=== PATIENT | male | born 1930 | race Caucasian/White ===

== ENCOUNTER 2017-01-03 18:29 | Inpatient (IN) | payer MEDICARE, BC ==
[2017-01-03 20:12] LABS: Hematocrit 32 % (42-52); Hemoglobin 10.4 g/dl (14.0-18.0); Mean Corpuscular HGB Conc 32 g/dl (31-36); Mean Corpuscular Hemoglobin 26 pg (27-31); Mean Corpuscular Volume 80 fL (80-94); Mean Platelet Volume 9 um3 (7.4-10.4); Red Blood Count 4.04 10^6/ul (4.0-5.4); Red Cell Distribution Width 17 % (10.5-15); White Blood Count 5.9 10^3/ul (3.5-10.8)
[2017-01-03 20:28] LABS: Albumin 3.1 g/dL (3.2-5.2); BUN/Creatinine Ratio 28.2 (8-20); C Reactive Protein 23.65 mg/L (< 5.00); Calcium 8.7 mg/dL (8.6-10.3); EGFR African American 54.7 (>60); EGFR Non-African American 42.5 (>60); Globulin 3.4 g/dL (2-4); Magnesium 2.3 mg/dL (1.9-2.7); Potassium 4.5 mmol/L (3.5-5.0); Total Bilirubin 0.5 mg/dL (0.2-1.0); Total Protein 6.5 g/dL (6.4-8.9)
[2017-01-03 20:32] LABS: Troponin I 0.06 ng/mL (<0.04)
--- NOTE | 2017-01-03 20:32 | RAD ---
HISTORY: Shortness of breath COMPARISONS: December 17, 2016 VIEWS: 1: frontal portable view of the chest at 8:20 PM FINDINGS: LINES AND TUBES: None. CARDIOMEDIASTINAL SILHOUETTE: The cardiomediastinal silhouette is normal for portable technique. PLEURA: There is blunting of left costophrenic angle. There is persistent loculated pleural fluid on the right. LUNG PARENCHYMA: There is multifocal confluent alveolar opacification throughout both lung salvador. ABDOMEN: The upper abdomen is clear. There is no subphrenic gas. BONES AND SOFT TISSUES: Degenerative changes are noted IMPRESSION: 1. MULTIFOCAL CONSOLIDATION THROUGHOUT BOTH LUNGS. 2. LEFT PLEURAL EFFUSION. 3. AGAIN NOTED IS LOCULATED RIGHT PLEURAL EFFUSION. 4. RECOMMEND FOLLOW-UP UNTIL RESOLUTION TO EXCLUDE UNDERLYING PULMONARY PARENCHYMAL PATHOLOGY
[2017-01-03 20:33] LABS: Urine Bacteria Absent (Absent); Urine Bilirubin Negative (Negative); Urine Glucose Negative (Negative); Urine Nitrite Negative (Negative)
[2017-01-03 21:07] LABS: TSH (Thyroid Stimulating Horm) 2.72 mcIU/mL (0.34-5.60)
[2017-01-03] MEDS ORDERED: Acetaminophen TAB* 325 MG PO PRN (21:39)
[2017-01-03] MEDS ORDERED: Furosemide IV* 10 MG/ML 10 ML VIAL (100 MG) IV ONE (21:40)
[2017-01-03] MEDS ORDERED: Aspirin Low Dose CHEW TAB* 81 MG PO ONE (21:40)
[2017-01-03] MEDS ORDERED: Ondansetron INJ* 2 MG/ML VIAL IV PRN (21:41)
[2017-01-03] MEDS ORDERED: Melatonin (NF) 3 MG TAB PO PRN (21:41)
--- NOTE | 2017-01-03 22:03 | RAD ---
HISTORY: Bilateral lower extremity edema COMPARISONS: None relevant TECHNIQUE: Multiple transverse and longitudinal ultrasound images were obtained of the bilateral lower extremities from the level of the common femoral vein inferiorly through to the infrapopliteal veins using grayscale, color Doppler, and spectral Doppler imaging with and without compression and with augmentation. FINDINGS: VEINS: The venous system of the bilateral lower extremities is compressible throughout its course, with normal flow on color Doppler imaging and normal response to augmentation on spectral Doppler imaging. SOFT TISSUES: There is extensive subcutaneous edema. OTHER FINDINGS: None. IMPRESSION: NO RIGHT LOWER EXTREMITY DEEP VEIN THROMBOSIS. NO LEFT LOWER EXTREMITY DEEP VEIN THROMBOSIS
--- NOTE | 2017-01-03 22:27 | HP ---
H&P (Free Text) History and Physical: PCP: Sandoval Garza MD Cardiology: Maddie Mora MD Urology: Nikhil Pruitt MD Date/Time: 01/03/20172139 CC: LE swelling HPI: Mr Vela is an 86YO male HX cardiomyopathy EF reportedly 10%, chronic systolic HF, CAD/MA, HLD, HTN who experienced a significant functional decline ~ 6 weeks ago while still living in [place]. He moved to [place] to live with one of his daughters 3 weeks ago experiencing progressive SOB, fatigue, generalized weakness, and BLE swelling for which his daughter brings him in tonight concerned for DVT. Mr Vela declines to give his history requesting his daughter do it for him. He does participate by interjecting corrections occasional questions and answering current status requests. He denies chest pain , palpitations, N/V, F/C, focal weakness, or other acute issues. 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 HLD HTN uretheral stricture s/p stent dementia BPH Ambulatory Orders Aspirin Low Dose CHEW TAB* [Aspirin Low Dose TAB*] 81 mg PO DAILY 01/03/17 Donepezil TAB* [Aricept 5 MG TAB*] 5 mg PO DAILY 01/03/17 Finasteride TAB* [Proscar TAB*] 5 mg PO DAILY 01/03/17 Furosemide TAB* [Lasix TAB*] 40 mg PO DAILY 01/03/17 Metoprolol & Hydrochlorothiazi [Metoprolol Succinate ER/H 25-12.5 mg] 0.5 tab PO DAILY 01/03/17 Probiotic Product [Digestive Advantage Probi] 1 chw PO DAILY 01/03/17 Rosuvastatin Calcium [Crestor] 20 mg PO QPM 01/03/17 Sacubitril-Valsartan [Entresto 24-26 mg] 1 tab PO BID 01/03/17 Spironolactone TAB* [Aldactone TAB*] 25 mg PO DAILY 01/03/17 Sulfamethox/Trimethoprim DS* [Bactrim DS 800/160 TAB*] 1 tab PO BID 01/03/17 Tamsulosin CAP* [Flomax CAP*] 0.4 mg PO DAILY 01/03/17 Allergies Shellfish Allergy Allergy (Verified 01/03/17 19:06) Hives PSurgHx repair of ruptured AVM urethral stent SocHx: former smoker quit 30years ago, no alcohol or recreational drugs; , lives with his daughter starting 3 weeks ago, moved from [place]; full code status , needs revisiting FamHx: reviewed, non-contributory ROS: as above, otherwise reviewed and all were negative vitals: Vital Signs Temp 37.1 C 01/03/17 18:40 Pulse 81 01/03/17 20:00 Resp 27 01/03/17 20:00 BP 98/63 01/03/17 19:30 Pulse Ox 98 01/03/17 20:00 Intake & Output 01/02/17 01/03/17 01/03/17 23:59 11:59 23:59 Weight 82.554 kg Constitutional: NAD, normally developed, well-nourished elderly white male HEENM: atraumatic; sclera/conjunctiva: non-icteric/clear; hearing: clinically mildly decreased; oropharynx: clear, mucosa moist Neck: soft tissue: non-tender; thyroid: normal Pulmonary: clear to auscultation bilaterally, good aeration, no accessory muscle use CV: RR/RR, normal S1S2, no carotid bruit, 3.5cm jugular venous distention at 45 degrees, 2+ B DP/PT, 3+ BLE edema at the distal tib/fib decreased to 1+ at the mid-thigh Abdominal: soft, non-distended, non-tender, no rebound/guarding/rigidity, normoactive bowel sounds, no hepatosplenomegaly or masses, no costovertebral angle tenderness Musculoskeletal: general: grossly intact, no palpable tenderness, negative Kirby 's B Integumental: normal appearance and texture of exposed skin Psychiatric orientation: AA&O to PPS affect: calm mood: cooperative eye contact: fair content: reliable, when he answers, defers most questions to his daughter responses: timely insight: fair Testing: Lab Results 01/03/17 01/03/17 01/03/17 Range/Units 19:10 20:02 20:02 WBC (3.5-10.8) 10^3/ul RBC (4.0-5.4) 10^6/ul Hgb (14.0-18.0) g/dl Hct (42-52) % MCV (80-94) fL MCH (27-31) pg MCHC (31-36) g/dl RDW (10.5-15) % Plt Count (150-450) 10^3/ul MPV (7.4-10.4) um3 Neut % (Auto) (38-83) % Lymph % (Auto) (25-47) % [place] % (Auto) (1-9) % Eos % (Auto) (0-6) % Baso % (Auto) (0-2) % Absolute Neuts (auto) (1.5-7.7) 10^3/ul Absolute Lymphs (auto) (1.0-4.8) 10^3/ul Absolute Monos (auto) (0-0.8) 10^3/ul Absolute Eos (auto) (0-0.6) 10^3/ul Absolute Basos (auto) (0-0.2) 10^3/ul Absolute Nucleated RBC 10^3/ul Nucleated RBC % INR (Anticoag Therapy) 1.06 (0.89-1.11) APTT 22.8 L (26.0-36.3) seconds Sodium (133-145) mmol/L Potassium (3.5-5.0) mmol/L Chloride (101-111) mmol/L Carbon Dioxide (22-32) mmol/L Anion Gap (2-11) mmol/L BUN (6-24) mg/dL Creatinine (0.67-1.17) mg/dL Est GFR ( Amer) (>60) Est GFR (Non-Af Amer) (>60) BUN/Creatinine Ratio (8-20) Glucose (70-100) mg/dL Lactic Acid (0.5-2.0) mmol/L Calcium (8.6-10.3) mg/dL Magnesium (1.9-2.7) mg/dL Total Bilirubin (0.2-1.0) mg/dL AST (13-39) U/L ALT (7-52) U/L Alkaline Phosphatase (34-104) U/L Total Creatine Kinase (10-223) U/L CK-MB (CK-2) (0.6-6.3) ng/mL Troponin I (<0.04) ng/mL C-Reactive Protein (< 5.00) mg/L B-Natriuretic Peptide 6539 H ( - 100) pg/mL Total Protein (6.4-8.9) g/dL Albumin (3.2-5.2) g/dL Globulin (2-4) g/dL Albumin/Globulin Ratio (1-3) Lipase (11.0-82.0) U/L TSH (0.34-5.60) mcIU/mL Urine Color Yellow Urine Appearance Clear Urine pH 5.0 (5-9) Ur Specific [place] 1.010 (1.010-1.030) Urine Protein Negative (Negative) Urine Ketones Negative (Negative) Urine Blood Negative (Negative) Urine Nitrate Negative (Negative) Urine Bilirubin Negative (Negative) Urine Urobilinogen Negative (Negative) Ur Leukocyte Esterase 2+ H (Negative) Urine WBC (Auto) 1+(6-10/hpf) H (Absent) Urine RBC (Auto) Trace(0-2/hpf) (Absent) Urine Bacteria Absent (Absent) Hyaline Casts Present H (Absent) Urine Glucose Negative (Negative) 01/03/17 01/03/17 01/03/17 Range/Units 20:02 20:02 20:02 WBC 5.9 (3.5-10.8) 10^3/ul RBC 4.04 (4.0-5.4) 10^6/ul Hgb 10.4 L (14.0-18.0) g/dl Hct 32 L (42-52) % MCV 80 (80-94) fL MCH 26 L (27-31) pg MCHC 32 (31-36) g/dl RDW 17 H (10.5-15) % Plt Count 203 (150-450) 10^3/ul MPV 9 (7.4-10.4) um3 Neut % (Auto) 76.1 (38-83) % Lymph % (Auto) 13.2 L (25-47) % [place] % (Auto) 8.8 (1-9) % Eos % (Auto) 1.2 (0-6) % Baso % (Auto) 0.7 (0-2) % Absolute Neuts (auto) 4.5 (1.5-7.7) 10^3/ul Absolute Lymphs (auto) 0.8 L (1.0-4.8) 10^3/ul Absolute Monos (auto) 0.5 (0-0.8) 10^3/ul Absolute Eos (auto) 0.1 (0-0.6) 10^3/ul Absolute Basos (auto) 0 (0-0.2) 10^3/ul Absolute Nucleated RBC 0.01 10^3/ul Nucleated RBC % 0.1 INR (Anticoag Therapy) (0.89-1.11) APTT (26.0-36.3) seconds Sodium 134 (133-145) mmol/L Potassium 4.5 (3.5-5.0) mmol/L Chloride 100 L (101-111) mmol/L Carbon Dioxide 30 (22-32) mmol/L Anion Gap 4 (2-11) mmol/L BUN 44 H (6-24) mg/dL Creatinine 1.56 H (0.67-1.17) mg/dL Est GFR ( Amer) 54.7 (>60) Est GFR (Non-Af Amer) 42.5 (>60) BUN/Creatinine Ratio 28.2 H (8-20) Glucose 109 H (70-100) mg/dL Lactic Acid 1.1 (0.5-2.0) mmol/L Calcium 8.7 (8.6-10.3) mg/dL Magnesium 2.3 (1.9-2.7) mg/dL Total Bilirubin 0.50 (0.2-1.0) mg/dL AST 27 (13-39) U/L ALT 25 (7-52) U/L Alkaline Phosphatase 107 H (34-104) U/L Total Creatine Kinase 37 (10-223) U/L CK-MB (CK-2) 3.0 (0.6-6.3) ng/mL Troponin I 0.06 H* (<0.04) ng/mL C-Reactive Protein 23.65 H (< 5.00) mg/L B-Natriuretic Peptide ( - 100) pg/mL Total Protein 6.5 (6.4-8.9) g/dL Albumin 3.1 L (3.2-5.2) g/dL Globulin 3.4 (2-4) g/dL Albumin/Globulin Ratio 0.9 L (1-3) Lipase 31 (11.0-82.0) U/L TSH 2.72 (0.34-5.60) mcIU/mL Urine Color Urine Appearance Urine pH (5-9) Ur Specific [place] (1.010-1.030) Urine Protein (Negative) Urine Ketones (Negative) Urine Blood (Negative) Urine Nitrate (Negative) Urine Bilirubin (Negative) Urine Urobilinogen (Negative) Ur Leukocyte Esterase (Negative) Urine WBC (Auto) (Absent) Urine RBC (Auto) (Absent) Urine Bacteria (Absent) Hyaline Casts (Absent) Urine Glucose (Negative) ECG, personally reviewed: NSR rate86, non-specific interventricular delay, ST depression V2-6, T-wave inversions V1-3/I/II/III/AVF CXR, personally reviewed: IMPRESSION: 1. MULTIFOCAL CONSOLIDATION THROUGHOUT BOTH LUNGS. 2. LEFT PLEURAL EFFUSION. 3. AGAIN NOTED IS LOCULATED RIGHT PLEURAL EFFUSION. 4. RECOMMEND FOLLOW-UP UNTIL RESOLUTION TO EXCLUDE UNDERLYING PULMONARY PARENCHYMAL PATHOLOGY US venous BLE: IMPRESSION: NO RIGHT LOWER EXTREMITY DEEP VEIN THROMBOSIS. NO LEFT LOWER EXTREMITY DEEP VEIN THROMBOSIS US scrotum/testes: IMPRESSION: No evidence of testicular torsion, orchitis, or epididymitis. Small bilateral hydroceles and varicoceles. Small bilateral epididymal cysts. Impression: 86M presenting with acute on chronic mixed systolic & diastolic HF with elevated troponin DIAGNOSIS & PLAN Primary acute on chronic mixed systolic & diastolic HF : cardiomyopathy EF reportedly 10% by ECHO : obtain ECHO performed at Dr Mora's office last Wednesday : furosemide diuresis : electrolyte monitoring : guajardo for accurate I&Os, prevention of skin breakdown : strict I&Os : daily weights : supplemental oxygen : heart healthy diet : supportive care acute on chronic renal insufficiency : suspect 2nd poor cardiac output : diurese & trend elevated troponin : suspect demand ischemia vs baseline value 2nd chronic renal insufficiency : aspirin : continue outpatient beta anushka : telemetry : supplemental oxygen : trend normocytic anemia, chronic, worse : suspect 2nd CHF : trend Secondary HX CVA : continue ASA CAD/MA : continue ASA HX intracranial hemorrhage 2nd AVM : remotely s/p op : no acute issues HLD : continue rosuvastatin HTN : continue outpatient regimen uretheral stricture s/p stent & BPH : consider urology consult in AM, if necessary : continue finasteride & tamsulosin dementia : continue donepezil Admission Rational: inpatient for CHF not anticipated to be adequately improved w/i 48h to allow for discharge DVTp: heparin SQ & SCDs Code Status: full, need follow up HCP: daughter, Hattie [phone]
--- NOTE | 2017-01-04 00:16 | ED ---
Chitra Schmitt Rebecca, scribed for Wilfredo Mcadams on 01/03/17 at 2006 . Lower Extremity - HPI Summary HPI Summary: Pt is an 86 y/o M BIBA accompanied his daughter who presents to ED c/o penile swelling, RLE swelling and generalized weakness. Sx were noticed earlier today and have been constant since onset. The pt can typically walk using his walker though today he was unable to. Daughter has treated sx with 2 extra doses of Lasix. RLE swelling is aggravated by standing and alleviated by laying down. Denies fever. PMHx CHF and recent Dx of bladder infection. Pt lives with his daughter. Manager Utilization Review is Dr. Mora and urologist is Dr. Pruitt. - History of Current Complaint Chief Complaint: EDExtremityLower Stated Complaint: LEG SWELLING Time Seen by Provider: 01/03/17 20:03 Hx Obtained From: Family/Stamp Clerk - Daughter Onset/Duration: Still Present Severity Currently: None Pain Intensity: 0 Pain Scale Used: 0-10 Numeric Timing: Constant Location: Is Discrete @ - RLE and Penie Associated Signs And Symptoms: Positive: Swelling - Penile and RLE, Weakness - Generalized. Negative: Fever Aggravating Factor(s): Standing Alleviating Factor(s): Other - Laying down - Allergies/Home Medications Allergies/Adverse Reactions: Allergies Allergy/AdvReac Type Severity Reaction Status Date / Time Shellfish Allergy Allergy Hives Verified 01/03/17 19:06 Home Medications: Home Medications Aspirin Low Dose CHEW TAB* [Aspirin Low Dose TAB*] 81 mg PO DAILY 01/03/17 [ History Confirmed 01/03/17] Donepezil TAB* [Aricept 5 MG TAB*] 5 mg PO DAILY 01/03/17 [History Confirmed 11/12] Finasteride TAB* [Proscar TAB*] 5 mg PO DAILY 01/03/17 [History Confirmed ] Furosemide TAB* [Lasix TAB*] 40 mg PO DAILY 01/03/17 [History Confirmed 01/03/17 ] Metoprolol & Hydrochlorothiazi [Metoprolol Succinate ER/H 25-12.5 mg] 0.5 tab PO DAILY 01/03/17 [History Confirmed 01/03/17] Probiotic Product [Digestive Advantage Probi] 1 chw PO DAILY 01/03/17 [History Confirmed 01/03/17] Rosuvastatin Calcium [Crestor] 20 mg PO QPM 01/03/17 [History Confirmed 01/03/17 ] Sacubitril-Valsartan [Entresto 24-26 mg] 1 tab PO BID 01/03/17 [History Confirmed 01/03/17] Spironolactone TAB* [Aldactone TAB*] 25 mg PO DAILY 01/03/17 [History Confirmed 01/03/17] Sulfamethox/Trimethoprim DS* [Bactrim DS 800/160 TAB*] 1 tab PO BID 01/03/17 [ History Confirmed 01/03/17] Tamsulosin CAP* [Flomax CAP*] 0.4 mg PO DAILY 01/03/17 [History Confirmed ] PMH/Surg Hx/FS Hx/Imm Hx Cardiovascular History: Reports: Hx Congestive Heart Failure Respiratory History: Reports: Other Respiratory Problems/Disorders - HX OF PLEURAL EFFUSION Infectious Disease History: Yes Infectious Disease History: Denies: Traveled Outside the [place] in Last 30 Days - Family History Known Family History: Negative: Diabetes - Social History Alcohol Use: None Substance Use Type: Reports: None Smoking Status (MU): Unknown if Ever Smoked Review of Systems Negative: Fever Positive: Other - RLE and penile swelling Positive: Weakness - Generalized All Other Systems Reviewed And Are Negative: Yes Physical Exam - Summary Physical Exam Summary: Appearance: Well appearing, no pain distress Skin: warm, dry, reflects adequate perfusion Head/face: normal Eyes: EOMI, BRIGIDO ENT: normal Neck: supple, nontender Respiratory: CTA, breath sounds present Cardiovascular: RRR, pulses symmetrical Abdomen: nontender, soft Bowel: present Musculoskeletal: strength/ROM intact, edema in the scrotal and penis area bilateral pedal edema Neuro: alert and ocnfused Triage Information Reviewed: Yes Vital Signs On Initial Exam: Initial Vitals Temp Pulse Resp BP Pulse Ox 98.7 F 83 20 96/60 100 01/03/17 18:40 01/03/17 18:40 01/03/17 18:40 01/03/17 18:40 01/03/17 18:40 Vital Signs Reviewed: Yes - [place] Coma Scale Coma Scale Total: 15 Diagnostics - Vital Signs Vital Signs Temp Pulse Resp BP Pulse Ox 01/03/17 18:40 98.7 F 83 20 96/60 100 - Laboratory Result Diagrams: 01/03/17 20:02 01/03/17 20:02 Lab Statement: Any lab studies that have been ordered have been reviewed, and results considered in the medical decision making process. - Radiology CXR Xray Interpretation: Positive (See Comments) - 1. MULTIFOCAL CONSOLIDATION THROUGHOUT BOTH LUNGS. 2. LEFT PLEURAL EFFUSION. 3. AGAIN NOTED IS LOCULATED RIGHT PLEURAL EFFUSION. 4. RECOMMEND FOLLOW-UP UNTIL RESOLUTION TO EXCLUDE UNDERLYING PULMONARY PARENCHYMAL PATHOLOGY ED physician reviewed radiology report and agrees. Radiology Interpretation Completed By: Radiologist - Ultrasound No standard instances Ultrasound Interpretation: No Acute Changes - Venous Doppler Study: NO RIGHT LOWER EXTREMITY DEEP VEIN THROMBOSIS. NO LEFT LOWER EXTREMITY DEEP VEIN THROMBOSIS ED physician reviewed radiology report and agrees. Scrotum US: No evidence of testicular torsion, orchitis, or epididymitis. Small bilateral hydroceles and varioceles. Small bilateral epididymal cysts. ED physician reviewed radiology report and agrees. Ultrasound Interpretation Completed By: Radiologist - EKG 2013 Cardiac Rate: NL - 86 bpm EKG Rhythm: Sinus Rhythm EKG Interpretation: Bifasicular block and RBBB Lower Extremity Course/Dx - Course Assessment/Plan: Pt is an 86 y/o M BIBA accompanied his daughter who presents to ED c/o penile swelling, RLE swelling and generalized weakness. Sx were noticed earlier today and have been constant since onset. The pt can typically walk using his walker though today he was unable to. Daughter has treated sx with 2 extra doses of Lasix. RLE swelling is aggravated by standing and alleviated by laying down. Denies fever. PMHx CHF and recent Dx of bladder infection. Manager Utilization Review is Dr. Mora and urologist is Dr. Pruitt. CXR results above. Venous Doppler Study and scrotum US reveal no acute findings. EKG is sinus rhythm with RBBB. Troponin of 0.06. UA was done. Discussed care of pt with Dr. Hopson who accepts pt for admission. Pt will be admitted with Dx of CHF, renal failure, elevated troponin and UTI. He and his daughter understand and agree. Medications reviewed. - Diagnoses Provider Diagnoses: CHF (congestive heart failure), Renal failure, Elevated troponin, UTI (urinary tract infection) - Physician Notifications Discussed Care Of Patient With: Riley Hopson Time Discussed With Above Provider: 21:38 Instructed by Provider To: Other - Accepts pt for admission. Discharge - Discharge Plan Condition: Stable Disposition: ADMITTED TO [facility] Referrals: Daniella Garza MD [Primary Care Provider] - The documentation as recorded by the Chitra lynch Rebecca accurately reflects the service I personally performed and the decisions made by , Wilfredo Mcadams.
[2017-01-04 05:54] LABS: Hematocrit 30 % (42-52); Hemoglobin 9.6 g/dl (14.0-18.0); Mean Corpuscular HGB Conc 32 g/dl (31-36); Mean Corpuscular Hemoglobin 26 pg (27-31); Mean Corpuscular Volume 80 fL (80-94); Mean Platelet Volume 9 um3 (7.4-10.4); Red Blood Count 3.72 10^6/ul (4.0-5.4); Red Cell Distribution Width 18 % (10.5-15); White Blood Count 5.5 10^3/ul (3.5-10.8)
[2017-01-04] MEDS: Omeprazole CAP* 20 MG PO SCH (06:16)
[2017-01-04] MEDS: Heparin VIAL(*) 5000 UNITS/ML VIAL (FIVE THOUSAND) SUBCUT SCH ×2 (06:17→13:06)
[2017-01-04 06:27] LABS: BUN/Creatinine Ratio 27.8 (8-20); Calcium 8.4 mg/dL (8.6-10.3); EGFR African American 52.3 (>60); EGFR Non-African American 40.7 (>60); Potassium 4.7 mmol/L (3.5-5.0)
[2017-01-04 06:43] LABS: Troponin I 0.05 ng/mL (<0.04)
--- NOTE | 2017-01-04 07:48 | RAD ---
HISTORY: The penile and scrotal edema, torsion testis COMPARISONS: None TECHNIQUE: Multiple transverse and longitudinal ultrasound images were obtained of the scrotum, using grayscale, color Doppler, and spectral Doppler imaging. FINDINGS: RIGHT: RIGHT TESTICLE: The right testicle measures 4.7 x 2.6 x 3.2 cm. The right testicle is homogeneous in echotexture, without testicular parenchymal mass. Normal arterial and venous waveforms are identified within the right testicle on spectral Doppler imaging. RIGHT EPIDIDYMIS: The right epididymis measures 1.2 cm at the head. There is a small epididymal head cyst measuring approximately 0.3 cm. RIGHT SCROTUM: There is mild diffuse scrotal wall edema. There is a small hydrocele. There is a small varicocele. LEFT: LEFT TESTICLE: The left testicle measures 4.3 x 2.5 x 3.2 cm. The left testicle is homogeneous in echotexture, without testicular parenchymal mass. Normal arterial and venous waveforms are identified within the left testicle on spectral Doppler imaging. LEFT EPIDIDYMIS: The left epididymis measures 1 cm at the head. There is a 0.6 cm left epididymal head cyst. LEFT SCROTUM: There is mild diffuse scrotal wall edema. There is a small hydrocele. There is a small varicocele OTHER: None IMPRESSION: 1. NO TESTICULAR PARENCHYMAL MASS. 2. NO SONOGRAPHIC FEATURES OF TORSION. PLEASE NOTE THAT PARTIAL OR INTERMITTENT TORSION MAY BE SONOGRAPHICALLY NORMAL. 3. MILD DIFFUSE SCROTAL WALL EDEMA. 4. BILATERAL SMALL HYDROCELES. 5. BILATERAL VARICOCELES.
[2017-01-04] MEDS ORDERED: Hydrochlorothiazide TAB* 25 MG PO SCH (09:00)
[2017-01-04] MEDS ORDERED: Donepezil TAB* 5 MG PO SCH (09:00)
[2017-01-04] MEDS ORDERED: Influenza VAC *QUAD* 2017-18* 0.5 ML SYRINGE IM ONE (09:00)
[2017-01-04] MEDS: Docusate CAP* 100 MG PO SCH ×2 (09:12→21:59)
[2017-01-04] MEDS: Sacubitril/Valsartan 24/26(NF) 1 TAB PO SCH (09:16)
[2017-01-04] MEDS: Finasteride TAB* 5 MG PO SCH (09:24)
[2017-01-04] MEDS: Spironolactone TAB* 25 MG PO SCH (09:24)
[2017-01-04] MEDS: Metoprolol Succinate XL TAB* 25 MG PO SCH (09:24)
[2017-01-04] MEDS: Sulfamethox/Trimethoprim DS 800/160* TAB PO SCH ×2 (09:24→21:55)
[2017-01-04] MEDS: Aspirin Low Dose CHEW TAB* 81 MG PO SCH (09:24)
[2017-01-04] MEDS: Furosemide IV* 10 MG/ML 10 ML VIAL (100 MG) IV SCH ×2 (09:25→13:06)
[2017-01-04] MEDS: Tamsulosin CAP* 0.4 MG PO SCH (09:25)
--- NOTE | 2017-01-04 16:52 | PN ---
Subjective Date of Service: 01/04/17 Interval History: Pt feels much better. Cynthia was placed this aM, now significant UO and edema improved, scrotal edema resolved. Had a long d/w pt's daughter presents in the room and pt. Reviewed med records from [place] and Dr. Mora's office. Pt has severe mitral regurgitation with EF 10-20%, he wishes no cardiac surgery. Palliative care and hospice discussed. Pt is from [facility] and can be referred to [facility] services for hopsice at d/c- as d/w our hospice service, he would be an appropriate candidate for home hospice Objective Active Medications: Acetaminophen (Tylenol Tab*) 650 mg PO Q6H PRN PRN Reason: FEVER/PAIN Aspirin (Aspirin Low Dose Tab*) 81 mg PO DAILY [facility] Last Admin: 01/04/17 09:24 Dose: 81 mg Atorvastatin Calcium (Lipitor*) 40 mg PO QPM [facility] Docusate Sodium (Colace Cap*) 200 mg PO BID [facility] Last Admin: 01/04/17 09:12 Dose: Not Given Donepezil HCl (Aricept Tab*) 5 mg PO BEDTIME [facility]ANNY Finasteride (Proscar Tab*) 5 mg PO DAILY [facility] Last Admin: 01/04/17 09:24 Dose: 5 mg Furosemide (Lasix Iv*) 60 mg IV 0800,1200 [facility] Last Admin: 01/04/17 13:06 Dose: 60 mg Heparin Sodium (Porcine) (Heparin Vial(*)) 5,000 units SUBCUT Q8HR [facility] Last Admin: 01/04/17 13:06 Dose: 5,000 units Hydrochlorothiazide (Hydrodiuril Tab*) 6.25 mg PO DAILY [facility] Last Admin: 01/04/17 09:24 Dose: 6.25 mg Melatonin (Melatonin (Nf)) 3 mg PO BEDTIME PRN; Protocol PRN Reason: Sleep Metoprolol Succinate (Toprol Xl Tab*) 12.5 mg PO DAILY [facility] Last Admin: 01/04/17 09:24 Dose: 12.5 mg Omeprazole (Prilosec Cap*) 20 mg PO DAILY@0600 [facility] Last Admin: 01/04/17 06:16 Dose: 20 mg Ondansetron HCl (Zofran Inj*) 4 mg IV Q6H PRN PRN Reason: NAUSEA Sacubitril/Valsartan (Entresto (Nf)) 1 tab PO BID [facility] Last Admin: 01/04/17 09:16 Dose: Not Given Spironolactone (Aldactone Tab*) 25 mg PO DAILY [facility] Last Admin: 01/04/17 09:24 Dose: 25 mg Tamsulosin HCl (Flomax Cap*) 0.4 mg PO DAILY [facility] Last Admin: 01/04/17 09:25 Dose: 0.4 mg Trimethoprim/Sulfamethoxazole (Bactrim Ds 800/160 Tab*) 1 tab PO BID [facility] Last Admin: 01/04/17 09:24 Dose: 1 tab Vital Signs 01/03/17 01/03/17 01/03/17 22:13 23:00 23:24 Temperature 97.9 F Pulse Rate 83 Respiratory 22 20 Rate Blood Pressure 110/74 (mmHg) O2 Sat by Pulse 91 Oximetry 01/04/17 01/04/17 01/04/17 00:13 03:04 07:44 Temperature 97.6 F 97.4 F Pulse Rate 79 71 75 Respiratory 22 16 24 Rate Blood Pressure 102/63 93/55 101/65 (mmHg) O2 Sat by Pulse 93 94 96 Oximetry 01/04/17 01/04/17 01/04/17 08:00 08:59 11:22 Temperature 97.5 F Pulse Rate Respiratory 24 20 Rate Blood Pressure 97/58 (mmHg) O2 Sat by Pulse 96 Oximetry 01/04/17 01/04/17 11:40 15:19 Temperature 97.4 F Pulse Rate 75 82 Respiratory 16 Rate Blood Pressure 92/50 (mmHg) O2 Sat by Pulse 95 97 Oximetry Oxygen Devices in Use Now: None Appearance: 86 yo M in nAD, AAOx3, poor historian, forgetful Eyes: No Scleral Icterus, PERRLA Ears/Nose/Mouth/Throat: NL Teeth, Lips, Gums, Mucous Membranes Moist Neck: NL Appearance and Movements; NL JVP Respiratory: Symmetrical Chest Expansion and Respiratory Effort, - - crackles at b/l bases Cardiovascular: - - regular, 2/6 NEGIN at apex Abdominal: NL Sounds; No Tenderness; No Distention, No Hepatosplenomegaly Lymphatic: No Cervical Adenopathy Extremities: No Clubbing, Cyanosis, - - +1 pitting edema b/l entire LE's, scrotal edema resolved Skin: No Nodules or Sclerosis Neurological: NL Muscle Strength and Tone Result Diagrams: 01/04/17 05:45 01/04/17 05:45 Assess/Plan/Problems-Billing Assessment: 86 yo M with recent dx of urethral stricture(daughter caths daily and prn at home, had Marie placed this admission), new CHF with EF 10-20% and severe MR, who arrived from [place] to live with daughter 3 weeks ago presents with leg edema, scrotal edema and CHF - Patient Problems (1) CHF (congestive heart failure) Comment: acute , systolic Due to cardiomyopathy and severe mitral regurg. spoke wt lenght with pt and daughter. Pt is hospice appropiate. will cont to diurese with IV Lasix x 24-48 hrs and d/c home on PO lasix and hospice referral Stop HCTZ, cont lopressor, Aldactone and Lasix. Low SBP's due to low EF and MR, now in acceptable range. Cont Sacubitril/Valsartan, although if SBP cont to trend down may need to stop it (2) Urinary retention Comment: h/o urethral stricure. Pt uses straight cath at home Plan to cont Marie for now when onIV Lasix and home on straight cath (3) UTI (urinary tract infection) Comment: dx on 12/29/16 with Klebsiella. Cont Bactrim (4) CKD (chronic kidney disease) stage 3, GFR 30-59 ml/min Comment: with worsening creat-suspect spurious due to Bactrim, cont to monitor (5) Troponin level elevated Comment: due to CHF and demand ischemia
[2017-01-04] MEDS: Atorvastatin* 40 MG TAB PO SCH (18:03)
[2017-01-04] MEDS: Donepezil TAB* 5 MG PO SCH (21:55)
[2017-01-05] MEDS ORDERED: rOPINIRole TAB* 1 MG PO ONE
[2017-01-05] MEDS: Sacubitril/Valsartan 24/26(NF) 1 TAB PO SCH ×2 (00:02→02:22)
[2017-01-05] MEDS: PTO: Sacubitril/Valsartan 24/26(NF) 1 TAB PO SCH ×3 (00:11→21:15)
[2017-01-05 05:28] LABS: Hematocrit 30 % (42-52); Hemoglobin 9.8 g/dl (14.0-18.0); Mean Corpuscular HGB Conc 33 g/dl (31-36); Mean Corpuscular Hemoglobin 26 pg (27-31); Mean Corpuscular Volume 80 fL (80-94); Mean Platelet Volume 9 um3 (7.4-10.4); Red Blood Count 3.74 10^6/ul (4.0-5.4); Red Cell Distribution Width 18 % (10.5-15); White Blood Count 5.7 10^3/ul (3.5-10.8)
[2017-01-05] MEDS: Omeprazole CAP* 20 MG PO SCH (05:42)
[2017-01-05 05:49] LABS: BUN/Creatinine Ratio 27.5 (8-20); Calcium 8.6 mg/dL (8.6-10.3); EGFR African American 53.1 (>60); EGFR Non-African American 41.3 (>60); Magnesium 2.1 mg/dL (1.9-2.7); Potassium 4.2 mmol/L (3.5-5.0)
[2017-01-05] MEDS: Docusate CAP* 100 MG PO SCH ×2 (07:37→21:07)
[2017-01-05] MEDS: Furosemide IV* 10 MG/ML 10 ML VIAL (100 MG) IV SCH (07:53)
[2017-01-05] MEDS ORDERED: Furosemide IV* 10 MG/ML 10 ML VIAL (100 MG) IV ONE (08:00)
[2017-01-05] MEDS: Spironolactone TAB* 25 MG PO SCH (08:40)
[2017-01-05] MEDS: Finasteride TAB* 5 MG PO SCH (08:40)
[2017-01-05] MEDS: Aspirin Low Dose CHEW TAB* 81 MG PO SCH (08:40)
[2017-01-05] MEDS: Tamsulosin CAP* 0.4 MG PO SCH (08:40)
[2017-01-05] MEDS: Sulfamethox/Trimethoprim DS 800/160* TAB PO SCH ×2 (08:40→21:15)
[2017-01-05] MEDS: Metoprolol Succinate XL TAB* 25 MG PO SCH (08:40)
--- NOTE | 2017-01-05 17:14 | PN ---
Progress Note - Progress Note Date of Service: 01/04/17 Note: I was contacted by Dr. Yoselin Malloy about this patient who presented to the ER here with decompensated CHF and CRF. The patient is an 86 year old man with a history of CAD/WI and ischemic cardiomyopathy, who also has HLD and HTN, and now has an EF of ~10% with severe mitral regurgitation, so his cardiac output is severely compromised. He has experienced significant functional decline in the past month and a half due to his worsening dyspnea, edema,, fatigue and weakness. He has anemia and chronic renal failure, which makes his fluid balance management even more of a challenge, and he has elevated troponins, possibly due to demand ischemia. 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 I communicated with Dr. Malloy based on this patient's chart data, and feel there is no question that he is appropriate for hospice services with a prognosis of less than 6 months. He would like to avoid further hospitalizations and ER visits, and he is a resident of [facility], so should be referred to [facility] at the time of discharge so that he may remain at home in comfort with his end-stage cardiac failure.
[2017-01-05] MEDS: Atorvastatin* 40 MG TAB PO SCH (18:10)
--- NOTE | 2017-01-05 18:25 | PN ---
Subjective Date of Service: 01/05/17 Interval History: Pt feels well, no further complaints. Pt and daughter are interested in [facility]. Pt had approx 10 beats of asymptomatic V. tach early AM Objective Active Medications: Acetaminophen (Tylenol Tab*) 650 mg PO Q6H PRN PRN Reason: FEVER/PAIN Aspirin (Aspirin Low Dose Tab*) 81 mg PO DAILY [facility] Last Admin: 01/05/17 08:40 Dose: 81 mg Atorvastatin Calcium (Lipitor*) 40 mg PO QPM [facility] Last Admin: 01/05/17 18:10 Dose: 40 mg Docusate Sodium (Colace Cap*) 200 mg PO BID [facility] Last Admin: 01/05/17 07:37 Dose: Not Given Donepezil HCl (Aricept Tab*) 5 mg PO BEDTIME [facility] Last Admin: 01/04/17 21:55 Dose: 5 mg Finasteride (Proscar Tab*) 5 mg PO DAILY [facility] Last Admin: 01/05/17 08:40 Dose: 5 mg Furosemide (Lasix Iv*) 40 mg IV DAILY [facility] Melatonin (Melatonin (Nf)) 3 mg PO BEDTIME PRN; Protocol PRN Reason: Sleep Metoprolol Succinate (Toprol Xl Tab*) 12.5 mg PO DAILY [facility] Last Admin: 01/05/17 08:40 Dose: 12.5 mg Omeprazole (Prilosec Cap*) 20 mg PO DAILY@0600 [facility] Last Admin: 01/05/17 05:42 Dose: 20 mg Ondansetron HCl (Zofran Inj*) 4 mg IV Q6H PRN PRN Reason: NAUSEA Sacubitril/Valsartan (Entresto 24/(Nf)) 1 tab PO BID [facility] Last Admin: 01/05/17 08:40 Dose: 1 tab Spironolactone (Aldactone Tab*) 25 mg PO DAILY [facility] Last Admin: 01/05/17 08:40 Dose: 25 mg Tamsulosin HCl (Flomax Cap*) 0.4 mg PO DAILY [facility] Last Admin: 01/05/17 08:40 Dose: 0.4 mg Trimethoprim/Sulfamethoxazole (Bactrim Ds 800/160 Tab*) 1 tab PO BID [facility] Last Admin: 01/05/17 08:40 Dose: 1 tab Vital Signs 01/04/17 01/04/17 01/04/17 19:42 20:00 23:25 Temperature 97.3 F 97.4 F Pulse Rate 82 81 Respiratory 16 16 16 Rate Blood Pressure 92/53 96/66 (mmHg) O2 Sat by Pulse 100 91 Oximetry 01/04/17 01/05/17 01/05/17 23:34 04:10 07:34 Temperature 97.4 F 97.4 F Pulse Rate 77 78 Respiratory 20 24 Rate Blood Pressure 101/58 94/58 (mmHg) O2 Sat by Pulse 96 98 95 Oximetry 01/05/17 01/05/17 01/05/17 07:57 12:03 15:21 Temperature 97.3 F 97.4 F Pulse Rate 73 80 Respiratory 22 20 20 Rate Blood Pressure 87/52 84/52 (mmHg) O2 Sat by Pulse 96 96 Oximetry 01/05/17 15:23 Temperature Pulse Rate Respiratory Rate Blood Pressure 92/60 (mmHg) O2 Sat by Pulse Oximetry Oxygen Devices in Use Now: None Appearance: 86 yo M in NAD, aAOx3, TABLE M[place]AIN, poor historian Eyes: No Scleral Icterus, PERRLA Ears/Nose/Mouth/Throat: NL Teeth, Lips, Gums, Mucous Membranes Moist Neck: NL Appearance and Movements; NL JVP, Trachea Midline Respiratory: Symmetrical Chest Expansion and Respiratory Effort, Clear to Auscultation Cardiovascular: NL Sounds; No Murmurs; No JVD, - - 2/6 NEGIN at apex Abdominal: NL Sounds; No Tenderness; No Distention, No Hepatosplenomegaly Lymphatic: No Cervical Adenopathy Extremities: No Clubbing, Cyanosis - +1 pitting pedal edema b/l Skin: No Rash or Ulcers, No Nodules or Sclerosis Neurological: Alert and Oriented x 3, NL Muscle Strength and Tone Result Diagrams: 01/05/17 05:04 01/05/17 05:04 Assess/Plan/Problems-Billing Assessment: 86 yo M with recent dx of urethral stricture(daughter caths daily and prn at home, had Marie placed this admission), new CHF with EF 10-20% and severe MR, who arrived from [place] to live with daughter 3 weeks ago presents with leg edema, scrotal edema and CHF - Patient Problems (1) CHF (congestive heart failure) Comment: acute , systolic Due to cardiomyopathy and severe mitral regurg. spoke wt length with pt and daughter. Pt is hospice appropiate. will cont to diurese with IV Lasix x today and d/c home on PO lasix and hospice referral Stopped HCTZ, cont lopressor, Aldactone and Lasix. Low SBP's due to low EF and MR, now in acceptable range. Cont Sacubitril/Valsartan, although if SBP cont to trend down may need to stop it (2) Urinary retention Comment: h/o urethral stricure. Pt uses straight cath at home Plan to cont Marie for now and likely d/c with Marie in place (3) UTI (urinary tract infection) Comment: dx on 12/29/16 with Klebsiella. Cont Bactrim (4) CKD (chronic kidney disease) stage 3, GFR 30-59 ml/min Comment: with worsening creat-suspect spurious due to Bactrim, cont to monitor (5) Troponin level elevated Comment: due to CHF and demand ischemia (6) DVT prophylaxis Comment: pt was noted to have one episode of hematochezia on 01/04/17 due to that HSQ was stopped. cont SCD's\Hb stable Status and Disposition: inpatient , plan to d/c tomorrow
[2017-01-05] MEDS ORDERED: Furosemide IV* 10 MG/ML 2 ML VIAL (20 MG) IV ONE (18:32)
[2017-01-05] MEDS ORDERED: Ropinirole TAB* 0.5 MG TAB PO ONE (20:40)
[2017-01-05] MEDS ORDERED: Ropinirole TAB* 0.5 MG TAB PO SCH (21:00)
[2017-01-05] MEDS: Donepezil TAB* 5 MG PO SCH (21:15)
[2017-01-06] MEDS: Omeprazole CAP* 20 MG PO SCH (05:46)
[2017-01-06] MEDS: Finasteride TAB* 5 MG PO SCH (08:58)
[2017-01-06] MEDS: Tamsulosin CAP* 0.4 MG PO SCH (08:58)
[2017-01-06] MEDS: Aspirin Low Dose CHEW TAB* 81 MG PO SCH (08:58)
[2017-01-06] MEDS: Sulfamethox/Trimethoprim DS 800/160* TAB PO SCH (08:59)
[2017-01-06] MEDS ORDERED: Furosemide IV* 10 MG/ML VIAL (40 MG) IV SCH (09:00)
[2017-01-06] MEDS: Spironolactone TAB* 25 MG PO SCH (10:51)
[2017-01-06] MEDS: Docusate CAP* 100 MG PO SCH (10:51)
[2017-01-06] MEDS: Metoprolol Succinate XL TAB* 25 MG PO SCH (10:52)
[2017-01-06] MEDS: PTO: Sacubitril/Valsartan 24/26(NF) 1 TAB PO SCH (10:52)
[2017-01-06 14:41] VITALS: BP 88/50
--- NOTE | 2017-01-06 22:41 | DS ---
CC: Dr. Garza; Dr. Mora; Dr. Pruitt * DISCHARGE SUMMARY: DATE OF ADMISSION: 01/03/17 DATE OF DISCHARGE: 01/06/17 PRIMARY CARE PROVIDER: Dr. Garza. DISCHARGE DIAGNOSES: 1. Acute systolic congestive heart failure. 2. Urinary retention. 3. Elevated troponin due to demand ischemia. SECONDARY DIAGNOSES: 1. Severe mitral regurgitation. 2. Cardiomyopathy with EF of 10% to 20%. 3. History of chronic systolic congestive heart failure. 4. History of cerebrovascular accident. 5. History of intracranial hemorrhage secondary to AVM remotely. 6. Dyslipidemia. 7. Hypertension. 8. Urethral stricture as well as history of Klebsiella urinary tract infection. The patient finished 7 days of treatment with Bactrim for that. He used to use straight cath prior to the hospital stay and he is going to be discharged with a Marie catheter in place. 9. Dementia. 10. Benign prostatic hypertrophy. 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 MEDICATIONS: At discharge include: 1. Aspirin 81 mg daily. 2. Aricept 5 mg daily. 3. Proscar 5 mg daily. 4. Furosemide 60 mg daily. 5. Metoprolol succinate 12.5 mg daily. 6. Probiotic 1 chewable daily. 7. Crestor 20 mg daily. 8. Entresto 24/26 mg 1 tablet b.i.d. 9. Aldactone 25 mg daily. 10. Flomax 0.4 mg daily. DIET AT DISCHARGE: No added salt. LABORATORY DATA AND STUDIES PERFORMED DURING THE HOSPITAL STAY: Included: On 01/05/17, white blood cell count of 5.7, hemoglobin of 9.8, hematocrit of 30 , and platelets of 180,000. Sodium was 135, potassium 4.2, chloride 98, carbon dioxide 32, BUN 44, creatinine 1.6. The patient's troponin peaked at 0.06 during the hospital stay. Urinalysis obtained at admission showed +1 white blood cells, no bacteria, and + 2 esterase. Cultures of urine were reported to have no growth. Venous Doppler study obtained on 01/03/17 showed no DVT in either legs. Portable chest x-ray obtained on admission showed left pleural effusion and multiple consolidations throughout both lungs. Again, pleural effusion. Testicular ultrasound obtained on 01/03/17. Impression: "No testicular parenchymal mass. No sonographic features of torsion. Please note that partial intermittent torsion may be sonographically normal. Mild diffuse scrotal edema. Bilateral small hydroceles. Bilateral varicoceles." CONSULTATIONS DURING THE HOSPITAL STAY: Included Dr. Pelletier from hospice. HOSPITALIZATION COURSE: Patrick Vela is an 86-year-old male who moved in to be with his daughter 3 weeks ago from [place]. In [place], the patient started having problems with recurrent admissions to the hospital; one of those was noted to be for congestive heart failure. At this point, he was noted to have bilateral pleural effusions and bilateral thoracenteses were performed. That was in [place]. He also was noted to have mitral regurgitation and EF of 10%. Due to becoming more and more frail, he moved in to be with his daughter to [place] 3 weeks ago. During the past 3 weeks, he had seen Dr. Mora and Dr. Pruitt. It was noted that he had urethral stricture that had to be treated by Dr. Pruitt. Nevertheless, he still requires straight catheterizations on a daily basis. It was also noted that the patient has Klebsiella UTI and he was treated with Bactrim beginning on 12/30/16. Dr. Mora spoke with the patient that the patient's mitral regurgitation is severe and his EF is very low. According to the daughter, there were preliminary discussions carried on regarding hospice. The patient came to the hospital on 01/03/17 with complaints of "everything is swollen." Apparently, all of a sudden approximately 12 hours prior to the patient's presentation to the ED, he had generalized scrotal edema, bilateral lower extremity edema. When he came to the hospital, he was noted to have urinary retention and a Marie catheter was placed. The patient responded very well to intravenous diuresis with Lasix. His echocardiogram that was performed a couple of days prior at Dr. Mora's office, he was noted to have severe mitral regurgitation and EF of below 20%. Several discussions were carried on with the patient and the patient's daughter. It was noted that the patient is probably not a good candidate for cardiothoracic surgery, but if they were willing to be evaluated for that, the patient would have to go to another facility to discuss it with cardiothoracic surgeon. The patient and his daughter were not interested in cardiothoracic surgery. Another option that was presented to the patient and his daughter was possibility of evaluation for hospice care. Dr. Pelletier was contacted and after discussion of the case with Dr. Pelletier, it appeared that the patient would be a good candidate and would meet requirements for hospice at home. [facility] evaluated the patient for hospice and they are planning to see the patient 24 hours after today's discharge to potentially sign up the patient for hospice. Nevertheless, during his hospital stay, he finished his course of Bactrim. His Marie is remaining in place and the patient is going to be discharged with a Marie catheter in place. The patient's Lasix was increased to 60 mg daily from 40 mg. The patient also was on a combination of hydrochlorothiazide and Toprol-XL. That is going to be changed, and Toprol-XL is going to be continued and hydrochlorothiazide is going to be stopped. Due to the patient's low EF and mitral regurgitation, the patient's systolic pressures throughout his hospital stay had been in the 90s. By the time of discharge, the patient is comfortable, breathing on 2 L of oxygen nasal cannula, which he used at home previously. He is ambulating with a roller walker and the help of his daughter who is going to be taking care of him at home. PHYSICAL EXAM AT TIME OF DISCHARGE: Blood pressure of 97/58, heart rate of 79 and regular, respiratory rate 24, oxygen saturation 98% on 2 L of oxygen nasal cannula, and temperature 97.6. General: The patient is a very pleasant 86-year -old male who is in no acute distress. The patient is alert and oriented x2. Very hard of hearing. HEENT: Head atraumatic, normocephalic. Eyes: Pupils are equal, reactive to light and accommodation. Oropharynx is clear. Mucosa moist. Neck: Supple. No JVD. No bruits bilaterally. Cardiovascular: Regular rate and rhythm with 2/6 systolic ejection murmur noted on auscultation of the apex. Respiratory: Clear to auscultation bilaterally. Abdomen: Soft, nontender. Bowel sounds are present in all 4 quadrants. Lower Extremities: There is +1 pitting pedal edema bilaterally. Pulses are +2 bilaterally. No clubbing or cyanosis. On neuro evaluation, speech clear. Cranial nerves II through XII grossly intact. Motor strength is 5/5 bilaterally. Please also note that during his hospital stay, he had an episode of 10 beats of ventricular tachycardia that did not recur. He was asymptomatic. During his hospital stay, he also had 1 episode of hematochezia on his bowel movement, most likely due to hemorrhoids. His hemoglobin and hematocrit remained stable throughout his hospital stay. Please note that this is a very short summary of the patient's hospital stay. Please refer to medical records for further details. TIME SPENT: Approximately 45 minutes were spent on the patient's discharge. [id number]/[facility] #: [id number] ERIS
== END 2017-01-06 15:30 | disposition home health service (06) | DRG 291 ==
LOC: ED 18:29 → MEDTELE 21:34
PROVIDERS: ADMIT Hospitalist; ATTEND Internal Medicine
PROC: 0T9B70Z Drainage of Bladder with Drainage Device, Via Natural or Artificial Opening (ICD-10-PCS; principal; 2017-01-03)
DX: I13.0 Hypertensive heart and chronic kidney disease with heart failure and stage 1 through stage 4 chronic kidney disease, or unspecified chronic kidney disease (principal); I50.43 Acute on chronic combined systolic (congestive) and diastolic (congestive) heart failure; Z99.81 Dependence on supplemental oxygen; I24.8 Other forms of acute ischemic heart disease; I25.5 Ischemic cardiomyopathy; N39.0 Urinary tract infection, site not specified; K92.1 Melena; B96.1 Klebsiella pneumoniae [K. pneumoniae] as the cause of diseases classified elsewhere; D64.9 Anemia, unspecified; F03.90 Unspecified dementia, unspecified severity, without behavioral disturbance, psychotic disturbance, mood disturbance, and anxiety; E78.5 Hyperlipidemia, unspecified; I25.10 Atherosclerotic heart disease of native coronary artery without angina pectoris; R74.8 Abnormal levels of other serum enzymes; R40.2412 Glasgow coma scale score 13-15, at arrival to emergency department; I34.0 Nonrheumatic mitral (valve) insufficiency; R33.9 Retention of urine, unspecified; N18.3 Chronic kidney disease, stage 3 (moderate); N40.1 Benign prostatic hyperplasia with lower urinary tract symptoms; H91.10 Presbycusis, unspecified ear; N50.89 Other specified disorders of the male genital organs; N43.3 Hydrocele, unspecified; I86.1 Scrotal varices; Z86.73 Personal history of transient ischemic attack (TIA), and cerebral infarction without residual deficits; I25.2 Old myocardial infarction; Z91.013 Allergy to seafood; Z87.891 Personal history of nicotine dependence; Z79.82 Long term (current) use of aspirin
CPT/HCPCS: 36415; 71010; 76870; 80048; 80053; 81003; 81015; 82550; 82553; 83605; 83690; 83735; 83880; 84443; 84484; 85025; 85027; 85610; 85730; 86140; 87086; 90686; 93005; 93970; 94760; A9270-GY; J1644; J1940

== ENCOUNTER 2017-06-06 14:45 | Emergency (ER) | payer MEDICARE, BC ==
[2017-06-06 16:13] LABS: ABS Basophils 0.1 10^3/ul (0-0.2); ABS Eosinophils 0.2 10^3/ul (0-0.6); ABS Lymphocytes 1.4 10^3/ul (1.0-4.8); ABS Monocytes 0.8 10^3/ul (0-0.8); ABS Neutrophils 5.6 10^3/ul (1.5-7.7); ABS Nucleated RBC 0 10^3/ul; Hematocrit 24 % (42-52); Hemoglobin 7.9 g/dl (14.0-18.0); Lymphocyte % 17.1 % (25-47); Mean Corpuscular HGB Conc 33 g/dl (31-36); Mean Corpuscular Hemoglobin 30 pg (27-31); Mean Corpuscular Volume 92 fL (80-94); Mean Platelet Volume 9 um3 (7.4-10.4); Nucleated Red Blood Cells % 0; Platelet Count 197 10^3/ul (150-450); Red Blood Count 2.62 10^6/ul (4.0-5.4); Red Cell Distribution Width 14 % (10.5-15); White Blood Count 7.9 10^3/ul (3.5-10.8)
[2017-06-06 16:19] LABS: INR 0.93 (0.77-1.02)
[2017-06-06 16:29] LABS: EGFR Non-African American 60.4 (>60)
[2017-06-06] MEDS ORDERED: Ciprofloxacin TAB* 500 MG PO ONE (20:37)
[2017-06-06 21:27] VITALS: BP 112/57
--- NOTE | 2017-06-07 11:18 | ED ---
Alvarez Schmitt Jason, scribed for Artemio Coyne MD on 06/06/17 at 1518 . GI/ HPI - HPI Summary HPI Summary: This patient is an 86 year old M presenting to [facility] accompanied by daughter with a chief complaint of BM since 1 week ago. The patient states last week he began experiencing BM without control, which included loose black stool. Today he has had a BM approx 4 times. Patient has Hx of ulcer and GI bleed. The patient rates the pain 0/10 in severity. Symptoms aggravated by nothing. Symptoms alleviated by nothing. - History of Current Complaint Chief Complaint: EDGIBleed Time Seen by Provider: 06/06/17 15:06 Stated Complaint: DIARRHEA-BLACK IN COLOR Hx Obtained From: Patient Onset/Duration: Started Weeks Ago - 1 week ago Timing: Intermittent Vaginal Bleeding Description: Brown Pain Intensity: 0 Associated Signs and Symptoms: Positive: Black Tarry Stool, Other: - loose stool Aggravating Factor(s): Nothing Alleviating Factor(s): Nothing - Additional Pertinent History Primary Care Physician: CHIVO - Allergy/Home Medications Allergies/Adverse Reactions: Allergies Allergy/AdvReac Type Severity Reaction Status Date / Time shellfish derived Allergy Hives Verified 06/06/17 16:24 Home Medications: Home Medications Digoxin TAB* [Lanoxin TAB*] 0.125 mg PO DAILY 06/06/17 [History Confirmed ] Donepezil TAB* [Aricept 5 MG TAB*] 5 mg PO DAILY 06/06/17 [History Confirmed 02/13] Spironolactone TAB* [Aldactone TAB*] 25 mg PO DAILY 06/06/17 [History Confirmed 06/06/17] PMH/Surg Hx/FS Hx/Imm Hx Previously Healthy: No Cardiovascular History: Reports: Hx Cardiac Arrest, Hx Congestive Heart Failure , Hx Coronary Artery Disease, Hx Hypercholesterolemia, Hx Hypertension Respiratory History: Reports: Other Respiratory Problems/Disorders - HX OF PLEURAL EFFUSION GI History: Reports: Hx Ulcer - stomach History: Reports: Hx Benign Prostatic Hyperplasia, Other Problems/ Disorders - urethral stricture Sensory History: Reports: Hx Cataracts, Hx Contacts or Glasses Denies: Hx Hearing Aid Opthamlomology History: Reports: Hx Cataracts, Hx Contacts or Glasses Neurological History: Reports: Hx Dementia Psychiatric History: Reports: Other Psychiatric Issues/Disorders - dementia - Surgical History Surgery Procedure, Year, and Place: Brain AVM SX Infectious Disease History: No Infectious Disease History: Denies: Traveled Outside the [place] in Last 30 Days Comment Only: History Other Infectious Disease - recently diagnosed bladder infection - Family History Known Family History: Negative: Diabetes - Social History Alcohol Use: None Substance Use Type: Reports: None Smoking Status (MU): Unknown if Ever Smoked Review of Systems Negative: Fever Positive: Diarrhea - loose, black stool All Other Systems Reviewed And Are Negative: Yes Physical Exam - Summary Physical Exam Summary: Appearance: The patient is well-nourished in no acute distress and in no acute pain. Skin: The skin is warm and dry and skin color reflects adequate perfusion. HEENT: ~The head is normocephalic and atraumatic. The pupils are equal and reactive. The conjunctivae are clear and without drainage. ~Nares are patent and without drainage. Mouth reveals moist mucous membranes and the throat is without erythema and exudate. The external ears are intact. The ear canals are patent and without drainage. The tympanic membranes are intact. Neck: the neck is supple with full range of motion and non-tender. There are no carotid bruits. ~There is no neck vein distension. Respiratory: Chest is non-tender. ~Lungs are clear to auscultation and breath sounds are symmetrical and equal. Cardiovascular: Heart is regular rate and rhythm. ~There is no murmur or rub auscultated. ~~There is no peripheral edema and pulses are symmetrical and equal. Abdomen: The abdomen is soft and non-tender. ~There are normal bowel sounds heard in all four quadrants and there is no organomegaly palpated. Musculoskeletal: There is no back tenderness noted. ~Extremities are non-tender with full range of motion. ~There is good capillary refill. There is no peripheral edema or calf tenderness elicited. Neurological: Patient is alert and oriented to person, place and time. ~The patient has symmetrical motor strength in all four extremities. ~Cranial nerves are grossly intact. Deep tendon reflexes are symmetrical and equal in all four extremities. Psychiatric: The patient has an appropriate affect and does not exhibit any anxiety or depression. Triage Information Reviewed: Yes Vital Signs On Initial Exam: Initial Vitals Temp Pulse Resp BP Pulse Ox 97.6 F 66 16 168/86 100 06/06/17 14:47 06/06/17 14:47 06/06/17 14:47 06/06/17 14:47 06/06/17 14:47 Vital Signs Reviewed: Yes Diagnostics - Vital Signs Vital Signs Temp Pulse Resp BP Pulse Ox 06/06/17 14:47 97.6 F 66 16 168/86 100 - Laboratory Lab Results: Lab Results 06/06/17 06/06/17 06/06/17 Range/Units 16:00 16:00 16:00 WBC 7.9 (3.5-10.8) 10^3/ul RBC 2.62 L (4.0-5.4) 10^6/ul Hgb 7.9 L (14.0-18.0) g/dl Hct 24 L (42-52) % MCV 92 (80-94) fL MCH 30 (27-31) pg MCHC 33 (31-36) g/dl RDW 14 (10.5-15) % Plt Count 197 (150-450) 10^3/ul MPV 9 (7.4-10.4) um3 Neut % (Auto) 70.2 (38-83) % Lymph % (Auto) 17.1 L (25-47) % [place] % (Auto) 10.0 H (0-7) % Eos % (Auto) 2.0 (0-6) % Baso % (Auto) 0.7 (0-2) % Absolute Neuts (auto) 5.6 (1.5-7.7) 10^3/ul Absolute Lymphs (auto) 1.4 (1.0-4.8) 10^3/ul Absolute Monos (auto) 0.8 (0-0.8) 10^3/ul Absolute Eos (auto) 0.2 (0-0.6) 10^3/ul Absolute Basos (auto) 0.1 (0-0.2) 10^3/ul Absolute Nucleated RBC 0 10^3/ul Nucleated RBC % 0 INR (Anticoag Therapy) 0.93 (0.77-1.02) Sodium 136 (133-145) mmol/L Potassium 4.7 (3.5-5.0) mmol/L Chloride 101 (101-111) mmol/L Carbon Dioxide 33 H (22-32) mmol/L Anion Gap 2 (2-11) mmol/L BUN 27 H (6-24) mg/dL Creatinine 1.15 (0.67-1.17) mg/dL Est GFR ( Amer) 77.7 (>60) Est GFR (Non-Af Amer) 60.4 (>60) BUN/Creatinine Ratio 23.5 H (8-20) Glucose 87 (70-100) mg/dL Calcium 8.9 (8.6-10.3) mg/dL Total Bilirubin 0.30 (0.2-1.0) mg/dL AST 18 (13-39) U/L ALT 11 (7-52) U/L Alkaline Phosphatase 73 (34-104) U/L C-Reactive Protein 4.62 (< 5.00) mg/L Total Protein 6.7 (6.4-8.9) g/dL Albumin 3.4 (3.2-5.2) g/dL Globulin 3.3 (2-4) g/dL Albumin/Globulin Ratio 1.0 (1-3) Result Diagrams: 06/06/17 16:00 06/06/17 16:00 Lab Statement: Any lab studies that have been ordered have been reviewed, and results considered in the medical decision making process. GIGU Course/Dx - Course Course Of Treatment: Mr. Vela was brought in by his daughter with the concern that he may be losing too much blood. He has had black stools that are loose and that he can't control for several weeks. They have tried to take away andything that would make the stools black. They stopped his Fe supplements and all blood thinners. He got started on peptobismol which helped the stools but when she found out it contained ASA, she stopped it as he has a Hx of PUD. That was two days ago and the loose stools have returned. He was found to be slightly more anemic than usual and the stool had blood and WBCs in it. It is possible that there is an infectious contribution here and I will give him a course of Cipro. He will need to have his H&H followed. - Diagnoses Provider Diagnoses: Hematochezia Discharge - Discharge Plan Condition: Stable Disposition: HOME Prescriptions: Ciprofloxacin TAB* [Cipro Tab*] 500 mg PO BID #20 tab Ciprofloxacin TAB* [Cipro Tab*] 500 mg PO BID #20 tab Patient Education Materials: Rectal Bleeding (ED), Acute Diarrhea (ED) Referrals: Daniella Garza MD [Primary Care Provider] - 1 Week Additional Instructions: Follow up with Dr. Garza this week. The documentation as recorded by the Alvarez lynch Jason accurately reflects the service I personally performed and the decisions made by me, Artemio Coyne MD.
--- NOTE | 2017-06-08 09:19 | PN ---
Progress Note - Progress Note Date of Service: 06/06/17 Note: stool culture results negative for shiga, negative for c diff, positive for stool occult blood and positive immunoassay. patient was placed on cipro at d/c. no further action required at this time.
== END 2017-06-06 21:27 | disposition home or self-care (01) ==
LOC: ED 14:45
DX: K92.1 Melena (principal); Z87.11 Personal history of peptic ulcer disease
CPT/HCPCS: 36415; 80053; 82272; 83630; 85025; 85610; 86140; 87045; 87046; 87077; 87493; 87899; 99283; A9270-GY

== ENCOUNTER 2018-01-04 11:14 | Emergency (ER) | payer MEDICARE, OTHER ==
--- NOTE | 2018-01-04 12:27 | RAD ---
HISTORY: CHF COMPARISONS: January 03, 2017 VIEWS: 1: frontal AP view of the chest at 12:22 PM FINDINGS: LINES AND TUBES: None. CARDIOMEDIASTINAL SILHOUETTE: The cardiac silhouette is enlarged. The cardiomediastinal silhouette is otherwise normal for portable technique. PLEURA: The costophrenic angles are sharp. No pleural abnormalities are noted. LUNG PARENCHYMA: The lungs are clear. ABDOMEN: The upper abdomen is clear. There is no subphrenic gas. BONES AND SOFT TISSUES: No bone or soft tissue abnormalities are noted. IMPRESSION: CARDIOMEGALY
[2018-01-04 12:33] LABS: ABS Basophils 0 10^3/ul (0-0.2); ABS Eosinophils 0.1 10^3/ul (0-0.6); ABS Lymphocytes 0.9 10^3/ul (1.0-4.8); ABS Monocytes 0.5 10^3/ul (0-0.8); ABS Neutrophils 4.1 10^3/ul (1.5-7.7); ABS Nucleated RBC 0 10^3/ul; Eosinophil % 2.4 % (0-6); Hematocrit 26 % (42-52); Hemoglobin 8.2 g/dl (14.0-18.0); Lymphocyte % 16.4 % (25-47); Mean Corpuscular HGB Conc 32 g/dl (31-36); Mean Corpuscular Hemoglobin 27 pg (27-31); Mean Corpuscular Volume 85 fL (80-94); Mean Platelet Volume 9.2 um3 (7.4-10.4); Nucleated Red Blood Cells % 0.1; Platelet Count 197 10^3/ul (150-450); Red Blood Count 3.03 10^6/ul (4.00-5.40); Red Cell Distribution Width 16 % (10.5-15); White Blood Count 5.6 10^3/ul (3.5-10.8)
[2018-01-04 12:34] LABS: INR 0.9 (0.77-1.02)
[2018-01-04 12:39] LABS: Urine Appearance Cloudy; Urine Blood 1+ (Negative); Urine Color Yellow; Urine Ketones Negative (Negative); Urine Protein Negative (Negative); Urine Red Blood Cell 1+(3-5/hpf) (Absent); Urine Specific Gravity 1.013 (1.010-1.030); Urine Urobilinogen Negative (Negative); Urine White Blood Cell 3+(>20/hpf) (Absent)
[2018-01-04 12:41] LABS: EGFR Non-African American 39.5 (>60)
[2018-01-04 14:35] VITALS: BP 134/65
--- NOTE | 2018-01-04 16:22 | ED ---
GI/ HPI - HPI Summary HPI Summary: Patient is an 87-year-old male presenting to the ED with his daughter. Daughter is concerned over patient's recent diarrhea. She states he has diarrhea at baseline, but the diarrhea returned as very dark today. She is worried about a GI bleed. Patient states he feels well and is unsure why he is in the hospital. Daughter also states she wanted to bring him because she wanted to check into the hospital as well for shops of breath. He endorses no symptoms including abdominal or back pain, urinary symptoms, confusion, nausea, vomiting. He does endorse diarrhea at baseline just proximal he 1-2 per day. He does not notice it these are dark as he does not check. He states he has been feeling well, denies any sick contacts. Denies any cough, congestion, chest pain or shortness of breath. He does have a history of CHF but this is been well-controlled. Previous injection fraction of 15% and was currently on hospice, however he significantly improved so he was taken off hospice and comfort care. Daughter states over the past 6 weeks he has remained very free so he has had improvement with stools. However, she endorses intermittent melena over 1 year time period patient denies any fevers, sweats, chills. - History of Current Complaint Chief Complaint: EDGIBleed Time Seen by Provider: 01/04/18 11:52 Stated Complaint: BLOOD IN STOOL/CONFUSIONC Hx Obtained From: Patient Onset/Duration: Started Hours Ago Timing: Constant Severity: Mild Current Severity: None Pain Intensity: 0 Aggravating Factor(s): Nothing Alleviating Factor(s): Nothing - Additional Pertinent History Primary Care Physician: [id number] - Allergy/Home Medications Allergies/Adverse Reactions: Allergies Allergy/AdvReac Type Severity Reaction Status Date / Time shellfish derived Allergy Hives Verified 01/04/18 11:39 Home Medications: Home Medications Digoxin TAB* [Lanoxin TAB*] 0.125 mg PO MOWEFR 01/04/18 [History Confirmed 01/04] Diphenoxylat/Atrop 2.5-0.025M* [Lomotil TAB*] 1 - 2 tab PO TID PRN MDD 6 tabs [History Confirmed 01/04/18] Metoprolol Succinate XL TAB* [Toprol XL TAB*] 50 mg PO DAILY 01/04/18 [History Confirmed 01/04/18] Rosuvastatin (NF) [Crestor (NF)] 5 mg PO BEDTIME 01/04/18 [History Confirmed 12/14] Sacubitril/Valsartan (NF) [Entresto (NF)] 1 tab PO BID 01/04/18 [ History Confirmed 01/04/18] Sertraline* [Zoloft*] 25 mg PO DAILY 01/04/18 [History Confirmed 01/04/18] Spironolactone TAB* [Aldactone TAB*] 25 mg PO DAILY 01/04/18 [History Confirmed 01/04/18] PMH/Surg Hx/FS Hx/Imm Hx Previously Healthy: Yes Cardiovascular History: Reports: Hx Cardiac Arrest, Hx Congestive Heart Failure , Hx Coronary Artery Disease, Hx Hypercholesterolemia, Hx Hypertension Respiratory History: Reports: Other Respiratory Problems/Disorders - HX OF PLEURAL EFFUSION GI History: Reports: Hx Ulcer - stomach History: Reports: Hx Benign Prostatic Hyperplasia, Other Problems/ Disorders - urethral stricture Sensory History: Reports: Hx Cataracts, Hx Contacts or Glasses Denies: Hx Hearing Aid Opthamlomology History: Reports: Hx Cataracts, Hx Contacts or Glasses Neurological History: Reports: Hx Dementia Psychiatric History: Reports: Other Psychiatric Issues/Disorders - dementia - Surgical History Surgery Procedure, Year, and Place: Brain AVM SX - Immunization History Hx Pertussis Vaccination: No Immunizations Up to Date: Yes Infectious Disease History: No Infectious Disease History: Denies: Traveled Outside the [place] in Last 30 Days Comment Only: History Other Infectious Disease - recently diagnosed bladder infection - Family History Known Family History: Negative: Diabetes - Social History Occupation: Unemployed Lives: With Family Alcohol Use: None Hx Substance Use: No Substance Use Type: Reports: None Hx Tobacco Use: No Smoking Status (MU): Unknown if Ever Smoked Review of Systems Constitutional: Negative Negative: Fever, Chills, Fatigue, Skin Diaphoresis Negative: Palpitations, Chest Pain Negative: Shortness Of Breath, Cough Positive: Diarrhea Genitourinary: Negative Positive: no symptoms reported, see HPI Negative: Arthralgia, Myalgia Skin: Negative All Other Systems Reviewed And Are Negative: Yes Physical Exam Triage Information Reviewed: Yes Vital Signs On Initial Exam: Initial Vitals Temp Pulse Resp BP Pulse Ox 97.8 F 75 16 150/62 97 10/09/18 11:30 01/04/18 11:30 01/04/18 11:30 01/04/18 11:30 01/04/18 11:30 Vital Signs Reviewed: Yes Appearance: Positive: Well-Appearing, Well-Nourished Skin: Positive: Warm, Skin Color Reflects Adequate Perfusion Head/Face: Positive: Normal Head/Face Inspection Eyes: Positive: EOMI, BRIGIDO, Conjunctiva Clear Neck: Positive: Supple, No Lymphadenopathy Respiratory/Lung Sounds: Positive: Clear to Auscultation, Breath Sounds Present Cardiovascular: Positive: RRR, Pulses are Symmetrical in both Upper and Lower Extremities Bowel Sounds: Positive: Present Musculoskeletal: Positive: Strength/ROM Intact Neurological: Positive: Alert, Oriented to Person Place, Time, Speech Normal Psychiatric: Positive: Normal, Affect/Mood Appropriate AVPU Assessment: Alert Diagnostics - Vital Signs Vital Signs Temp Pulse Resp BP Pulse Ox 01/04/18 14:41 98.3 F 69 22 134/65 100 01/04/18 14:32 69 25 134/65 100 01/04/18 14:00 70 18 98 01/04/18 13:00 73 15 98 01/04/18 12:02 71 5 136/61 100 01/04/18 12:00 72 12 99 01/04/18 11:59 6 01/04/18 11:30 97.8 F 75 16 150/62 97 - Laboratory Lab Results: Lab Results 01/04/18 01/04/18 01/04/18 Range/Units 12:13 12:13 12:13 WBC 5.6 (3.5-10.8) 10^3/ul RBC 3.03 L (4.00-5.40) 10^6/ul Hgb 8.2 L (14.0-18.0) g/dl Hct 26 L (42-52) % MCV 85 (80-94) fL MCH 27 (27-31) pg MCHC 32 (31-36) g/dl RDW 16 H (10.5-15) % Plt Count 197 (150-450) 10^3/ul MPV 9.2 (7.4-10.4) um3 Neut % (Auto) 72.2 (38-83) % Lymph % (Auto) 16.4 L (25-47) % [place] % (Auto) 8.5 H (0-7) % Eos % (Auto) 2.4 (0-6) % Baso % (Auto) 0.5 (0-2) % Absolute Neuts (auto) 4.1 (1.5-7.7) 10^3/ul Absolute Lymphs (auto) 0.9 L (1.0-4.8) 10^3/ul Absolute Monos (auto) 0.5 (0-0.8) 10^3/ul Absolute Eos (auto) 0.1 (0-0.6) 10^3/ul Absolute Basos (auto) 0 (0-0.2) 10^3/ul Absolute Nucleated RBC 0 10^3/ul Nucleated RBC % 0.1 INR (Anticoag Therapy) 0.90 (0.77-1.02) APTT 29.4 (26.0-36.3) seconds Sodium 138 (135-145) mmol/L Potassium 4.7 (3.5-5.0) mmol/L Chloride 106 (101-111) mmol/L Carbon Dioxide 29 (22-32) mmol/L Anion Gap 3 (2-11) mmol/L BUN 31 H (6-24) mg/dL Creatinine 1.66 H (0.67-1.17) mg/dL Est GFR ( Amer) 47.8 (>60) Est GFR (Non-Af Amer) 39.5 (>60) BUN/Creatinine Ratio 18.7 (8-20) Glucose 110 H (70-100) mg/dL Calcium 8.9 (8.6-10.3) mg/dL Total Bilirubin 0.40 (0.2-1.0) mg/dL AST 16 (13-39) U/L ALT 8 (7-52) U/L Alkaline Phosphatase 89 (34-104) U/L Total Creatine Kinase 64 (10-223) U/L Troponin I 0.03 (<0.04) ng/mL B-Natriuretic Peptide ( - 100) pg/mL Total Protein 6.9 (6.4-8.9) g/dL Albumin 3.7 (3.2-5.2) g/dL Globulin 3.2 (2-4) g/dL Albumin/Globulin Ratio 1.2 (1-3) Urine Color Urine Appearance Urine pH (5-9) Ur Specific [place] (1.010-1.030) Urine Protein (Negative) Urine Ketones (Negative) Urine Blood (Negative) Urine Nitrate (Negative) Urine Bilirubin (Negative) Urine Urobilinogen (Negative) Ur Leukocyte Esterase (Negative) Urine WBC (Auto) (Absent) Urine RBC (Auto) (Absent) Ur Squamous Epith Cells (Absent) Amorphous Crystals (Absent) Urine Bacteria (Absent) Urine Glucose (Negative) 01/04/18 01/04/18 Range/Units 12:13 12:28 WBC (3.5-10.8) 10^3/ul RBC (4.00-5.40) 10^6/ul Hgb (14.0-18.0) g/dl Hct (42-52) % MCV (80-94) fL MCH (27-31) pg MCHC (31-36) g/dl RDW (10.5-15) % Plt Count (150-450) 10^3/ul MPV (7.4-10.4) um3 Neut % (Auto) (38-83) % Lymph % (Auto) (25-47) % [place] % (Auto) (0-7) % Eos % (Auto) (0-6) % Baso % (Auto) (0-2) % Absolute Neuts (auto) (1.5-7.7) 10^3/ul Absolute Lymphs (auto) (1.0-4.8) 10^3/ul Absolute Monos (auto) (0-0.8) 10^3/ul Absolute Eos (auto) (0-0.6) 10^3/ul Absolute Basos (auto) (0-0.2) 10^3/ul Absolute Nucleated RBC 10^3/ul Nucleated RBC % INR (Anticoag Therapy) (0.77-1.02) APTT (26.0-36.3) seconds Sodium (135-145) mmol/L Potassium (3.5-5.0) mmol/L Chloride (101-111) mmol/L Carbon Dioxide (22-32) mmol/L Anion Gap (2-11) mmol/L BUN (6-24) mg/dL Creatinine (0.67-1.17) mg/dL Est GFR ( Amer) (>60) Est GFR (Non-Af Amer) (>60) BUN/Creatinine Ratio (8-20) Glucose (70-100) mg/dL Calcium (8.6-10.3) mg/dL Total Bilirubin (0.2-1.0) mg/dL AST (13-39) U/L ALT (7-52) U/L Alkaline Phosphatase (34-104) U/L Total Creatine Kinase (10-223) U/L Troponin I (<0.04) ng/mL B-Natriuretic Peptide 305 H ( - 100) pg/mL Total Protein (6.4-8.9) g/dL Albumin (3.2-5.2) g/dL Globulin (2-4) g/dL Albumin/Globulin Ratio (1-3) Urine Color Yellow Urine Appearance Cloudy Urine pH 5.0 (5-9) Ur Specific [place] 1.013 (1.010-1.030) Urine Protein Negative (Negative) Urine Ketones Negative (Negative) Urine Blood 1+ A (Negative) Urine Nitrate Positive A (Negative) Urine Bilirubin Negative (Negative) Urine Urobilinogen Negative (Negative) Ur Leukocyte Esterase 3+ A (Negative) Urine WBC (Auto) 3+(>20/hpf) A (Absent) Urine RBC (Auto) 1+(3-5/hpf) A (Absent) Ur Squamous Epith Cells Present A (Absent) Amorphous Crystals Present A (Absent) Urine Bacteria Absent (Absent) Urine Glucose Negative (Negative) Result Diagrams: 01/04/18 12:13 01/04/18 12:13 Lab Statement: Any lab studies that have been ordered have been reviewed, and results considered in the medical decision making process. GIGU Course/Dx - Course Course Of Treatment: Patient is evaluated for possibly melena for darkened stool this morning. He has diarrhea at baseline and has had 2 separate stools today. The diarrhea has a dark color, with no orange tint to it and non- malodorous. No history of C. difficile. Ejection fraction 15% and CHF is well controlled with his at home medications. Daughter is at bedside stating she is concerned over worsening melena as patient has anemia. Patient states he is feeling well. Labs obtained which show an H&H of 8 and 26 which is not decreased from last visit. Also BNP significant at 305 which has been much improved compared to his last visits. Stool Hemoccult obtained which is negative for any blood. Patient states he feels well. He is hemodynamically stable. He will be discharged home with a diagnosis of chronic diarrhea and I' ve encouraged him to continue his iron supplements. He will follow up with his PCP in 2-3 days. - Diagnoses Provider Diagnoses: Chronic diarrhea Discharge - Sign-Out/Discharge Documenting (check all that apply): Patient Departure - Discharge Plan Condition: Stable Disposition: HOME Prescriptions: Cephalexin CAP* [Keflex CAP*] 500 mg PO TID #21 cap Patient Education Materials: Chronic Diarrhea (ED) Referrals: Daniella Garza MD [Primary Care Provider] - Additional Instructions: Please follow up with your PCP in 2-3 days for a recheck of your symptoms Iron supplement will help - Billing Disposition and Condition Condition: STABLE Disposition: Home
== END 2018-01-04 14:41 | disposition home or self-care (01) ==
LOC: ED 11:14
DX: K52.9 Noninfective gastroenteritis and colitis, unspecified (principal); I25.10 Atherosclerotic heart disease of native coronary artery without angina pectoris; I11.0 Hypertensive heart disease with heart failure; Z86.74 Personal history of sudden cardiac arrest; E78.00 Pure hypercholesterolemia, unspecified; F03.90 Unspecified dementia, unspecified severity, without behavioral disturbance, psychotic disturbance, mood disturbance, and anxiety; Z91.013 Allergy to seafood
CPT/HCPCS: 36415; 71045; 80053; 81003; 81015; 82270; 82550; 83880; 84484; 85025; 85610; 85730; 87077; 87086; 87186; 93005; 99283

== ENCOUNTER 2018-05-02 07:37 | Emergency (ER) | payer MEDICARE, BC ==
[2018-05-02 07:42] VITALS: BP 123/52
--- OUTSIDE RECORDS SUMMARY | 2018-05-02 08:02 | XMS REPORT | Continuity of Care Document ---
:1930 External Reference #:[id number] Author Name MalhotraElsie dimas Care Team Providers Name Role Phone Daniella Garza MD Primary Care Physician Unavailable Payers Type Date Identification Numbers Payment Provider Subscriber Policy Number: [id number] Medicare Eugene Denmark PayID: [id number] [address] [place] [address] Expires: 2017 Policy Number: [id number] Medicare Eugene Denmark PayID: [id number] [address] [place] [address] Policy Number: [id number] [facility] PayID: [id number] [address] [place] [address] Expires: 2016 PayID: [id number] Medicare Eugene Denmark [address] [place] [address] Expires: 2016 PayID: [id number] Blue Shield o [facility] [address] [address] [place] [address] Advance Directives Type Date Description Status Comment [facility] 01/18/2017 [facility] Current and Verified Problems Date Description Provider Status Onset: 12/22/2016 Cardiomyopathy Ervin Villareal NP Active Onset: 12/22/2016 Heart failure Ervin Villareal NP Active Note: EF 10% Onset: 12/22/2016 H/O: urethral stricture Ervin Villareal NP Active Onset: 12/22/2016 Cerebral arteriovenous malformation Ervin Villareal NP Active Note: Repair 1986 Onset: 12/22/2016 Dementia Ervin Villareal NP Active Onset: 12/22/2016 Depressive disorder Ervin Villareal NP Active Onset: 12/22/2016 Benign prostatic hyperplasia Ervin Villareal NP Active Family History Date Family Member(s) Problem(s) Comments Father MA Father due to MA () - at 58 yo Mother due to Natural Causes () - at 69 yo Siblings 3 Social History Type Date Description Comments Sex Unknown Marital Status 1998 Lives With Family dtr Sandra, and son-in-law 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 Does stability exercises per prior PT teaching. Allergies, Adverse Reactions, Alerts Date Description Reaction Status Severity Comments 12/10/2016 NKDA Active 12/21/2016 Shrimp & Scallops hives Active Medications Medication Date Status Form Strength Qnty SIG Indications Ordering Provider Ferrousul 04/12/ Active Tablets 325(65Fe) 180tab 1 tab by Raudel 2019 mg s mouth F. Mauser, twice a M.D. day with some citrus juice but not with food. Rosuvastatin 08/18/ Active Tablets 5mg 90tabs 1 by mouth Raudel Calcium 2017 every F. Mauser, night at M.D. bedtime Sertraline HCL 05/11/ Active Tablets 25mg 60tabs Take Two 2017 Tablets Cotton, By Mouth M.D. Every Day Digoxin 04/15/ Active Tablets 125mcg 30tabs 1 by mouth Raudel 2018 wednesday, FSintia Mora, wednesday, M.D. wednesday only Metoprolol 12/28/ Active Tablets ER 25mg 90tabs /2 by Raudel Succinate ER 2016 24HR mouth F. Mauser, twice M.D. daily Tamsulosin HCL 12/22/ Active Capsules 0.4mg 90caps 1 by mouth 2016 every day Cotton, M.D. Donepezil HCL 12/22/ Active Tablets 5mg 30tabs take one 2016 tablet by Cotton, mouth M.D. every day Finasteride 12/22/ Active Tablets 5mg 90tabs Take One 2016 Tablet By Cotton, Mouth M.D. Every Day Jobst Active 12/10/ Active Misc 2Pair 1 pair R60.9 Raudel 15-20MMHG/Knee 2017 daily to Sebastian Mora, High/Closed legs. M.D. Toe/Medium please size patiennt. Aldactone 12/10/ Active Tablets 25mg 90tabs 1 tab by I42.9 Raudel 2016 mouth Sebastian Mora, every day M.D. Oxygen 12/10/ Active Misc 2L 1units please use Raudel 2016 o2 at Sebastian Mora, 2l/min nc M.D. prn resp c/o Entresto / Active Tablets 24-26mg 60tabs 1 tablet Raudel tablet by Sebastian Mora, mouth M.D. twice a day Vitamin B-12 / Active Tablets 1000mcg 1 by mouth Unknown 0000 every day Furosemide / Active Tablets 40mg 135tab 1 tab by Daniella s mouth Greg, wednesday M.D. and wednesday Diphenoxylate- / Active Tablets 2.5-0.025m 180tab take 1 to Daniella Atropine 0000 g s 2 by mouth Cotton, three M.D. times a day as needed for diarrhea; maximum daily dose=6 Lactaid / Active Tablets 3000Unit 2 tabs Unknown 0000 with each meal Digestive / Active Chewtabs Unknown Advantage 0000 Probiotic Gummies Lomotil 02/19/ Hx Tablets 2.5-0.025m 120tab take one Daniella 2016 - g s tablet by Greg 07/06/ mouth M.D. 2017 every 6 hours as needed; maximum daily dose=4 Imodium A-D 02/15/ Hx Liquid 1mg/7.5ML As Daniella 2016 - directed. Greg 02/19/ M.D. 2016 Rosuvastatin 12/22/ Hx Tablets 20mg 90tabs take one Ervin Calcium 2016 - tablet by KRISSY Villareal 08/18/ mouth 2018 every day hold as of 5.10.18 Furosemide / Hx Tablets 40mg 1 by mouth Unknown 0000 - every day 01/07/ take extra 2017 dose at 2 pm on 9.15, 9.16 Metoprolol / Hx Tablets 25mg 1/2 by Unknown Tartrate 0000 - mouth 12/28/ twice a 2017 day Aspirin / Hx Tablets DR 81mg 1 by mouth Unknown 0000 - every day 2017 Digestive / Hx Capsules daily Unknown Advantage 0000 - 2016 Iron / Hx Tablets 325(65Fe) 1 by mouth Unknown 0000 - mg every day 2017 Immunizations Description No Information Available Vital Signs Date Vital Result Comment 04/15/2018 2:46pm Height 73 inches 6'1" Weight 176.00 lb Heart Rate 66 /min BP Systolic Sitting 99 mmHg BP Diastolic Sitting 40 mmHg O2 % BldC Oximetry 95 % BMI (Body Mass Index) 23.2 kg/m2 04/14/2018 2:18pm Height 73 inches 6'1" Weight 176.25 lb with shoes Heart Rate 80 /min left radial, regular BP Systolic Sitting 120 mmHg left arm BP Diastolic Sitting 50 mmHg left arm BMI (Body Mass Index) 23.3 kg/m2 Ejection Fraction 25-30% echo 03/24/18 03/01/2018 2:22pm Height 73 inches 6'1" Weight 174.00 lb Heart Rate 60 /min radial BP Systolic 118 mmHg Lue reg cuff BP Diastolic 58 mmHg Lue reg cuff BMI (Body Mass Index) 23.0 kg/m2 Ejection Fraction 20-25% Echo 04/08/17 11/19/2017 1:37pm Height 73 inches 6'1" Weight 176.00 lb Heart Rate 62 /min BP Systolic Sitting 105 mmHg BP Diastolic Sitting 41 mmHg Body Temperature 98.6 F O2 % BldC Oximetry 99 % pt on 2liters at this time BMI (Body Mass Index) 23.2 kg/m2 09/10/2017 2:17pm Height 73 inches 6'1" Heart Rate 62 /min BP Systolic Sitting 92 mmHg lue reg cuff BP Diastolic Sitting 44 mmHg lue reg cuff Respiratory Rate 18 /min Ejection Fraction 20-25% 06/08/2017 echo 08/05/2017 8:50am Height 73 inches 6'1" Weight 178.00 lb per pt BP Systolic Sitting 110 mmHg Lue BP Diastolic Sitting 64 mmHg Lue Respiratory Rate 16 /min BMI (Body Mass Index) 23.5 kg/m2 Ejection Fraction 20-25% as of 03/2017 echo 06/14/2017 4:17pm Weight 165.00 lb Heart Rate 63 /min BP Systolic Sitting 120 mmHg BP Diastolic Sitting 58 mmHg Body Temperature 97.1 F O2 % BldC Oximetry 98 % 04/12/2017 2:44pm Height 73 inches 6'1" Weight 156.75 lb BP Systolic 100 mmHg BP Diastolic 45 mmHg Body Temperature 97.6 F BMI (Body Mass Index) 20.7 kg/m2 04/05/2017 10:24am Height 73 inches 6'1" Weight 158.00 lb w/shoes Heart Rate 90 /min BP Systolic Sitting 120 mmHg LA reg cuff BP Diastolic Sitting 60 mmHg LA reg cuff O2 % BldC Oximetry 100 % 2 L BMI (Body Mass Index) 20.8 kg/m2 Ejection Fraction < 20% Echo 12/31/16 02/23/2017 11:44am Height 73 inches 6'1" Heart Rate 82 /min BP Systolic Sitting 98 mmHg Ra reg cuff BP Diastolic Sitting 52 mmHg Ra reg cuff Ejection Fraction 20% echo 12/31/16 01/18/2017 11:26am Height 73 inches 6'1" Weight 159.25 lb Heart Rate 78 /min BP Systolic 114 mmHg BP Diastolic 60 mmHg Body Temperature 96.5 F O2 % BldC Oximetry 97 % BMI (Body Mass Index) 21.0 kg/m2 12/28/2016 11:04am Height 73 inches 6'1" Weight 174.00 lb with shoes Heart Rate 90 /min BP Systolic Sitting 110 mmHg rue reg cuff BP Diastolic Sitting 62 mmHg rue reg cuff BMI (Body Mass Index) 23.0 kg/m2 Ejection Fraction 10% echo 11/03/16 12/21/2016 1:12pm Height 73 inches 6'1" Weight 182.00 lb Heart Rate 93 /min BP Systolic Sitting 120 mmHg BP Diastolic Sitting 60 mmHg Respiratory Rate 18 /min O2 % BldC Oximetry 95 % BMI (Body Mass Index) 24.0 kg/m2 12/10/2016 1:50pm Height 73 inches 6'1" Weight 191.25 lb with shoes Heart Rate 86 /min BP Systolic Sitting 98 mmHg Ra reg cuff BP Diastolic Sitting 62 mmHg Ra reg cuff O2 % BldC Oximetry 95 % room air, 86% s/p 30 feet ambulation BMI (Body Mass Index) 25.2 kg/m2 Results Test Date Facility Test Result H/L Range Note Lipid Profile 04/14/2018 [facility] Triglycerides 83 mg/dL 1 (Trig/Chol/HDL) [address] [place] [address] [phone] Cholesterol 140 mg/dL 2 HDL Cholesterol 50.5 mg/dL 3 LDL Cholesterol 73 mg/dL 4 Lipid Panel - 04/12/2018 [facility] Creatine 83 U/L N 10-[address] Kinase(CK) [place] [address] [phone] Comp Metabolic 04/12/2018 [facility] Sodium 137 N 135-[address] mmol/[place] [address] [phone] Potassium 4.9 mmol/L N 3.5-5.0 Chloride 103 mmol/L N 101-111 Co2 Carbon Dioxide 30 mmol/L N 22-32 Anion Gap 4 mmol/L N 2-11 Glucose 191 mg/dL High 70-100 Blood Urea Nitrogen 35 mg/dL High 6-24 Creatinine 1.40 mg/dL High 0.67-1.17 BUN/Creatinine Ratio 25.0 High 8-20 Calcium 8.9 mg/dL N 8.6-10.3 Total Protein 6.3 g/dL Low 6.4-8.9 Albumin 3.6 g/dL N 3.2-5.2 Globulin 2.7 g/dL N 2-4 Albumin/Globulin Ratio 1.3 N 1-3 Total Bilirubin 0.30 mg/dL N 0.2-1.0 Alkaline Phosphatase 88 U/L N 34-104 Alt 10 U/L N 7-52 Ast 17 U/L N 13-39 Egfr Non- 48.1 >60 Egfr 58.1 >60 5 CBC Auto Diff 04/12/2018 [facility] White Blood 5.9 10^3/uL N 3.5-10.[address] [place] [address] [phone] Red Blood Count 3.07 10^6/uL Low 4.00-5.40 Hemoglobin 8.4 g/dL Low 14.0-18.0 Hematocrit 26 % Low 42-52 Mean Corpuscular Volume 85 fL N 80-94 Mean Corpuscular Hemoglobin 27 pg N 27-31 Mean Corpuscular HGB Conc 32 g/dL N 31-36 Red Cell Distribution Width 16 % High 10.5-15 Platelet Count 231 10^3/uL N 150-450 Mean Platelet Volume 9.1 fL N 7.4-10.4 Abs Neutrophils 4.2 10^3/uL N 1.5-7.7 Abs Lymphocytes 1.0 10^3/uL N 1.0-4.8 Abs Monocytes 0.5 10^3/uL N 0-0.8 Abs Eosinophils 0.2 10^3/uL N 0-0.6 Abs Basophils 0 10^3/uL N 0-0.2 Abs Nucleated RBC 0 10^3/uL Granulocyte % 70.7 % Lymphocyte % 17.1 % Monocyte % 8.8 % Eosinophil % 2.7 % Basophil % 0.7 % Nucleated Red Blood Cells % 0 Laboratory test 04/12/2018 [facility] B-Type 440 pg/mL High <= [address] [place] [address] Peptide BNP [phone] Iron & Iron 04/12/2018 [facility] Iron 49 g/dL Low 50-[address] [place] [address] [phone] Unsaturated Iron Binding < 404 g/dL Total Iron Binding Capacity 419 g/dL N 250-450 Transferrin 299 mg/dL N 203-362 % Iron Saturation 12 % Low 15-55 Vitamin B12 04/12/2018 [facility] Vitamin B12 > 1450 pg/mL High 180-914 [address] [place] [address] [phone] Folic Acid (Folate) > 20.00 ng/mL >3.99 Laboratory test 04/12/2018 [facility] Digoxin 0.5 ng/ml Low 0.8-2.[address] [place] [address] [phone] Laboratory test 01/04/2018 [facility] B-Type 305 pg/mL High [address] [place] [address] Peptide BNP [phone] CBC Auto Diff 01/04/2018 [facility] White Blood 5.6 N 3.5- 10.[address] Count 10^3/[place] [address] [phone] Red Blood Count 3.03 10^6/uL Low 4.00-5.40 Hemoglobin 8.2 g/dL Low 14.0-18.0 Hematocrit 26 % Low 42-52 Mean Corpuscular Volume 85 fL N 80-94 Mean Corpuscular Hemoglobin 27 pg N 27-31 Mean Corpuscular HGB Conc 32 g/dL N 31-36 Red Cell Distribution Width 16 % High 10.5-15 Platelet Count 197 10^3/uL N 150-450 Mean Platelet Volume 9.2 um3 N 7.4-10.4 Abs Neutrophils 4.1 10^3/uL N 1.5-7.7 Abs Lymphocytes 0.9 10^3/uL Low 1.0-4.8 Abs Monocytes 0.5 10^3/uL N 0-0.8 Abs Eosinophils 0.1 10^3/uL N 0-0.6 Abs Basophils 0 10^3/uL N 0-0.2 Abs Nucleated RBC 0 10^3/uL Granulocyte % 72.2 % N 38-83 Lymphocyte % 16.4 % Low 25-47 Monocyte % 8.5 % High 0-7 Eosinophil % 2.4 % N 0-6 Basophil % 0.5 % N 0-2 Nucleated Red Blood Cells % 0.1 Comp Metabolic Panel 01/04/2018 [facility] Sodium 138 mmol/L N 135-[address] [place] [address] [phone] Potassium 4.7 mmol/L N 3.5-5.0 Chloride 106 mmol/L N 101-111 Co2 Carbon Dioxide 29 mmol/L N 22-32 Anion Gap 3 mmol/L N 2-11 Glucose 110 mg/dL High 70-100 Blood Urea Nitrogen 31 mg/dL High 6-24 Creatinine 1.66 mg/dL High 0.67-1.17 BUN/Creatinine Ratio 18.7 N 8-20 Calcium 8.9 mg/dL N 8.6-10.3 Total Protein 6.9 g/dL N 6.4-8.9 Albumin 3.7 g/dL N 3.2-5.2 Globulin 3.2 g/dL N 2-4 Albumin/Globulin Ratio 1.2 N 1-3 Total Bilirubin 0.40 mg/dL N 0.2-1.0 Alkaline Phosphatase 89 U/L N 34-104 Alt 8 U/L N 7-52 Ast 16 U/L N 13-39 Egfr Non- 39.5 >60 Egfr 47.8 >60 8 Laboratory test 01/04/2018 [facility] Creatine 64 U/L N 10- [address] Kinase([place]) [place] [address] [phone] Troponin-I (TnI) 0.03 ng/mL <0.04 Inr/Protime 01/04/2018 [facility] Inr 0.90 N 0.77-1.[address] [place], [place] [id number] [phone] Laboratory test 01/04/2018 [facility] Partial 29.4 N 26.0- 36.[address] [place] [address] [phone] Urine Culture And 01/04/2018 [facility] Urine SEE RESULT [address] [place] [address] [phone] Urinalysis Profile 01/04/2018 [facility] Urine Color Yellow [address] [place] [address] [phone] Urine Appearance Cloudy Urine Specific [place] 1.013 N 1.010-1.030 Urine pH 5.0 N 5-9 Urine Urobilinogen Negative Negative Urine Ketones Negative Negative Urine Protein Negative Negative Urine Leukocytes 3+ Abnormal Negative Urine Blood 1+ Abnormal Negative Urine Nitrite Positive Abnormal Negative Urine Bilirubin Negative Negative Urine Glucose Negative Negative Urine White Blood Cell 3+(>20/hpf) Abnormal Absent Urine Red Blood Cell 1+(3-5/hpf) Abnormal Absent Urine Bacteria Absent Absent Urine Squamous Epithelial Cell Present Abnormal Absent Urine Amorphous Crystals Present Abnormal Absent Stool Occult 01/04/2018 [facility] Stool Occult SEE RESULT 10 Blood, Screen [address] Blood, [place] [address] [phone] CBC Auto Diff 12/30/2017 [facility] White Blood 6.8 10^3/uL N 3.5-10. [address] Count 8 [place] [address] [phone] Red Blood Count 2.94 10^6/uL Low 4.00-5.40 Hemoglobin 8.1 g/dL Low 14.0-18.0 Hematocrit 25 % Low 42-52 Mean Corpuscular Volume 85 fL N 80-94 Mean Corpuscular Hemoglobin 28 pg N 27-31 Mean Corpuscular HGB Conc 32 g/dL N 31-36 Red Cell Distribution Width 16 % High 10.5-15 Platelet Count 205 10^3/uL N 150-450 Mean Platelet Volume 9.6 um3 N 7.4-10.4 Abs Neutrophils 5.0 10^3/uL N 1.5-7.7 Abs Lymphocytes 1.1 10^3/uL N 1.0-4.8 Abs Monocytes 0.6 10^3/uL N 0-0.8 Abs Eosinophils 0.2 10^3/uL N 0-0.6 Abs Basophils 0 10^3/uL N 0-0.2 Abs Nucleated RBC 0 10^3/uL Granulocyte % 73.0 % N 38-83 Lymphocyte % 15.7 % Low 25-47 Monocyte % 8.6 % High 0-7 Eosinophil % 2.2 % N 0-6 Basophil % 0.5 % N 0-2 Nucleated Red Blood Cells % 0.1 Basic Metabolic Panel 12/30/2017 [facility] Sodium 138 mmol/L N 135-[address] [place] [address] [phone] Potassium 5.0 mmol/L N 3.5-5.0 Chloride 106 mmol/L N 101-111 Co2 Carbon Dioxide 29 mmol/L N 22-32 Anion Gap 3 mmol/L N 2-11 Glucose 169 mg/dL High 70-100 Blood Urea Nitrogen 33 mg/dL High 6-24 Creatinine 1.51 mg/dL High 0.67-1.17 BUN/Creatinine Ratio 21.9 High 8-20 Calcium 8.7 mg/dL N 8.6-10.3 Egfr Non- 44.0 >60 Egfr 53.3 >60 11 Iron & Iron Binding 12/30/2017 [facility] Iron 69 g/dL N 50- [address] [place] [address] [phone] Unsaturated Iron Binding 315 g/dL Total Iron Binding Capacity 384 g/dL N 250-450 Transferrin 274 mg/dL N 203-362 % Iron Saturation 18 % N 15-55 Laboratory test 12/30/2017 [facility] Vitamin B12 > 1450 High 180-914 [address] pg/[place] [address] [phone] Comp Metabolic 10/08/2017 [facility] Sodium 139 mmol/L N 135- [address] [place] [address] [phone] Chloride 104 mmol/L N 101-111 Co2 Carbon Dioxide 31 mmol/L N 22-32 Glucose 104 mg/dL High 70-100 Blood Urea Nitrogen 32 mg/dL High 6-24 Creatinine 1.46 mg/dL High 0.67-1.17 BUN/Creatinine Ratio 21.9 High 8-20 Calcium 8.9 mg/dL N 8.6-10.3 Total Protein 6.7 g/dL N 6.4-8.9 Albumin 3.6 g/dL N 3.2-5.2 Globulin 3.1 g/dL N 2-4 Albumin/Globulin Ratio 1.2 N 1-3 Total Bilirubin 0.30 mg/dL N 0.2-1.0 Alkaline Phosphatase 78 U/L N 34-104 Alt 11 U/L N 7-52 Ast 17 U/L N 13-39 Egfr Non- 45.9 >60 Egfr 55.5 >60 13 Potassium 5.2 mmol/L High 3.5-5.0 Anion Gap 4 mmol/L N 2-11 Iron & Iron Binding 10/08/2017 [facility] Iron 35 g/dL Low 50-[address] [place] [address] [phone] Unsaturated Iron Binding 372 g/dL Total Iron Binding Capacity 407 g/dL N 250-450 Transferrin 291 mg/dL N 203-362 % Iron Saturation 9 % Low 15-55 CBC Auto Diff 10/08/2017 [facility] White Blood 7.3 10^3/uL N 3.5-10.[address] [place] [address] [phone] Red Blood Count 2.97 10^6/uL Low 4.00-5.40 Hemoglobin 8.2 g/dL Low 14.0-18.0 Hematocrit 25 % Low 42-52 Mean Corpuscular Volume 84 fL N 80-94 Mean Corpuscular Hemoglobin 28 pg N 27-31 Mean Corpuscular HGB Conc 33 g/dL N 31-36 Red Cell Distribution Width 16 % High 10.5-15 Platelet Count 250 10^3/uL N 150-450 Mean Platelet Volume 9.2 um3 N 7.4-10.4 Abs Neutrophils 5.1 10^3/uL N 1.5-7.7 Abs Lymphocytes 1.3 10^3/uL N 1.0-4.8 Abs Monocytes 0.8 10^3/uL N 0-0.8 Abs Eosinophils 0.1 10^3/uL N 0-0.6 Abs Basophils 0 10^3/uL N 0-0.2 Abs Nucleated RBC 0 10^3/uL Granulocyte % 69.7 % N 38-83 Lymphocyte % 17.5 % Low 25-47 Monocyte % 10.8 % High 0-7 Eosinophil % 1.6 % N 0-6 Basophil % 0.4 % N 0-2 Nucleated Red Blood Cells % 0 Urine Culture And 08/11/2017 [facility] Urine SEE RESULT [address] [place] [address] [phone] Iron & Iron Binding 08/05/2017 [facility] Iron 35 g/dL Low 50-[address] [place] [address] [phone] Unsaturated Iron Binding 381 g/dL Total Iron Binding Capacity 416 g/dL N 250-450 Transferrin 297 mg/dL N 203-362 % Iron Saturation 8 % Low 15-55 CBC Auto Diff 08/05/2017 [facility] White Blood 7.6 10^3/uL N 3.5-10.[address] [place] [address] [phone] Red Blood Count 3.00 10^6/uL Low 4.0-5.4 Hemoglobin 8.6 g/dL Low 14.0-18.0 Hematocrit 26 % Low 42-52 Mean Corpuscular Volume 87 fL N 80-94 Mean Corpuscular Hemoglobin 29 pg N 27-31 Mean Corpuscular HGB Conc 33 g/dL N 31-36 Red Cell Distribution Width 15 % N 10.5-15 Platelet Count 219 10^3/uL N 150-450 Mean Platelet Volume 9.6 um3 N 7.4-10.4 Abs Neutrophils 5.3 10^3/uL N 1.5-7.7 Abs Lymphocytes 1.3 10^3/uL N 1.0-4.8 Abs Monocytes 0.7 10^3/uL N 0-0.8 Abs Eosinophils 0.2 10^3/uL N 0-0.6 Abs Basophils 0 10^3/uL N 0-0.2 Abs Nucleated RBC 0 10^3/uL Granulocyte % 70.3 % N 38-83 Lymphocyte % 17.3 % Low 25-47 Monocyte % 9.7 % High 0-7 Eosinophil % 2.0 % N 0-6 Basophil % 0.7 % N 0-2 Nucleated Red Blood Cells % 0 Laboratory test 08/05/2017 [facility] Digoxin 0.6 ng/ml Low 0.8-2.0 finding [address] [place] [address] [phone] Lipid Profile 08/05/2017 [facility] Triglycerides 69 mg/dL 15 (Trig/Chol/HDL) [address] [place] [address] [phone] Cholesterol 120 mg/dL 16 HDL Cholesterol 48.4 mg/dL 17 LDL Cholesterol 58 mg/dL 18 Comp Metabolic Panel 08/05/2017 [facility] Sodium 139 mmol/L N 139-145 [address] [place] [address] [phone] Potassium 4.8 mmol/L N 3.5-5.0 Chloride 101 mmol/L N 101-111 Co2 Carbon Dioxide 32 mmol/L N 22-32 Anion Gap 6 mmol/L N 2-11 Glucose 92 mg/dL N 70-100 Blood Urea Nitrogen 34 mg/dL High 6-24 Creatinine 1.33 mg/dL High 0.67-1.17 BUN/Creatinine Ratio 25.6 High 8-20 Calcium 9.1 mg/dL N 8.6-10.3 Total Protein 7.0 g/dL N 6.4-8.9 Albumin 3.9 g/dL N 3.2-5.2 Globulin 3.1 g/dL N 2-4 Albumin/Globulin Ratio 1.3 N 1-3 Total Bilirubin 0.40 mg/dL N 0.2-1.0 Alkaline Phosphatase 86 U/L N 34-104 Alt 13 U/L N 7-52 Ast 21 U/L N 13-39 Egfr Non- 51.1 >60 Egfr 65.7 >60 19 Lipid Panel - J[facility] 08/05/2017 [facility] Creatine 88 U/L N 10- [address] [facility] Kinase(CK) [place] [address] [phone] Urinalysis 08/04/2017 [facility] Urine Color Yellow Profile [address] [place] [address] [phone] Urine Appearance Cloudy Urine Specific [place] 1.008 Low 1.010-1.030 Urine pH 5.0 N 5-9 Urine Urobilinogen Negative Negative Urine Ketones Negative Negative Urine Protein Negative Negative Urine Leukocytes 3+ Abnormal Negative Urine Blood 1+ Abnormal Negative Urine Nitrite Negative Negative Urine Bilirubin Negative Negative Urine Glucose Negative Negative Urine White Blood Cell 3+(>20/hpf) Abnormal Absent Urine Red Blood Cell Trace(0-2/hpf) Absent Urine Bacteria 1+ Abnormal Absent Urine Hyaline Casts Present Abnormal Absent Urine Culture And 08/04/2017 [facility] Urine Culture SEE RESULT [address] [place] [address] [phone] Laboratory test 06/06/2017 [facility] C Reactive 4.62 mg/L N < [address] Protein 5.00 [place] [address] [phone] Comp Metabolic 06/06/2017 [facility] Sodium 136 mmol/L N 133- [address] [place] [address] [phone] Potassium 4.7 mmol/L N 3.5-5.0 Chloride 101 mmol/L N 101-111 Co2 Carbon Dioxide 33 mmol/L High 22-32 Anion Gap 2 mmol/L N 2-11 Glucose 87 mg/dL N 70-100 Blood Urea Nitrogen 27 mg/dL High 6-24 Creatinine 1.15 mg/dL N 0.67-1.17 BUN/Creatinine Ratio 23.5 High 8-20 Calcium 8.9 mg/dL N 8.6-10.3 Total Protein 6.7 g/dL N 6.4-8.9 Albumin 3.4 g/dL N 3.2-5.2 Globulin 3.3 g/dL N 2-4 Albumin/Globulin Ratio 1.0 N 1-3 Total Bilirubin 0.30 mg/dL N 0.2-1.0 Alkaline Phosphatase 73 U/L N 34-104 Alt 11 U/L N 7-52 Ast 18 U/L N 13-39 Egfr Non- 60.4 >60 Egfr 77.7 >60 22 Inr/Protime 06/06/2017 [facility] Inr 0.93 N 0.77-1.[address] [place] [address] [phone] CBC Auto Diff 06/06/2017 [facility] White Blood 7.9 10^3/uL N 3.5-10.8 [address] [place] [address] [phone] Red Blood Count 2.62 10^6/uL Low 4.0-5.4 Hemoglobin 7.9 g/dL Low 14.0-18.0 Hematocrit 24 % Low 42-52 Mean Corpuscular Volume 92 fL N 80-94 Mean Corpuscular Hemoglobin 30 pg N 27-31 Mean Corpuscular HGB Conc 33 g/dL N 31-36 Red Cell Distribution Width 14 % N 10.5-15 Platelet Count 197 10^3/uL N 150-450 Mean Platelet Volume 9 um3 N 7.4-10.4 Abs Neutrophils 5.6 10^3/uL N 1.5-7.7 Abs Lymphocytes 1.4 10^3/uL N 1.0-4.8 Abs Monocytes 0.8 10^3/uL N 0-0.8 Abs Eosinophils 0.2 10^3/uL N 0-0.6 Abs Basophils 0.1 10^3/uL N 0-0.2 Abs Nucleated RBC 0 10^3/uL Granulocyte % 70.2 % N 38-83 Lymphocyte % 17.1 % Low 25-47 Monocyte % 10.0 % High 0-7 Eosinophil % 2.0 % N 0-6 Basophil % 0.7 % N 0-2 Nucleated Red Blood Cells % 0 Stool Occult 06/06/2017 [facility] Stool Occult SEE RESULT [address] Blood, [place] [address] [phone] Lipid Panel - 04/08/2017 [facility] Creatine 72 U/L N 10-223 [employer] Kinase(CK) [place] [address] [phone] Comp Metabolic 04/08/2017 [facility] Sodium 138 mmol/L N 133- 14 Panel [address] [place] [address] [phone] Potassium 4.7 mmol/L N 3.5-5.0 Chloride 101 mmol/L N 101-111 Co2 Carbon Dioxide 33 mmol/L High 22-32 Anion Gap 4 mmol/L N 2-11 Glucose 93 mg/dL N 70-100 Blood Urea Nitrogen 39 mg/dL High 6-24 Creatinine 1.40 mg/dL High 0.67-1.17 BUN/Creatinine Ratio 27.9 High 8-20 Calcium 9.3 mg/dL N 8.6-10.3 Total Protein 7.0 g/dL N 6.4-8.9 Albumin 3.5 g/dL N 3.2-5.2 Globulin 3.5 g/dL N 2-4 Albumin/Globulin Ratio 1.0 N 1-3 Total Bilirubin 0.50 mg/dL N 0.2-1.0 Alkaline Phosphatase 97 U/L N 34-104 Alt 14 U/L N 7-52 Ast 23 U/L N 13-39 Egfr Non- 48.2 >60 Egfr 61.9 >60 24 Lipid Profile 04/08/2017 [facility] Triglycerides 63 mg/dL 25 (Trig/Chol/HDL) [address] [place] [address] [phone] Cholesterol 127 mg/dL 26 HDL Cholesterol 49.7 mg/dL 27 LDL Cholesterol 65 mg/dL 28 CBC Auto Diff 04/08/2017 [facility] White Blood 8.6 10^3/uL N 3.5-10.[address] [place] [address] [phone] Red Blood Count 3.05 10^6/uL Low 4.0-5.4 Hemoglobin 8.9 g/dL Low 14.0-18.0 Hematocrit 27 % Low 42-52 Mean Corpuscular Volume 89 fL N 80-94 Mean Corpuscular Hemoglobin 29 pg N 27-31 Mean Corpuscular HGB Conc 33 g/dL N 31-36 Red Cell Distribution Width 20 % High 10.5-15 Platelet Count 226 10^3/uL N 150-450 Mean Platelet Volume 9 um3 N 7.4-10.4 Abs Neutrophils 5.9 10^3/uL N 1.5-7.7 Abs Lymphocytes 1.6 10^3/uL N 1.0-4.8 Abs Monocytes 0.8 10^3/uL N 0-0.8 Abs Eosinophils 0.2 10^3/uL N 0-0.6 Abs Basophils 0.1 10^3/uL N 0-0.2 Abs Nucleated RBC 0 10^3/uL Granulocyte % 68.6 % N 38-83 Lymphocyte % 18.6 % Low 25-47 Monocyte % 9.5 % High 1-9 Eosinophil % 2.6 % N 0-6 Basophil % 0.7 % N 0-2 Nucleated Red Blood Cells % 0 Laboratory test 04/08/2017 [facility] Magnesium 2.3 mg/dL N 1.9-2.[address] [place] [address] [phone] Iron & Iron 04/08/2017 [facility] Iron 46 g/dL Low 50-212 Binding Capacity [address] [place] [address] [phone] Unsaturated Iron Binding 307 g/dL Total Iron Binding Capacity 353 g/dL N 250-450 % Iron Saturation 13 % Low 15-55 CBC Auto Diff 01/03/2017 [facility] White Blood 5.9 10^3/uL N 3.5-10.[address] [place] [address] [phone] Red Blood Count 4.04 10^6/uL N 4.0-5.4 Hemoglobin 10.4 g/dL Low 14.0-18.0 Hematocrit 32 % Low 42-52 Mean Corpuscular Volume 80 fL N 80-94 Mean Corpuscular Hemoglobin 26 pg Low 27-31 Mean Corpuscular HGB Conc 32 g/dL N 31-36 Red Cell Distribution Width 17 % High 10.5-15 Platelet Count 203 10^3/uL N 150-450 Mean Platelet Volume 9 um3 N 7.4-10.4 Abs Neutrophils 4.5 10^3/uL N 1.5-7.7 Abs Lymphocytes 0.8 10^3/uL Low 1.0-4.8 Abs Monocytes 0.5 10^3/uL N 0-0.8 Abs Eosinophils 0.1 10^3/uL N 0-0.6 Abs Basophils 0 10^3/uL N 0-0.2 Abs Nucleated RBC 0.01 10^3/uL N Granulocyte % 76.1 % N 38-83 Lymphocyte % 13.2 % Low 25-47 Monocyte % 8.8 % N 1-9 Eosinophil % 1.2 % N 0-6 Basophil % 0.7 % N 0-2 Nucleated Red Blood Cells % 0.1 N Inr/Protime 01/03/2017 [facility] Inr 1.06 N 0.89-1.[address] [place] [address] [phone] Laboratory test 01/03/2017 [facility] Partial 22.8 Low 26.0- 36.[address] [place] [address] PTT [phone] Lactic Acid 1.1 mmol/L N 0.5-2.0 29 Comp Metabolic Panel 01/03/2017 [facility] Sodium 134 mmol/L N 133-[address] [place] [address] [phone] Potassium 4.5 mmol/L N 3.5-5.0 Chloride 100 mmol/L Low 101-111 Co2 Carbon Dioxide 30 mmol/L N 22-32 Anion Gap 4 mmol/L N 2-11 Glucose 109 mg/dL High 70-100 Blood Urea Nitrogen 44 mg/dL High 6-24 Creatinine 1.56 mg/dL High 0.67-1.17 BUN/Creatinine Ratio 28.2 High 8-20 Calcium 8.7 mg/dL N 8.6-10.3 Total Protein 6.5 g/dL N 6.4-8.9 Albumin 3.1 g/dL Low 3.2-5.2 Globulin 3.4 g/dL N 2-4 Albumin/Globulin Ratio 0.9 Low 1-3 Total Bilirubin 0.50 mg/dL N 0.2-1.0 Alkaline Phosphatase 107 U/L High 34-104 Alt 25 U/L N 7-52 Ast 27 U/L N 13-39 Egfr Non- 42.5 N >60 Egfr 54.7 N >60 30 Laboratory test 01/03/2017 [facility] Magnesium 2.3 mg/dL N 1.9-2.[address] [place] [address] [phone] Lipase 31 U/L N 11.0-82.0 Creatine Kinase(CK) 37 U/L N 10-223 C Reactive Protein 23.65 mg/L High < 5.00 31 Troponin-I (TnI) 0.06 ng/mL High <0.04 32 CKMB 01/03/2017 [facility] CKMB ng/mL 3.0 ng/mL N 0.6-6.[address] [place] [address] [phone] Laboratory test 01/03/2017 [facility] TSH 2.72 N 0.34-5.[address] (Thyroid mcIU/[place] [address] [facility]) [phone] B-Type Natriuretic Peptide BNP 6539 pg/mL High 33 Urinalysis Profile 01/03/2017 [facility] Urine Color Yellow [place] [address] [place] [address] [phone] Urine Appearance Clear N Urine Specific [place] 1.010 N 1.010-1.030 Urine pH 5.0 N 5-9 Urine Urobilinogen Negative N Negative Urine Ketones Negative N Negative Urine Protein Negative N Negative Urine Leukocytes 2+ Abnormal Negative Urine Blood Negative N Negative Urine Nitrite Negative N Negative Urine Bilirubin Negative N Negative Urine Glucose Negative N Negative Urine White Blood Cell 1+(6-10/hpf) Abnormal Absent Urine Red Blood Cell Trace(0-2/hpf) N Absent Urine Bacteria Absent N Absent Urine Hyaline Casts Present Abnormal Absent Urine Culture And 01/03/2017 [facility] Urine Culture SEE RESULT [address] [place], [place] [phone] CBC Auto Diff 12/25/2016 [facility] White Blood 6.9 10^3/uL N 3.5-[address] DR[address] Count 0.8 [place], [place] [phone] Red Blood Count 4.27 10^6/uL N 4.0-5.4 Hemoglobin 11.0 g/dL Low 14.0-18.0 Hematocrit 36 % Low 42-52 Mean Corpuscular Volume 84 fL N 80-94 Mean Corpuscular Hemoglobin 26 pg Low 27-31 Mean Corpuscular HGB Conc 31 g/dL N 31-36 Red Cell Distribution Width 17 % High 10.5-15 Platelet Count 202 10^3/uL N 150-450 Mean Platelet Volume 10 um3 N 7.4-10.4 Abs Neutrophils 5.6 10^3/uL N 1.5-7.7 Abs Lymphocytes 0.8 10^3/uL Low 1.0-4.8 Abs Monocytes 0.4 10^3/uL N 0-0.8 Abs Eosinophils 0 10^3/uL N 0-0.6 Abs Basophils 0 10^3/uL N 0-0.2 Abs Nucleated RBC 0 10^3/uL N Granulocyte % 81.2 % N 38-83 Lymphocyte % 11.7 % Low 25-47 Monocyte % 6.2 % N 1-9 Eosinophil % 0.3 % N 0-6 Basophil % 0.6 % N 0-2 Nucleated Red Blood Cells % 0 N Iron & Iron Binding 12/25/2016 [facility] Iron 27 g/dL Low 50-[address] [place] [address] [phone] Unsaturated Iron Binding 394 g/dL N Total Iron Binding Capacity 421 g/dL N 250-450 % Iron Saturation 6 % Low 15-55 Comp Metabolic Panel 12/25/2016 [facility] Sodium 139 mmol/L N 133-[address] [place] [address] [phone] Potassium 4.8 mmol/L N 3.5-5.0 Chloride 101 mmol/L N 101-111 Co2 Carbon Dioxide 29 mmol/L N 22-32 Anion Gap 9 mmol/L N 2-11 Glucose 216 mg/dL High 70-100 Blood Urea Nitrogen 25 mg/dL High 6-24 Creatinine 1.22 mg/dL High 0.67-1.17 BUN/Creatinine Ratio 20.5 High 8-20 Calcium 8.3 mg/dL Low 8.6-10.3 Total Protein 6.1 g/dL Low 6.4-8.9 Albumin 3.0 g/dL Low 3.2-5.2 Globulin 3.1 g/dL N 2-4 Albumin/Globulin Ratio 1.0 N 1-3 Total Bilirubin 0.70 mg/dL N 0.2-1.0 Alkaline Phosphatase 84 U/L N 34-104 Alt 16 U/L N 7-52 Ast 21 U/L N 13-39 Egfr Non- 56.5 N >60 Egfr 72.6 N >60 35 Laboratory test 12/23/2016 [facility] C Difficile PCR SEE RESULT [address] [place] [address] [phone] E.Coli 0157:H7 SEE RESULT BELOW 37 Laboratory test 12/17/2016 [facility] B-Type 5689 pg/mL High [address] [place] [address] Peptide BNP [phone] Comp Metabolic 12/17/2016 [facility] Sodium 137 mmol/L N 133- [address] [place] [address] [phone] Potassium 4.8 mmol/L N 3.5-5.0 Chloride 101 mmol/L N 101-111 Glucose 82 mg/dL N 70-100 Blood Urea Nitrogen 29 mg/dL High 6-24 Creatinine 1.23 mg/dL High 0.67-1.17 BUN/Creatinine Ratio 23.6 High 8-20 Calcium 9.0 mg/dL N 8.6-10.3 Total Protein 6.2 g/dL Low 6.4-8.9 Albumin 3.1 g/dL Low 3.2-5.2 Globulin 3.1 g/dL N 2-4 Albumin/Globulin Ratio 1.0 N 1-3 Total Bilirubin 1.00 mg/dL N 0.2-1.0 Alkaline Phosphatase 94 U/L N 34-104 Alt 13 U/L N 7-52 Ast 17 U/L N 13-39 Egfr Non- 55.9 N >60 Egfr 71.9 N >60 39 Co2 Carbon Dioxide 30 mmol/L N 22-32 Anion Gap 6 mmol/L N 2-11 CBC Auto Diff 12/17/2016 [facility] White Blood 6.4 10^3/uL N 3.5-10.[address] [place] [address] [phone] Red Blood Count 4.29 10^6/uL N 4.0-5.4 Hemoglobin 11.1 g/dL Low 14.0-18.0 Hematocrit 35 % Low 42-52 Mean Corpuscular Volume 82 fL N 80-94 Mean Corpuscular Hemoglobin 26 pg Low 27-31 Mean Corpuscular HGB Conc 32 g/dL N 31-36 Red Cell Distribution Width 17 % High 10.5-15 Platelet Count 219 10^3/uL N 150-450 Mean Platelet Volume 10 um3 N 7.4-10.4 Abs Neutrophils 4.8 10^3/uL N 1.5-7.7 Abs Lymphocytes 0.9 10^3/uL Low 1.0-4.8 Abs Monocytes 0.6 10^3/uL N 0-0.8 Abs Eosinophils 0 10^3/uL N 0-0.6 Abs Basophils 0 10^3/uL N 0-0.2 Abs Nucleated RBC 0 10^3/uL N Granulocyte % 74.7 % N 38-83 Lymphocyte % 14.8 % Low 25-47 Monocyte % 9.5 % High 1-9 Eosinophil % 0.5 % N 0-6 Basophil % 0.5 % N 0-2 Nucleated Red Blood Cells % 0 N Vitamin B12 12/17/2016 [facility] Vitamin B12 1299 pg/mL High 180-914 [address] [facility] [place] [address] [phone] Folic Acid (Folate) > 20.00 ng/mL N >3.99 Laboratory test 12/17/2016 [facility] TSH (Thyroid 4.21 mcIU/mL N 0.34-5.[address] [facility] [place] [address] [phone] Magnesium 2.2 mg/dL N 1.9-2.7 Lipid Profile 12/17/2016 [facility] Triglycerides 50 mg/dL N 41 (Trig/Chol/HDL) [address] [place] [address] [phone] Cholesterol 93 mg/dL N 42 HDL Cholesterol 47.5 mg/dL N 43 LDL Cholesterol 36 mg/dL N 44 Lipid Panel - 12/17/2016 [facility] Creatine Kinase(CK) 39 U/L N 10-223 J[address] [place] [address] [phone] 1 Desirable: <150 Borderline High: 150-199 High: 200-499 Very High: >500 2 Desirable: <200 Borderline High: 200-239 High: >239 3 Low: <40 Desirable: 40-60 High: >60 4 Desirable: <100 Near Optimal: 100-129 Borderline High: 130-159 High: 160-189 Very High: >189 5 Because ethnic data is not always readily available, this report includes an eGFR for both -Americans and non- Americans. The National Kidney Disease Education Program (NKDEP) does not endorse the use of the MDRD equation for patients that are not between the ages of 18 and 70, are , have extremes of body size, muscle mass, or nutritional status, or are non- or non-. According to the National Kidney Foundation, irrespective of diagnosis, the stage of the disease is based on the level of kidney function: Stage Description GFR(mL/min/1.73 m(2)) 1 Kidney damage with normal or decreased GFR 90 2 Kidney damage with mild decrease in GFR 60-89 3 Moderate decrease in GFR 30-59 4 Severe decrease in GFR 15-29 5 Kidney failure <15 (or dialysis) 6 Normal Range 180 to 914 Indeterminate Range 145 to 180 Deficient Range <145 7 >100 to <200 pg/mL: likely compensated congestive heart failure (CHF) 200 to 400 pg/mL: likely moderate CHF >400 pg/mL: likely moderate to severe CHF 8 Because ethnic data is not always readily available, this report includes an eGFR for both -Americans and non- Americans. The National Kidney Disease Education Program (NKDEP) does not endorse the use of the MDRD equation for patients that are not between the ages of 18 and 70, are , have extremes of body size, muscle mass, or nutritional status, or are non- or non-. According to the National Kidney Foundation, irrespective of diagnosis, the stage of the disease is based on the level of kidney function: Stage Description GFR(mL/min/1.73 m(2)) 1 Kidney damage with normal or decreased GFR 90 2 Kidney damage with mild decrease in GFR 60-89 3 Moderate decrease in GFR 30-59 4 Severe decrease in GFR 15-29 5 Kidney failure <15 (or dialysis) 9 SEE RESULT BELOW Name: MEGHAPATRICK : [address]: Artemio Coyne MD Acct: [id number] Unit: [id number] AGE: 87 Location: ED Re01/04/18 SEX: M Status: DEP ER SPEC: [id number] ZANA: 01/04/[address]: Felicita GRAVES REQ: [id number] RECD: 01/04/18 STATUS: ZAIN MATUTE DR: Daniella Coyne MD _ SOURCE: URINE [facility]: ORDERED: Urine Culture Procedure Result Reported Site Urine Culture Final 01/06/18- 0800 ML Organism 1 KLEBSIELLA OXYTOCA [place] Count >100,000 (Many) CFU/ML 1. KLEBSIELLA OXYTOCA [facility].I.C. RX --------- ------ Ampicillin R Cefazolin <=4 S Cefepime <=1 S Ceftriaxone <=1 S Ciprofloxacin 0.5 S Gentamicin <=1 S Levofloxacin 1 S Meropenem <=0.25 S Nitrofurantoin 32 S Tetracycline <=1 S Pipercillin/Tazobactam <=4 S Trimethoprim/Sulfamethoxazole <=20 S Amoxicillin/Clavulanic Acid <=2 S Aztreonam <=1 S Contact the Microbiology Department for any additional antibiotic reporting. * ML - Main Lab . END OF REPORT DEPARTMENT OF PATHOLOGY, [address] [place] [address] Gary Olson M.D. Director [facility] # [id number] 10 SEE RESULT BELOW Name: MEGHAPATRICK : [address]: Artemio Coyne MD Acct: [id number] Unit: [id number] AGE: 87 Location: ED Re01/04/18 SEX: M Status: REG ER SPEC: [id number] ZANA: 01/04/[address]: Felicita GRAVES REQ: [id number] RECD: 01/04/18 STATUS: ZAIN MATUTE DR: Daniella Coyne MD _ SOURCE: STOOL SPDESC: ORDERED: Occult Bl, Scn Procedure Result Reported Site Stool Occult Blood (1) Final 01/04/18- 1331 ML Stool Occult Blood Negative * ML - Main Lab . END OF REPORT DEPARTMENT OF PATHOLOGY, [address] [place] [address] Gary Olson M.D. Director [facility] # [id number] 11 Because ethnic data is not always readily available, this report includes an eGFR for both -Americans and non- Americans. The National Kidney Disease Education Program (NKDEP) does not endorse the use of the MDRD equation for patients that are not between the ages of 18 and 70, are , have extremes of body size, muscle mass, or nutritional status, or are non- or non-. According to the National Kidney Foundation, irrespective of diagnosis, the stage of the disease is based on the level of kidney function: Stage Description GFR(mL/min/1.73 m(2)) 1 Kidney damage with normal or decreased GFR 90 2 Kidney damage with mild decrease in GFR 60-89 3 Moderate decrease in GFR 30-59 4 Severe decrease in GFR 15-29 5 Kidney failure <15 (or dialysis) 12 Normal Range 180 to 914 Indeterminate Range 145 to 180 Deficient Range <145 13 Because ethnic data is not always readily available, this report includes an eGFR for both -Americans and non- Americans. The National Kidney Disease Education Program (NKDEP) does not endorse the use of the MDRD equation for patients that are not between the ages of 18 and 70, are , have extremes of body size, muscle mass, or nutritional status, or are non- or non-. According to the National Kidney Foundation, irrespective of diagnosis, the stage of the disease is based on the level of kidney function: Stage Description GFR(mL/min/1.73 m(2)) 1 Kidney damage with normal or decreased GFR 90 2 Kidney damage with mild decrease in GFR 60-89 3 Moderate decrease in GFR 30-59 4 Severe decrease in GFR 15-29 5 Kidney failure <15 (or dialysis) 14 SEE RESULT BELOW Name: PATRICK CLEVELAND : [address]: Ervin Villareal NP Acct: [id number] Unit: [id number] AGE: 86 Location: [facility] Re08/11/17 SEX: M Status: REG REF SPEC: [id number] ZANA: 08/11/17-[address]: Erivn Villareal [employer] REQ: [id number] RECD: 08/12/17-1516 STATUS: COMP _ SOURCE: URINE SPDESC: ORDERED: Urine Culture Procedure Result Reported Site Urine Culture Final 08/13/17- 1245 ML Mixed bucky; possible contamination. Suggest resubmission. * ML - Main Lab . END OF REPORT DEPARTMENT OF PATHOLOGY, [address] [place] [address] Gary Olson M.D. Director [facility] # [id number] 15 Desirable: <150 Borderline High: 150-199 High: 200-499 Very High: >500 16 Desirable: <200 Borderline High: 200-239 High: >239 17 Low: <40 Desirable: 40-60 High: >60 18 Desirable: <100 Near Optimal: 100-129 Borderline High: 130-159 High: 160-189 Very High: >189 19 Because ethnic data is not always readily available, this report includes an eGFR for both -Americans and non- Americans. The National Kidney Disease Education Program (NKDEP) does not endorse the use of the MDRD equation for patients that are not between the ages of 18 and 70, are , have extremes of body size, muscle mass, or nutritional status, or are non- or non-. According to the National Kidney Foundation, irrespective of diagnosis, the stage of the disease is based on the level of kidney function: Stage Description GFR(mL/min/1.73 m(2)) 1 Kidney damage with normal or decreased GFR 90 2 Kidney damage with mild decrease in GFR 60-89 3 Moderate decrease in GFR 30-59 4 Severe decrease in GFR 15-29 5 Kidney failure <15 (or dialysis) 20 SEE RESULT BELOW Name: MEGHAPATRICK : [address]: Ervin Villareal NP Acct: [id number] Unit: [id number] AGE: 86 Location: [facility] Re08/04/17 SEX: M Status: REG REF SPEC: [id number] ZANA: 08/04/17-[address]: Ervin Villareal NP REQ: [id number] RECD: 08/04/17 STATUS: COMP _ SOURCE: URINE SPDESC: ORDERED: Urine Culture Procedure Result Reported Site Urine Culture Final 08/05/17- 1350 ML Mixed bucky; possible contamination. Suggest resubmission. * ML - Main Lab . END OF REPORT DEPARTMENT OF PATHOLOGY, [address] [place] [address] Gary Olson M.D. Director [facility] # [id number] 21 Acute inflammation: >10.00 22 Because ethnic data is not always readily available, this report includes an eGFR for both -Americans and non- Americans. The National Kidney Disease Education Program (NKDEP) does not endorse the use of the MDRD equation for patients that are not between the ages of 18 and 70, are , have extremes of body size, muscle mass, or nutritional status, or are non- or non-. According to the National Kidney Foundation, irrespective of diagnosis, the stage of the disease is based on the level of kidney function: Stage Description GFR(mL/min/1.73 m(2)) 1 Kidney damage with normal or decreased GFR 90 2 Kidney damage with mild decrease in GFR 60-89 3 Moderate decrease in GFR 30-59 4 Severe decrease in GFR 15-29 5 Kidney failure <15 (or dialysis) 23 SEE RESULT BELOW Name: MEGHAPATRICK : [address]: Artemio Coyne MD Acct: [id number] Unit: [id number] AGE: 86 Location: ED Re06/06/17 SEX: M Status: DEP ER SPEC: [id number] ZANA: 06/06/17 [facility] DR: Artemio Coyne MD REQ: [id number] RECD: 06/06/17 STATUS: ZAIN MATUTE DR: Daniella Garza MD _ SOURCE: STOOL SPDESC: ORDERED: Occult Bl, Diag, C. diff PCR, Stool Culture, Fecal Lactoferr Procedure Result Reported Site Stool Culture Final 06/08/17- 1232 ML Result No enteric pathogens isolated Testing for Salmonella, Shigella, Aeromonas, Plesiomonas, Yersinia and Campylobacter are included in a Stool Culture. Vibrio spp not routinely tested for in a stool culture. If testing is desired, please request specifically when placing test order. Sensitivities not routinely performed on stool isolates, as antibiotics may prolong the carriage rate of bacteria. Please contact the microbiology lab if sensitivities are required. Stool Specimen Description Final 06/06/17- 1811 ML Stool Color Black Stool Form Nonformed Stool Consistency Liquid Mucoid Shiga Toxin 1 2 Final 06/07/17- 1213 ML Organism 1 Negative Shiga Toxin 1 2 Immunochromatographic Assay CONTINUED ON NEXT PAGE DEPARTMENT OF PATHOLOGY, [address] [place] [address] Gary Olson M.D. Director [facility] # [id number] Patient: PATRICK CLEVELAND [id number] (Continued) Specimen: [id number] Collected: 06/06/17 Received: 06/06/17 (Continued) Procedure Result Reported Site Shiga Toxin 1 2 Final (continued) 06/07/17- 121 C. difficile PCR Final 06/06/17- 2024 ML Organism 1 027 Presumptive NEGATIVE Organism 2 Toxigenic C.diff NEGATIVE Fecal Lactoferrin (Stool WBC) Final 06/06/17- 1810 ML Fecal Lactoferrin Positive by Immunoassay TEST LIMITATIONS: Assay detects elevated levels of lactoferrin released from fecal leukocytes as a marker of intestinal inflammation. The test may not be appropriate in immunocompromised persons. Fecal samples from breast fed infants should not be used with this assay. Stool Occult Blood (1) Final 06/06/17- 1810 ML Stool Occult Blood Positive * ML - [facility] . END OF REPORT DEPARTMENT OF PATHOLOGY, [address] [place] [address] Gary Olson M.D. Director [facility] # [id number] 24 Because ethnic data is not always readily available, this report includes an eGFR for both -Americans and non- Americans. The National Kidney Disease Education Program (NKDEP) does not endorse the use of the MDRD equation for patients that are not between the ages of 18 and 70, are , have extremes of body size, muscle mass, or nutritional status, or are non- or non-. According to the National Kidney Foundation, irrespective of diagnosis, the stage of the disease is based on the level of kidney function: Stage Description GFR(mL/min/1.73 m(2)) 1 Kidney damage with normal or decreased GFR 90 2 Kidney damage with mild decrease in GFR 60-89 3 Moderate decrease in GFR 30-59 4 Severe decrease in GFR 15-29 5 Kidney failure <15 (or dialysis) 25 Desirable: <150 Borderline High: 150-199 High: 200-499 Very High: >500 26 Desirable: <200 Borderline High: 200-239 High: >239 27 Low: <40 Desirable: 40-60 High: >60 28 Desirable: <100 Near Optimal: 100-129 Borderline High: 130-159 High: 160-189 Very High: >189 29 [place] Severe Sepsis and Septic Shock Management Bundle Measure requires all lactic acids initially measuring >2.0 mmol/L be repeated. 30 Because ethnic data is not always readily available, this report includes an eGFR for both -Americans and non- Americans. The National Kidney Disease Education Program (NKDEP) does not endorse the use of the MDRD equation for patients that are not between the ages of 18 and 70, are , have extremes of body size, muscle mass, or nutritional status, or are non- or non-. According to the National Kidney Foundation, irrespective of diagnosis, the stage of the disease is based on the level of kidney function: Stage Description GFR(mL/min/1.73 m(2)) 1 Kidney damage with normal or decreased GFR 90 2 Kidney damage with mild decrease in GFR 60-89 3 Moderate decrease in GFR 30-59 4 Severe decrease in GFR 15-29 5 Kidney failure <15 (or dialysis) 31 Acute inflammation: >10.00 32 Result TnIDx:0.06 Called to [id number] at: 20:28:41 by:[id number] Read back by: [id number] 33 >100 to <200 pg/mL: likely compensated congestive heart failure (CHF) 200 to 400 pg/mL: likely moderate CHF >400 pg/mL: likely moderate to severe CHF 34 SEE RESULT BELOW Name: PATRICK CLEVELAND : [address]: Yoselin Malloy MD Acct: [id number] Unit: [id number] AGE: 86 Location: [place] [address] Re01/03/17 SEX: M Status: ADM IN SPEC: [id number] ZANA: 01/03/17 [facility] DR: Henrique Patel MD REQ: [id number] RECD: 01/03/17 STATUS: ZAIN MATUTE DR: Daniella Mcadams MD _ SOURCE: URINE SPDESC: ORDERED: Urine Culture Procedure Result Reported Site Urine Culture Final 01/04/17- 1621 ML No Growth (<1,000 CFU/mL) * ML - MAIN LAB (PSC1) . END OF REPORT * ML=Testing performed at Main Lab DEPARTMENT OF PATHOLOGY, [address] [place] [address] Gary Olson M.D. Director [facility] # [id number] 35 Because ethnic data is not always readily available, this report includes an eGFR for both -Americans and non- Americans. The National Kidney Disease Education Program (NKDEP) does not endorse the use of the MDRD equation for patients that are not between the ages of 18 and 70, are , have extremes of body size, muscle mass, or nutritional status, or are non- or non-. According to the National Kidney Foundation, irrespective of diagnosis, the stage of the disease is based on the level of kidney function: Stage Description GFR(mL/min/1.73 m(2)) 1 Kidney damage with normal or decreased GFR 90 2 Kidney damage with mild decrease in GFR 60-89 3 Moderate decrease in GFR 30-59 4 Severe decrease in GFR 15-29 5 Kidney failure <15 (or dialysis) 36 SEE RESULT BELOW Name: PATRICK CLEVELAND : 1930 Attend Dr: Ervin Villareal NP Acct: [id number] Unit: [id number] AGE: 86 Location: [facility] Re12/23/16 SEX: M Status: REG REF SPEC: [id number] ZANA: 12/23/16-[address]: Ervin Villareal NP REQ: [id number] RECD: 12/23/16 STATUS: RES _ SOURCE: STOOL SPDESC: ORDERED: E.coli O157:H7, C. diff PCR, Stool Culture, O P: Giar/Crypt Procedure Result Reported Site E.coli O157:H7 Culture PENDING Stool Culture PENDING Stool Specimen Description Final 12/23/16- 2040 ML Stool Color Reddish Brown Stool Form Nonformed Stool Consistency Blood-Tinged Shiga Toxin 1 2 Final 12/24/16- 1400 ML Organism 1 Negative Shiga Toxin 1 2 Immunochromatographic Assay C. difficile PCR Final 12/23/16- 2112 ML Organism 1 027 Presumptive NEGATIVE Organism 2 Toxigenic C.diff NEGATIVE O P: Giardia/Cryptospor Screen Final 12/25/16- 1019 ML Organism 1 Neg Cryptosporidium/Giardia Giardia and cryptosporidium antigen testing performed by enzyme immunoassay. If patient is immunocompromised or has traveled to or is from a developing country, a full ova and parasite exam with microscopic (OPMIC) is recommended. All samples will be held one month in case full ova and parasite testing is requested. Contact the Microbiology Department CONTINUED ON NEXT PAGE * ML=Testing performed at Main Lab DEPARTMENT OF PATHOLOGY, [address] [place] [address] Gary Olson M.D. Director [facility] # [id number] Patient: PATRICK CLEVELAND [id number] (Continued) Specimen: [id number] Collected: 12/23/16 Received: 12/23/16-1945 (Continued) Procedure Result Reported Site O P: Giardia/Cryptospor Screen Final (continued) 12/25/16- 1019 at [phone]. TEST LIMITATIONS: As with all diagnostic procedures, the results obtained should be used in conjunction with other clinical information available the physician, including confirmation by another method. Negative results can occur in samples containing antigen below lower limits of detection of the assay. One negative specimen does not rule out the possibility of a parasitic infection. To improve detection it is recommended that three specimens be collected on separate days over a period of not more than seven days. The use of colonic washes, aspirates or other diluted sample types has not been established and could affect the performance of the assay. Stool samples contaminated with an oily or particulate base (eg. Barium, mineral oil etc.) could interfere with the test and are not recommended. * ML - MAIN LAB ([facility]) . END OF REPORT * ML=Testing performed at Main Lab DEPARTMENT OF PATHOLOGY, [address] [place] [address] Gary Olson M.D. Director [facility] # [id number] 37 SEE RESULT BELOW Name: PATRICK CLEVELAND : [address]: Ervin Villareal NP Acct: [id number] Unit: [id number] AGE: 86 Location: [facility] Re12/23/16 SEX: M Status: REG REF SPEC: [id number] ZANA: 12/23/16-[address]: Ervin Villareal NP REQ: [id number] RECD: 12/23/16 STATUS: COMP _ SOURCE: STOOL SPDESC: ORDERED: E.coli O157:H7, C. diff PCR, Stool Culture, O P: Michelle/Crypt Procedure Result Reported Site E.coli O157:H7 Culture Final 12/25/16- 1232 ML E. coli 0157 Culture Negative Stool Culture Final 12/29/16- 1328 ML Organism 1 STAPHYLOCOCCUS AUREUS#2 Result No enteric pathogens isolated Testing for Salmonella, Shigella, Aeromonas, Plesiomonas, Yersinia and Campylobacter are included in a Stool Culture. Vibrio spp not routinely tested for in a stool culture. If testing is desired, please request specifically when placing test order. Sensitivities not routinely performed on stool isolates, as antibiotics may prolong the carriage rate of bacteria. Please contact the microbiology lab if sensitivities are required. 1. STAPHYLOCOCCUS AUREUS#2 M.I.C. RX --------- ------ Penicillin 0.12 S Clindamycin <=0.25 S Erythromycin <=0.25 S Gentamicin <=0.5 S Linezolid 2 S CONTINUED ON NEXT PAGE * ML=Testing performed at Main Lab DEPARTMENT OF PATHOLOGY, [address] [place] [address] Gary Olson M.D. Director [facility] # [id number] Patient: PATRICK CLEVELAND [id number] (Continued) Specimen: [id number] Collected: 12/23/16 Received: 12/23/16-1945 (Continued) Procedure Result Reported Site Stool Culture Final (continued) 12/29/16- 1328 1. STAPHYLOCOCCUS AUREUS#2 (continued) LacieISintiaC. RX --------- ------ Nitrofurantoin <=16 S Oxacillin 0.5 S * Quinupristin/Dalfopristin <=0.25 S Rifampin <=0.5 S Tetracycline <=1 S Doxycycline - Deduced S * Minocycline - Deduced S Trimethoprim/Sulfamethoxazole <=10 S Vancomycin 1 S Imipenem-Deduced S * Ampicillin/Sulbactam-Deduced S Cefazolin-Deduced S * These antibiotics are not available in the [facility] Formulary Contact the Microbiology Department for any additional antibiotic reporting. Stool Specimen Description Final 12/23/16- 2039 ML Stool Color Reddish Brown Stool Form Nonformed Stool Consistency Blood-Tinged Shiga Toxin 1 2 Final 12/24/16- 1400 ML Organism 1 Negative Shiga Toxin 1 2 Immunochromatographic Assay C. difficile PCR Final 12/23/16- 2112 ML Organism 1 027 Presumptive NEGATIVE CONTINUED ON NEXT PAGE * ML=Testing performed at Main Lab DEPARTMENT OF PATHOLOGY, [address] [place] [address] Gary Olson M.D. Director [facility] # [id number] Patient: PATRICK CLEVELAND [id number] (Continued) Specimen: [id number] Collected: 12/23/16 Received: 12/23/16 (Continued) Procedure Result Reported Site C. difficile PCR Final (continued) 12/23/16- 2112 Organism 2 Toxigenic C.diff NEGATIVE O P: Giardia/Cryptospor Screen Final 12/25/16- 1019 ML Organism 1 Neg Cryptosporidium/Giardia Giardia and cryptosporidium antigen testing performed by enzyme immunoassay. If patient is immunocompromised or has traveled to or is from a developing country, a full ova and parasite exam with microscopic (OPMIC) is recommended. All samples will be held one month in case full ova and parasite testing is requested. Contact the Microbiology Department at [phone]. TEST LIMITATIONS: As with all diagnostic procedures, the results obtained should be used in conjunction with other clinical information available the physician, including confirmation by another method. Negative results can occur in samples containing antigen below lower limits of detection of the assay. One negative specimen does not rule out the possibility of a parasitic infection. To improve detection it is recommended that three specimens be collected on separate days over a period of not more than seven days. The use of colonic washes, aspirates or other diluted sample types has not been established and could affect the performance of the assay. Stool samples contaminated with an oily or particulate base (eg. Barium, mineral oil etc.) could interfere with the test and are not recommended. * ML - MAIN LAB ([facility]) . END OF REPORT * ML=Testing performed at Main Lab DEPARTMENT OF PATHOLOGY, [address] [place] [address] Gary Olson M.D. Director [facility] # [id number] 38 >100 to <200 pg/mL: likely compensated congestive heart failure (CHF) 200 to 400 pg/mL: likely moderate CHF >400 pg/mL: likely moderate to severe CHF 39 Because ethnic data is not always readily available, this report includes an eGFR for both -Americans and non- Americans. The National Kidney Disease Education Program (NKDEP) does not endorse the use of the MDRD equation for patients that are not between the ages of 18 and 70, are , have extremes of body size, muscle mass, or nutritional status, or are non- or non-. According to the National Kidney Foundation, irrespective of diagnosis, the stage of the disease is based on the level of kidney function: Stage Description GFR(mL/min/1.73 m(2)) 1 Kidney damage with normal or decreased GFR 90 2 Kidney damage with mild decrease in GFR 60-89 3 Moderate decrease in GFR 30-59 4 Severe decrease in GFR 15-29 5 Kidney failure <15 (or dialysis) 40 Normal Range 180 to 914 Indeterminate Range 145 to 180 Deficient Range <145 41 Desirable <150 Borderline high 150-199 High 200-499 Very High >500 42 Desirable <200 Borderline high 200-239 High >239 43 Low <40 Desirable: 40-60 High: >60 44 Desirable: <100 mg/dL Near Optimal: 100-129 mg/dL Borderline High: 130-159 mg/dL High: 160-189 mg/dL Very High: >189 mg/dL Procedures Date Code Description Status 03/24/2018 74682 ECHO Transthoracic, Real-Time 2D With Doppler And Color Completed Flow 03/24/2018 97072 ECHO Transthoracic, Real-Time 2D With Doppler And Color Completed Flow 03/01/2018 90716 EKG Tracing & Interpretation Completed 08/05/2017 01996 EKG Tracing & Interpretation Completed 04/12/2017 74042 Holter Monitor Review (24 hr)dr review & interp only Completed 04/08/2017 92240 ECHO Transthorasic Realtime 2D W Doppler & Color Flow Hosp Completed 02/23/2017 14381 EKG Tracing & Interpretation Completed 01/04/2017 12039 EKG, Interpretation Only Completed 12/31/2016 96092 ECHO Transthoracic, Real-Time 2D With Doppler And Color Completed Flow 12/31/2016 53836 ECHO Transthoracic, Real-Time 2D With Doppler And Color Completed Flow 12/10/2016 55653 EKG Tracing & Interpretation Completed Encounters Type Date Location Provider Dx Diagnosis Office Visit 03/01/2018 [facility] Raudel Cortes R19.7 Diarrhea, 2:40p Brenda Mora unspecified D64.9 Anemia, unspecified I50.22 Chronic systolic (congestive) heart failure D50.9 Iron deficiency anemia, unspecified I42.9 Cardiomyopathy, unspecified I49.3 Ventricular premature depolarization E78.00 Pure hypercholesterolemia, unspecified I45.19 Other right bundle-branch block Office Visit 11/19/2017 1:20p [facility] Daniella R19.7 Diarrhea, Linda Garza M.D. unspecified [place] D64.9 Anemia, unspecified Office Visit 09/10/2017 2:30p [facility] Clarissa S. I50.22 Chronic systolic Of [facility] Demetrius Patel (congestive) heart failure D50.9 Iron deficiency anemia, unspecified I42.9 Cardiomyopathy, unspecified I49.3 Ventricular premature depolarization Office Visit 08/05/2017 [facility] Raudel Cortes I49.3 Ventricular 9:20a Cardiology Brenda Mora premature depolarization D50.9 Iron deficiency anemia, unspecified I50.22 Chronic systolic (congestive) heart failure I42.9 Cardiomyopathy, unspecified E78.00 Pure hypercholesterolemia, unspecified Office Visit 06/14/2017 4:00p [facility] Daniella R19.7 Diarrhea, Linda Garza M.D. unspecified [place] D64.9 Anemia, unspecified Office Visit 04/12/2017 2:20p [facility] Daniella D50.9 Iron deficiency Linda Garza M.D. anemia, [place] unspecified R19.7 Diarrhea, unspecified I50.22 Chronic systolic (congestive) heart failure R26.81 Unsteadiness on feet Office Visit 04/05/2017 10:30a [facility] Yoly Frias, I50.22 Chronic systolic [place] (congestive) heart failure I48.2 Chronic atrial fibrillation I34.0 Nonrheumatic mitral (valve) insufficiency Office Visit 02/23/2017 11:20a [facility] Raudel Cortes N18.9 Chronic kidney Brenda Mora disease, unspecified R94.31 Abnormal electrocardiogram [ECG] [EKG] I42.9 Cardiomyopathy, unspecified R06.02 Shortness of breath I34.0 Nonrheumatic mitral (valve) insufficiency I48.2 Chronic atrial fibrillation Office Visit 01/18/2017 11:40a [facility] Daniella 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 chronic Hospitalists combined systolic and diastolic hrt fail N18.9 Chronic kidney disease, unspecified R74.8 Abnormal levels of other serum enzymes Office Visit 01/05/2017 7:34a [facility] Yoselin Malloy I50.43 Acute on Assocmika M.D. chronic Hospitalists combined systolic and diastolic hrt fail N28.9 Disorder of kidney and ureter, unspecified R74.8 Abnormal levels of other serum enzymes Office Visit 01/04/2017 7:33a [facility] Yoselin Malloy, I50.43 Acute on mika Mccann M.D. chronic [facility] combined systolic and diastolic hrt fail N18.9 Chronic kidney disease, unspecified Office Visit 01/03/2017 [facility] Rliey Hopson I50.43 Acute on 7:32a mika Mccann II, M.D. chronic Hospitalists combined systolic and diastolic hrt fail N18.9 Chronic kidney disease, unspecified R74.8 Abnormal levels of other serum enzymes Office Visit 12/28/2016 11:00a [facility] Yoly Frias, I50.9 Heart failure, [place] unspecified R60.9 Edema, unspecified R53.1 Weakness Office Visit 12/21/2016 1:20p [facility] Ervin Mono, I50.9 Heart failure, Medicine - [employer] unspecified [place] R19.7 Diarrhea, unspecified L89.309 Pressure ulcer of unspecified buttock, unspecified stage R53.1 Weakness R26.9 Unspecified abnormalities of gait and mobility Office Visit 12/10/2016 [facility] Raudel Cortes I42.9 Cardiomyopathy, 2:00p Cardiology Brenda Mora unspecified R60.9 Edema, unspecified I50.9 Heart failure, unspecified R06.00 Dyspnea, unspecified E78.5 Hyperlipidemia, unspecified I45.10 Unspecified right bundle-branch block R94.31 Abnormal electrocardiogram [ECG] [EKG] I49.3 Ventricular premature depolarization Plan of Treatment Future Appointment(s):08/15/2018 2:40 pm - Daniella Garza M.D. at [facility] - [id number]/18/2019 - Daniella Garza M.D.R19.7 Diarrhea, unspecifiedComments:Dr. Mroa prescribed Ferrousol for ironCheck for this prescription at the pharmacyStay on the Lactaid and probioticFollow up:4 months
--- OUTSIDE RECORDS SUMMARY | 2018-05-02 08:02 | XMS REPORT | Continuity of Care Document ---
:1930 External Reference #:[id number] Author Name Bri Sharma Care Team Providers Name Role Phone Daniella Garza MD Primary Care Physician Unavailable Payers Type Date Identification Numbers Payment Provider Subscriber Policy Number: [id number] Medicare Eugene Denmark PayID: [id number] [address] [place] [address] Expires: 2017 Policy Number: [id number] Medicare Eugene Denmark PayID: [id number] [address] [place] [address] Policy Number: [id number] [facility] PayID: [id number] [address] [place] [address] Expires: 2016 PayID: [id number] Medicare Eugene Denmark [address] [place] [address] Expires: 2016 PayID: [id number] [facility] [address] [address] [place], [place] [address] Advance Directives Type Date Description Status Comment [facility] 01/18/2017 [facility] Current and Verified Problems Date Description Provider [...] History Date Family Member(s) Problem(s) Comments Father SC Father due to SC () - at 58 yo Mother due to Natural Causes () - at 69 yo Siblings 3 Social History Type Date Description Comments Sex Unknown Marital Status 1998 Lives With Family dtr Sandra, and son-in-law Occupation [employer] Occupation Retired ETOH Use Denies alcohol use ETOH Use Denies alcohol use quit 1979 Tobacco Use Start: Unknown Patient is a former End: Unknown smoker Recreational Drug Use Denies Drug Use Tobacco Use Start: Unknown Patient is a former quit 1979 End: Unknown smoker Smoking Status Reviewed: 04/14/18 Patient is a former quit 1979 smoker [...] Metoprolol 12/28/ Active Tablets ER 25mg 90tabs 1/2 by Raudel Succinate ER 2016 24HR mouth [...] 135tab 1 tab by Daniella s mouth Cotton, wednesday M.D. and wednesday Diphenoxylate- / Active Tablets 2.5-0.025m 180tab take 1 to Daniella Atropine 0000 g s 2 by mouth Cotton, three M.D. times a day as needed for diarrhea; maximum daily dose=6 Lomotil 02/19/ Hx Tablets 2.5-0.025m 120tab take one Daniella 2016 - g s tablet by Greg, 07/06/ mouth M.D. 2017 every 6 hours as needed; maximum daily dose=4 Imodium A-D 02/15/ Hx Liquid 1mg/7.5ML As Daniella 2016 - directed. rGeg, 02/19/ M.D. 2017 Rosuvastatin 12/22/ Hx Tablets 20mg 90tabs take [...] Unknown 0000 - every day 2017 Digestive 00/00/ Hx Capsules daily Unknown Advantage 0000 - 2016 Iron / Hx Tablets 325(65Fe) 1 by mouth Unknown 0000 - mg every day 2017 Immunizations Description No Information Available Vital Signs Date Vital Result Comment 04/14/2018 2:18pm Height 73 inches 6'1" Weight [...] H/L Range Note Lipid Profile 04/14/2018 [facility] Triglycerides 83 mg/dL 1 (Trig/Chol/HDL) [address] [place] [address] [phone] Cholesterol 140 mg/dL 2 HDL Cholesterol 50.5 mg/dL 3 LDL Cholesterol 73 mg/dL 4 Lipid Panel - 04/12/2018 [facility] Creatine 83 U/L N 10-[address] Kinase([place]) [place] [address] [phone] Comp Metabolic 04/12/2018 [facility] Sodium 137 N 135-[address] mmol/[place] [address] [phone] Potassium 4.9 mmol/L N 3.5-5.0 Chloride 103 [...] >60 5 CBC Auto Diff 04/12/2018 [facility] White Blood 5.9 10^3/uL N 3.5-10.[address] [place] [address] [phone] Red Blood Count 3.07 10^6/uL Low 4.00-5.40 [...] Cells % 0 Laboratory test 04/12/2018 [facility] B-Type 440 pg/mL High <= [address] [place] [address] Peptide BNP [phone] Iron & Iron 04/12/2018 [facility] Iron 49 g/dL Low 50-[address] [place] [address] [phone] Unsaturated Iron Binding < 404 g/dL Total Iron Binding Capacity 419 g/dL N 250-450 Transferrin 299 mg/dL N 203-362 % Iron Saturation 12 % Low 15-55 Vitamin B12 04/12/2018 [facility] Vitamin B12 > 1450 pg/mL High 180-914 6 [address] Folate [address] [place] [address] [phone] Folic Acid (Folate) > 20.00 ng/mL >3.99 Laboratory test 04/12/2018 [facility] Digoxin 0.5 ng/ml Low 0.8-2.[address] [place] [address] [phone] Laboratory test 01/04/2018 [facility] B-Type 305 pg/mL High [address] [place] [address] Peptide BNP [phone] CBC Auto Diff 01/04/2018 [facility] White Blood 5.6 N 3.5- 10.[address] Count 10^3/[place] [address] [phone] Red Blood Count 3.03 10^6/uL Low 4.00-5.40 [...] % 0.1 Comp Metabolic Panel 01/04/2018 [facility] Sodium 138 mmol/L N 135-[address] [place] [address] [phone] Potassium 4.7 mmol/L N 3.5-5.0 Chloride 106 [...] 47.8 >60 8 Laboratory test 01/04/2018 [facility] Creatine 64 U/L N 10- [address] Kinase(CK) [place] [address] [phone] Troponin-I (TnI) 0.03 ng/mL <0.04 Inr/Protime 01/04/2018 [facility] Inr 0.90 N 0.77-1.[address] [place], [place] [address] [phone] Laboratory test 01/04/2018 [facility] Partial 29.4 N 26.0- 36.[address] [place] [address] PTT [phone] Urine Culture And 01/04/2018 [facility] Urine SEE RESULT [address] [place] [address] [phone] Urinalysis Profile 01/04/2018 [facility] Urine Color Yellow [address] [place] [address] [phone] Urine Appearance Cloudy Urine Specific Conway 1.013 N 1.010-1.030 Urine pH 5.0 N [...] Present Abnormal Absent Stool Occult 01/04/2018 [facility] Stool Occult SEE RESULT 10 Blood, Screen [address] Blood, [place] [address] [phone] CBC Auto Diff 12/30/2017 [facility] White Blood 6.8 10^3/uL N 3.5-10. [address] Count 8 [place], [place] [phone] Red Blood Count 2.94 10^6/uL Low 4.00-5.40 [...] % 0.1 Basic Metabolic Panel 12/30/2017 [facility] Sodium 138 mmol/L N 135-145 [address] [place] [address] [phone] Potassium 5.0 mmol/L N 3.5-5.0 Chloride 106 [...] 11 Iron & Iron Binding 12/30/2017 [facility] Iron 69 g/dL N 50- 212 Capacity [address] [place] [address] [phone] Unsaturated Iron Binding 315 g/dL Total Iron Binding Capacity 384 g/dL N 250-450 Transferrin 274 mg/dL N 203-362 % Iron Saturation 18 % N 15-55 Laboratory test 12/30/2017 [facility] Vitamin B12 > 1450 High 180-914 12 finding 101 [facility] pg/mL [place], [place] [phone] Comp Metabolic 10/08/2017 [facility] Sodium 139 mmol/L N 135- 145 Panel [address] [place] [address] [phone] Chloride 104 mmol/L N 101-111 Co2 Carbon [...] 2-11 Iron & Iron Binding 10/08/2017 [facility] Iron 35 g/dL Low 50-[address] [place] [address] [phone] Unsaturated Iron Binding 372 g/dL Total Iron Binding Capacity 407 g/dL N 250-450 Transferrin 291 mg/dL N 203-362 % Iron Saturation 9 % Low 15-55 CBC Auto Diff 10/08/2017 [facility] White Blood 7.3 10^3/uL N 3.5-10.[address] [place] [address] [phone] Red Blood Count 2.97 10^6/uL Low 4.00-5.40 [...] % 0 Urine Culture And 08/11/2017 [facility] Urine SEE RESULT [address] [place] [address] [phone] Iron & Iron Binding 08/05/2017 [facility] Iron 35 g/dL Low 50-[address] 2 [place] [address] [phone] Unsaturated Iron Binding 381 g/dL Total Iron Binding Capacity 416 g/dL N 250-450 Transferrin 297 mg/dL N 203-362 % Iron Saturation 8 % Low 15-55 CBC Auto Diff 08/05/2017 [facility] White Blood 7.6 10^3/uL N 3.5-10.[address] [place] [address] [phone] Red Blood Count 3.00 10^6/uL Low 4.0-5.4 [...] Cells % 0 Laboratory test 08/05/2017 [facility] Digoxin 0.6 ng/ml Low 0.8-2.0 finding [address] [place] [address] [phone] Lipid Profile 08/05/2017 [facility] Triglycerides 69 mg/dL 15 (Trig/Chol/HDL) [address] [place] [address] [phone] Cholesterol 120 mg/dL 16 HDL Cholesterol 48.4 mg/dL 17 LDL Cholesterol 58 mg/dL 18 Comp Metabolic Panel 08/05/2017 [facility] Sodium 139 mmol/L N 139-[address] [place] [phone] Potassium 4.8 mmol/L N 3.5-5.0 Chloride 101 [...] 19 Lipid Panel - JFM 08/05/2017 [facility] Creatine 88 U/L N 10- 223 [facility] Kinase([place]) [place] [address] [phone] Urinalysis 08/04/2017 [facility] Urine Color Yellow Profile [address] [place] [address] [phone] Urine Appearance Cloudy Urine Specific [place] 1.008 Low 1.010-1.030 Urine pH 5.0 N [...] Abnormal Absent Urine Culture And 08/04/2017 [facility] Urine Culture SEE RESULT [address] [place] [address] [phone] Laboratory test 06/06/2017 [facility] C Reactive 4.62 mg/L N < [address] Protein 5.00 [place] [address] [phone] Comp Metabolic 06/06/2017 [facility] Sodium 136 mmol/L N 133- [address] [place] [address] [phone] Potassium 4.7 mmol/L N 3.5-5.0 Chloride 101 [...] Egfr 77.7 >60 22 Inr/Protime 06/06/2017 [facility] Inr 0.93 N 0.77-1.[address] [place] [address] [phone] CBC Auto Diff 06/06/2017 [facility] White Blood 7.9 10^3/uL N 3.5-10.[address] [place] [address] [phone] Red Blood Count 2.62 10^6/uL Low 4.0-5.4 [...] Cells % 0 Stool Occult 06/06/2017 [facility] Stool Occult SEE RESULT 23 Blood Diag [address] Blood, [place] [address] [phone] Lipid Panel - 04/08/2017 [facility] Creatine 72 U/L N 10-[address] Kinase([place]) [place] [address] [phone] Comp Metabolic 04/08/2017 [facility] Sodium 138 mmol/L N 133- [address] [place] [address] [phone] Potassium 4.7 mmol/L N 3.5-5.0 Chloride 101 [...] 61.9 >60 24 Lipid Profile 04/08/2017 [facility] Triglycerides 63 mg/dL 25 (Trig/Chol/HDL) [address] [place] [address] [phone] Cholesterol 127 mg/dL 26 HDL Cholesterol 49.7 mg/dL 27 LDL Cholesterol 65 mg/dL 28 CBC Auto Diff 04/08/2017 [facility] White Blood 8.6 10^3/uL N 3.5-10.[address] [place] [address] [phone] Red Blood Count 3.05 10^6/uL Low 4.0-5.4 [...] Cells % 0 Laboratory test 04/08/2017 [facility] Magnesium 2.3 mg/dL N 1.9-2.[address] [place] [address] [phone] Iron & Iron 04/08/2017 [facility] Iron 46 g/dL Low 50-[address] [place] [address] [phone] Unsaturated Iron Binding 307 g/dL Total Iron Binding Capacity 353 g/dL N 250-450 % Iron Saturation 13 % Low 15-55 CBC Auto Diff 01/03/2017 [facility] White Blood 5.9 10^3/uL N 3.5-10.8 [place] [address] [phone] Red Blood Count 4.04 10^6/uL N 4.0-5.4 [...] Cells % 0.1 N Inr/Protime 01/03/2017 [facility] Inr 1.06 N 0.89-1[place] [place] [address] [phone] Laboratory test 01/03/2017 [facility] Partial 22.8 Low 26.0- 36.[address] [place] [address] PTT [phone] Lactic Acid 1.1 mmol/L N 0.5-2.0 29 Comp Metabolic Panel 01/03/2017 [facility] Sodium 134 mmol/L N 133-[address] [place] [address] [phone] Potassium 4.5 mmol/L N 3.5-5.0 Chloride 100 [...] N >60 30 Laboratory test 01/03/2017 [facility] Magnesium 2.3 mg/dL N 1.9-2.[address] [place] [address] [phone] Lipase 31 U/L N 11.0-82.0 Creatine Kinase(CK) 37 U/L N 10-223 C Reactive Protein 23.65 mg/L High < 5.00 31 Troponin-I (TnI) 0.06 ng/mL High <0.04 32 CKMB 01/03/2017 [facility] CKMB ng/mL 3.0 ng/mL N 0.6-6.[address] [place] [address] [phone] Laboratory test 01/03/2017 [facility] TSH 2.72 N 0.34-5.[address] (Thyroid mcIU/[place] [address] Stim Vzci) [phone] B-Type Natriuretic Peptide BNP 6539 pg/mL High 33 Urinalysis Profile 01/03/2017 [facility] Urine Color Yellow N [address] [place] [address] [phone] Urine Appearance Clear N Urine Specific [place] 1.010 N 1.010-1.030 Urine pH 5.0 N [...] Abnormal Absent Urine Culture And 01/03/2017 [facility] Urine Culture SEE RESULT [address] [place] [address] [phone] CBC Auto Diff 12/25/2016 [facility] White Blood 6.9 10^3/uL N 3.5-[address] Count 0.8 [place] [address] [phone] Red Blood Count 4.27 10^6/uL N 4.0-5.4 [...] N Iron & Iron Binding 12/25/2016 [facility] Iron 27 g/dL Low 50-[address] [place] [address] [phone] Unsaturated Iron Binding 394 g/dL N Total Iron Binding Capacity 421 g/dL N 250-450 % Iron Saturation 6 % Low 15-55 Comp Metabolic Panel 12/25/2016 [facility] Sodium 139 mmol/L N 133-[address] [place] [address] [phone] Potassium 4.8 mmol/L N 3.5-5.0 Chloride 101 [...] N >60 35 Laboratory test 12/23/2016 [facility] C Difficile PCR SEE RESULT [address] [place] [address] [phone] E.Coli 0157:H7 SEE RESULT BELOW 37 Laboratory test 12/17/2016 [facility] B-Type 5689 pg/mL High [address] [place] [address] Peptide BNP [phone] Comp Metabolic 12/17/2016 [facility] Sodium 137 mmol/L N 133- [address] [place] [address] [phone] Potassium 4.8 mmol/L N 3.5-5.0 Chloride 101 [...] N 2-11 CBC Auto Diff 12/17/2016 [facility] White Blood 6.4 10^3/uL N 3.5-10.[address] Count [place], [place] [address] [phone] Red Blood Count 4.29 10^6/uL N 4.0-5.4 [...] % 0 N Vitamin B12 12/17/2016 [facility] Vitamin B12 1299 pg/mL High 180-914 40 And Folate [address] [place] [address] [phone] Folic Acid (Folate) > 20.00 ng/mL N >3.99 Laboratory test 12/17/2016 [facility] TSH (Thyroid 4.21 mcIU/mL N 0.34-5.[address] Stim [place]) [place] [address] [phone] Magnesium 2.2 mg/dL N 1.9-2.7 Lipid Profile 12/17/2016 [facility] Triglycerides 50 mg/dL N 41 (Trig/Chol/HDL) [address] [place] [address] [phone] Cholesterol 93 mg/dL N 42 HDL Cholesterol 47.5 mg/dL N 43 LDL Cholesterol 36 mg/dL N 44 Lipid Panel - 12/17/2016 [facility] Creatine Kinase(CK) 39 U/L N 10-[address] [place] [address] [phone] 1 Desirable: <150 Borderline High: 150-199 High: [...] (or dialysis) 9 SEE RESULT BELOW Name: PATRICK CLEVELAND : [address]: Artemio Coyne MD Acct: [id number] Unit: [id number] AGE: 87 Location: ED Re01/04/18 SEX: M Status: DEP ER SPEC: [id number] ZANA: 01/04/18-[address]: Felicita GRAVES REQ: [id number] RECD: 01/04/18 STATUS: ZAIN MATUTE DR: Daniella Coyne MD _ SOURCE: URINE [facility]: ORDERED: Urine Culture Procedure Result Reported Site Urine Culture Final 01/06/18- 0800 ML Organism 1 KLEBSIELLA OXYTOCA [place] Count >100,000 (Many) CFU/ML 1. KLEBSIELLA OXYTOCA [...] . END OF REPORT DEPARTMENT OF PATHOLOGY, [address] [place] [address] Gary Olson M.D. Director [facility] # [id number] 10 SEE RESULT BELOW Name: PATRICK CLEVELAND : [address]: Artemio Coyne MD Acct: [id number] Unit: [id number] AGE: 87 Location: ED Re01/04/18 SEX: M Status: REG ER SPEC: [id number] ZANA: 01/04/[address]: Felicita GRAVES REQ: [id number] RECD: 01/04/18 STATUS: ZAIN MATUTE DR: Daniella Coyne MD _ SOURCE: STOOL SPDESC: ORDERED: Occult Bl, Scn Procedure Result Reported Site Stool Occult Blood (1) Final 01/04/18- 1331 ML Stool Occult Blood Negative * ML - Main Lab . END OF REPORT DEPARTMENT OF PATHOLOGY, [address] [place] [address] Gary Olson M.D. Director [facility] # [id number] 11 Because ethnic data is not always [...] [address]: Ervin Villareal NP Acct: [id number] Unit: [id number] AGE: 86 Location: [facility] Re08/11/17 SEX: M Status: REG REF SPEC: [id number] ZANA: 08/11/17-[address] [facility] [address]: Ervin Villareal NP REQ: [id number] RECD: 08/12/17151 STATUS: COMP _ SOURCE: URINE SPDESC: ORDERED: Urine Culture Procedure Result Reported Site Urine Culture Final 08/13/17- 1245 ML Mixed bucky; possible contamination. Suggest resubmission. * ML - Main Lab . END OF REPORT DEPARTMENT OF PATHOLOGY, [address] [place] [address] Gary Olson M.D. Director [facility] # [id number] 15 Desirable: <150 Borderline High: 150-199 High: [...] [address]: Ervin Villareal NP Acct: [id number] Unit: [id number] AGE: 86 Location: [facility] Re08/04/17 SEX: M Status: REG REF SPEC: [id number] ZANA: 08/04/17-15[address] [facility] [address]: Ervin Villareal NP REQ: [id number] RECD: 08/04/17 STATUS: COMP _ SOURCE: URINE SPDESC: ORDERED: Urine Culture Procedure Result Reported Site Urine Culture Final 08/05/17- 1350 ML Mixed bucky; possible contamination. Suggest resubmission. * ML - Main Lab . END OF REPORT DEPARTMENT OF PATHOLOGY, [address] [place] [address] Gary Olson M.D. Director [facility] # [id number] 21 Acute inflammation: >10.00 22 Because ethnic [...] (or dialysis) 23 SEE RESULT BELOW Name: PATRICK CLEVELAND : [address]: Artemio Coyne MD Acct: [id number] Unit: [id number] AGE: 86 Location: ED Re06/06/17 SEX: M Status: DEP ER SPEC: [id number] ZANA: 06/06/17 [facility] [address]: Artemio Coyne MD REQ: [id number] RECD: 06/06/17 STATUS: ZAIN MATUTE DR: Daniella [place] MD _ SOURCE: STOOL SPDESC: ORDERED: Occult Bl, Robin Benson PCR, Stool Culture, Fecal Lactoferr Procedure Result [...] CONTINUED ON NEXT PAGE DEPARTMENT OF PATHOLOGY, [address] [place] [address] Gary Olson M.D. Director [facility] # [id number] Patient: PATRICK CLEVELAND [id number] (Continued) Specimen: [id number] Collected: 06/06/17 Received: 06/06/17 (Continued) Procedure Result Reported Site Shiga Toxin 1 2 Final (continued) 06/07/17- 1212 C. difficile PCR Final 06/06/17- 2024 ML [...] Stool Occult Blood Positive * ML - Main Lab . END OF REPORT DEPARTMENT OF PATHOLOGY, [address] [place] [address] Gary Olson M.D. Director [facility] # [id number] 24 Because ethnic data is not always [...] inflammation: >10.00 32 Result TnIDx:0.06 Called to [id number] at: 20:28:41 by:[id number] Read back by: [id number] 33 >100 to <200 pg/mL: likely compensated congestive heart failure (CHF) 200 to 400 pg/mL: likely moderate CHF >400 pg/mL: likely moderate to severe CHF 34 SEE RESULT BELOW Name: PATRICK CLEVELAND : [address]: Yoselin Malloy MD Acct: [id number] Unit: [id number] AGE: 86 Location: [place] [address] Re01/03/17 SEX: M Status: ADM IN SPEC: [id number] ZANA: 01/03/17 [facility] [address]: Henrique Patel MD REQ: [id number] RECD: 01/03/17 STATUS: ZAIN MATUTE DR: Daniella Mcadams MD _ SOURCE: URINE SPDESC: ORDERED: Urine Culture Procedure Result Reported Site Urine Culture Final 01/04/17- 1621 ML No Growth (<1,000 CFU/mL) * ML - MAIN LAB ([facility]) . END OF REPORT * ML=Testing performed at Main Lab DEPARTMENT OF PATHOLOGY, [address] [place] [address] Gary Olson M.D. Director [facility] # [id number] 35 Because ethnic data is not always [...] [address]: Ervin Villareal NP Acct: [id number] Unit: [id number] AGE: 86 Location: [facility] Re12/23/16 SEX: M Status: REG REF SPEC: [id number] ZANA: 12/23/[address]: Ervin Villareal NP REQ: [id number] RECD: 12/23/16 STATUS: RES _ SOURCE: STOOL SPDESC: ORDERED: E.coli O157:H7, C. diff PCR, Stool Culture, O P: Giar/Crypt Procedure Result Reported Site E.coli O157:H7 Culture PENDING Stool Culture PENDING Stool Specimen Description Final 12/23/16- 2039 ML [...] performed at Main Lab DEPARTMENT OF PATHOLOGY, [address] [place] [address] Gary Olson M.D. Director [facility] # [id number] Patient: PATRICK CLEVELAND [id number] (Continued) Specimen: [id number] Collected: 12/23/16-1699 Received: 12/23/16 (Continued) Procedure Result Reported Site O P: Giardia/Cryptospor Screen Final (continued) 12/25/16- 1019 at [phone]. TEST LIMITATIONS: As with all diagnostic procedures, [...] not recommended. * ML - MAIN LAB ([facility]) . END OF REPORT * ML=Testing performed at Main Lab DEPARTMENT OF PATHOLOGY, [address] [place] [address] Gary Olson M.D. Director [facility] # [id number] 37 SEE RESULT BELOW Name: PATRICK CLEVELAND : [address]: Ervin Villareal NP Acct: [id number] Unit: [id number] AGE: 86 Location: [facility] Re12/23/16 SEX: M Status: REG REF SPEC: [id number] ZANA: 12/23/16-[address]: Ervin Villareal NP REQ: [id number] RECD: 12/23/16 STATUS: COMP _ SOURCE: STOOL [...] performed at Main Lab DEPARTMENT OF PATHOLOGY, [address] [place] [address] Gary Olson M.D. Director [facility] # [id number] Patient: PATRICK CLEVELAND [id number] (Continued) Specimen: [id number] Collected: 12/23/16 Received: 12/23/16 (Continued) Procedure Result Reported Site Stool Culture Final (continued) 12/29/16- 1328 1. STAPHYLOCOCCUS AUREUS#2 (continued) M.I.C. RX --------- ------ Nitrofurantoin <=16 S Oxacillin 0.5 S * Quinupristin/Dalfopristin <=0.25 S Rifampin <=0.5 S Tetracycline <=1 S Doxycycline - Deduced S * Minocycline - Deduced S Trimethoprim/Sulfamethoxazole <=10 S Vancomycin 1 S Imipenem-Deduced S * Ampicillin/Sulbactam-Deduced S Cefazolin-Deduced S * These antibiotics are not available in the [facility] Formulary Contact the Microbiology Department for any [...] performed at Main Lab DEPARTMENT OF PATHOLOGY, [address] [place] [address] Gary Olson M.D. Director [facility] # [id number] Patient: PATRICK CLEVELAND [id number] (Continued) Specimen: [id number] Collected: 12/23/16-1699 Received: 12/23/16 (Continued) Procedure Result Reported Site [...] is requested. Contact the Microbiology Department at [phone]. TEST LIMITATIONS: As with all diagnostic procedures, [...] not recommended. * ML - MAIN LAB ([facility]) . END OF REPORT * ML=Testing performed at Main Lab DEPARTMENT OF PATHOLOGY, [address] [place] [address] Gary Olson M.D. Director [facility] # [id number] 38 >100 to <200 pg/mL: likely compensated [...] mg/dL Procedures Date Code Description Status 03/24/2018 53729 ECHO Transthoracic, Real-Time 2D With Doppler And Color Completed Flow 03/24/2018 98569 ECHO Transthoracic, Real-Time 2D With Doppler And Color Completed Flow 03/01/2018 55704 EKG Tracing & Interpretation Completed 08/05/2017 52651 EKG Tracing & Interpretation Completed 04/12/2017 13969 Holter Monitor Review (24 hr)dr review & interp only Completed 04/08/2017 05215 ECHO Transthorasic Realtime 2D W Doppler & Color Flow Hosp Completed 02/23/2017 35157 EKG Tracing & Interpretation Completed 01/04/2017 35527 EKG, Interpretation Only Completed 12/31/2016 84674 ECHO Transthoracic, Real-Time 2D With Doppler And Color Completed Flow 12/31/2016 62829 ECHO Transthoracic, Real-Time 2D With Doppler And Color Completed Flow 12/10/2016 86039 EKG Tracing & Interpretation Completed Encounters Type Date Location Provider Dx Diagnosis Office Visit 03/01/2018 [facility] Raudel Cortes R19.7 Diarrhea, 2:40p Brenda Mora unspecified D64.9 Anemia, unspecified I50.22 Chronic systolic (congestive) heart failure D50.9 Iron deficiency anemia, unspecified I42.9 Cardiomyopathy, unspecified I49.3 Ventricular premature depolarization E78.00 Pure hypercholesterolemia, unspecified I45.19 Other right bundle-branch block Office Visit 11/19/2017 1:20p [facility] Internal Daniella R19.7 Diarrhea, Linda Garza M.D. unspecified [place] D64.9 Anemia, unspecified Office Visit 09/10/2017 2:30p [facility] Clarissa SSintia I50.22 Chronic systolic Of [facility] Foster, N.P. (congestive) heart failure D50.9 Iron deficiency anemia, unspecified I42.9 Cardiomyopathy, unspecified I49.3 Ventricular premature depolarization Office Visit 08/05/2017 [facility] Raudel Cortes I49.3 Ventricular 9:20a Cardiology Brenda Mora premature depolarization D50.9 Iron deficiency anemia, unspecified I50.22 Chronic systolic (congestive) heart failure I42.9 Cardiomyopathy, unspecified E78.00 Pure hypercholesterolemia, unspecified Office Visit 06/14/2017 4:00p [facility] Daniella R19.7 Diarrhea, Linda Garza M.D. unspecified [place] D64.9 Anemia, unspecified Office Visit 04/12/2017 2:20p [facility] Daniella D50.9 Iron deficiency Linda Garza M.D. anemia, [place] unspecified R19.7 Diarrhea, unspecified I50.22 Chronic systolic (congestive) heart failure R26.81 Unsteadiness on feet Office Visit 04/05/2017 10:30a [facility] Yoly Frias, I50.22 Chronic systolic PA (congestive) heart failure I48.2 Chronic atrial fibrillation I34.0 Nonrheumatic mitral (valve) insufficiency Office Visit 02/23/2017 11:20a [facility] Raudel Cortes N18.9 Chronic kidney Brenda Mora disease, unspecified R94.31 Abnormal electrocardiogram [ECG] [EKG] I42.9 Cardiomyopathy, unspecified R06.02 Shortness of breath I34.0 Nonrheumatic mitral (valve) insufficiency I48.2 Chronic atrial fibrillation Office Visit 01/18/2017 11:40a [facility] Daniella I50.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 R19.7 Diarrhea, unspecified Office Visit 01/06/2017 7:34a [facility] Yoselin Malloy I50.43 Acute on Assoc,mika Gutierrez chronic Hospitalists combined systolic and diastolic hrt fail N18.9 Chronic kidney disease, unspecified R74.8 Abnormal levels of other serum enzymes Office Visit 01/05/2017 7:34a [facility] Yoselin Malloy, I50.43 Acute on Assoc,mika Gutierrez chronic Hospitalists combined systolic and diastolic hrt fail N28.9 Disorder of kidney and ureter, unspecified R74.8 Abnormal levels of other serum enzymes Office Visit 01/04/2017 7:33a [facility] Yoselin Malloy, I50.43 Acute on Assoc,mika Gutierrez chronic Hospitalists combined systolic and diastolic hrt fail N18.9 Chronic kidney disease, unspecified Office Visit 01/03/2017 [facility] Riley Hopson I50.43 Acute on 7:32a mika Mccann II, M.D. chronic Hospitalists combined systolic and diastolic hrt fail N18.9 Chronic kidney disease, unspecified R74.8 Abnormal levels of other serum enzymes Office Visit 12/28/2016 11:00a [facility] Yolysarah Alvaradois, I50.9 Heart failure, [place] unspecified R60.9 Edema, unspecified R53.1 Weakness Office Visit 12/21/2016 1:20p [facility] Ervin Mono, I50.9 Heart failure, Medicine - [employer] unspecified [place] R19.7 Diarrhea, unspecified L89.309 Pressure ulcer of unspecified buttock, unspecified stage R53.1 Weakness R26.9 Unspecified abnormalities of gait and mobility Office Visit 12/10/2016 [facility] Raudel Cortes I42.9 Cardiomyopathy, 2:00p Cardiology Brenda Mora unspecified R60.9 Edema, unspecified I50.9 Heart failure, unspecified R06.00 Dyspnea, unspecified E78.5 Hyperlipidemia, unspecified I45.10 Unspecified right bundle-branch block R94.31 Abnormal electrocardiogram [ECG] [EKG] I49.3 Ventricular premature depolarization Plan of Treatment Future Appointment(s):04/15/2018 2:20 pm - Daniella Garza M.D. at [facility] - Hzpffvbyg67/17/2019 - Clarissa Patel N.P.I42.9 Cardiomyopathy, jokhrnffasnX87.0 Nonrheumatic mitral (valve) vnlvlnewugmgrG84.22 Chronic systolic (congestive) heart failureFollow up:BRENDON Romo 2mo [facility] 07/2018Recommendations:Decrease Furosemide to 1 tab 2x week. Call if any increase in weight gain or swelling.D64.9 Anemia, ulweqnbwanoW17.00 Pure hypercholesterolemia, aghspgiucgtM02.19 Other right bundle-branch block
--- NOTE | 2018-05-02 09:16 | ED ---
Laceration/Wound HPI - HPI Summary HPI Summary: Patient is an 87-year-old male presenting to the ED after a head injury after hitting his head on the bedpost while getting out of bed 45 minutes [place]COOPER. Patient arrives with daughter. He denies any LOC, headache, visual changes, blurry vision, double vision, memory loss or confusion. Patient is on a blood thinners. Patient states he did not really hit his head, however "scraped the top of my head." He denies any symptoms or other concerns. Bleeding is well controlled on arrival. - History of Current Complaint Stated Complaint: FALL/HEAD INJURY Time Seen by Provider: 05/02/18 07:52 Hx Obtained From: Patient, Family/[employer] Mechanism of Injury: Sharp/Blunt Trauma Onset/Duration: Sudden Onset Aggravating: Movement Alleviating: Compression Timing: Constant Onset Severity: Mild Current Severity: None Pain Intensity: 0 Pain Scale Used: 0-10 Numeric - Additional Pertinent History Primary Care Physician: CHIVO - Allergy/Home Medications Allergies/Adverse Reactions: Allergies Allergy/AdvReac Type Severity Reaction Status Date / Time shellfish derived Allergy Hives Verified 05/02/18 07:42 Home Medications: Home Medications Furosemide TAB* [Lasix TAB*] 80 mg PO DAILY 05/02/18 [History Confirmed 05/02/18 ] PMH/Surg Hx/FS Hx/Imm Hx Previously Healthy: Yes Cardiovascular History: Reports: Hx Cardiac Arrest, Hx Congestive Heart Failure , Hx Coronary Artery Disease, Hx Hypercholesterolemia, Hx Hypertension Respiratory History: Reports: Other Respiratory Problems/Disorders - HX OF PLEURAL EFFUSION GI History: Reports: Hx Ulcer - stomach History: Reports: Hx Benign Prostatic Hyperplasia, Other Problems/ Disorders - urethral stricture Sensory History: Reports: Hx Cataracts, Hx Contacts or Glasses Denies: Hx Hearing Aid Opthamlomology History: Reports: Hx Cataracts, Hx Contacts or Glasses Neurological History: Reports: Hx Dementia Psychiatric History: Reports: Other Psychiatric Issues/Disorders - dementia - Surgical History Surgery Procedure, Year, and Place: Brain AVM SX - Immunization History Hx Pertussis Vaccination: No Immunizations Up to Date: Yes Infectious Disease History: No Infectious Disease History: Denies: Traveled Outside the [place] in Last 30 Days Comment Only: History Other Infectious Disease - recently diagnosed bladder infection - Family History Known Family History: Negative: Diabetes - Social History Occupation: Employed Full-time, Retired Lives: With Family Alcohol Use: None Hx Substance Use: No Substance Use Type: Reports: None Hx Tobacco Use: No Smoking Status (MU): Former Smoker Review of Systems Constitutional: Negative Negative: Fever, Chills, Fatigue, Skin Diaphoresis Negative: Palpitations, Chest Pain Negative: Shortness Of Breath, Cough Genitourinary: Negative Positive: no symptoms reported, see HPI Negative: Arthralgia, Myalgia Positive: Other - 3cm superificial laceration to top of head Neurological: Negative All Other Systems Reviewed And Are Negative: Yes Physical Exam Triage Information Reviewed: Yes Vital Signs On Initial Exam: Initial Vitals Temp Pulse Resp BP Pulse Ox 98.0 F 72 16 123/52 99 05/02/18 07:39 05/02/18 07:39 05/02/18 07:39 05/02/18 07:39 05/02/18 07:39 Vital Signs Reviewed: Yes Appearance: Positive: Well-Appearing, Well-Nourished Skin: Positive: Other - laceration Head/Face: Positive: Normal Head/Face Inspection Eyes: Positive: EOMI, Conjunctiva Clear Neck: Positive: Supple, No Lymphadenopathy Respiratory/Lung Sounds: Positive: Clear to Auscultation, Breath Sounds Present Cardiovascular: Positive: RRR, Pulses are Symmetrical in both Upper and Lower Extremities Musculoskeletal: Positive: Normal, Strength/ROM Intact Neurological: Positive: Speech Normal Psychiatric: Positive: Normal Diagnostics - Vital Signs Vital Signs Temp Pulse Resp BP Pulse Ox 05/02/18 08:10 98 F 72 16 123/52 99 05/02/18 07:39 98.0 F 72 16 123/52 99 - Laboratory Lab Statement: Any lab studies that have been ordered have been reviewed, and results considered in the medical decision making process. Laceration Repair Course/Dx - Course Course Of Treatment: On physical examination there is a 3 cm very superficial laceration to the top of the head. Patient states he scraped his head, did not hit his head. Denies any blood thinners. Denies any LOC. Denies any headache , confusion, memory loss or other changes. States he feels at his baseline. Bleeding is well controlled on arrival. There is no need for rock or sutures. One Steri-Strip to the top of the head with good effect. - Clinical Impression Provider Diagnoses: Laceration Discharge - Sign-Out/Discharge Documenting (check all that apply): Patient Departure Patient Received Moderate/Deep Sedation with Procedure: No - Discharge Plan Condition: Stable Disposition: HOME Referrals: Daniella Garza MD [Primary Care Provider] - Additional Instructions: Keep steri strips in place x 1 day Use a towel over the pillowcase - Billing Disposition and Condition Condition: STABLE Disposition: Home
== END 2018-05-02 08:10 | disposition home or self-care (01) ==
LOC: ED 07:37
DX: S01.01XA Laceration without foreign body of scalp, initial encounter (principal); W22.03XA Walked into furniture, initial encounter; Y92.003 Bedroom of unspecified non-institutional (private) residence as the place of occurrence of the external cause; I50.9 Heart failure, unspecified; Z91.013 Allergy to seafood; Z87.891 Personal history of nicotine dependence
CPT/HCPCS: 99282

== ENCOUNTER 2018-07-14 16:37 | Emergency (ER) | payer MEDICARE, BC ==
--- OUTSIDE RECORDS SUMMARY | 2018-07-14 17:03 | XMS REPORT | Continuity of Care Document ---
:1930 External Reference #:[id number] Author Name BuckleyMore wei Care Team Providers Name Role Phone Daniella Garza MD Primary Care Physician Unavailable Payers Date Identification Numbers Payment Provider Subscriber Policy Number: [id number] Medicare Eugene Denmark PayID: [id number] [address] [place] [address] Expires: 2017 Policy Number: [id number] Medicare Eugene Denmark PayID: [id number] [address] [place] [address] Policy Number: [id number] [facility] PayID: [id number] [address] [place] [address] Expires: 2016 PayID: [id number] Medicare Eugene Denmark [address] [place] [address] Expires: 2016 PayID: [id number] Blue Shield o [facility] [address] [address] [place] [address] Advance Directives Type Date Description Status Comment [facility] 01[facility]18/2017 [facility] Current and Verified Problems Date Description Provider [...] NP Active Family History Date Family Member(s) Observation Comments Father [place] Father due to [place] () - at 58 yo Mother due to Natural Causes () - at 69 yo Siblings 3 Social History Type Date Description Comments Sex Unknown Marital Status 1998 Lives With Family dtr Sandra, and son-in-law Occupation [employer] Retired ETOH Use Denies alcohol use ETOH Use Denies alcohol use quit 1979 Tobacco Use Start: Unknown Patient is a former End: Unknown smoker Recreational Drug Use Denies Drug Use Tobacco Use Start: Unknown Patient is a former quit 1979 End: Unknown smoker Smoking Status Reviewed: 06/16/18 Patient is a former quit 1979 smoker Exercise Type/Frequency Does not exercise Walks with walker at home as frequently as possible. Does stability exercises per prior PT teaching. Allergies, Adverse Reactions, Alerts Date Description Reaction Status Severity Comments 12/10/2016 NKDA Active 12/21/2016 Shrimp & Scallops hives Active Medications Medication Date Status Form Strength Qnty SIG Indications Ordering Provider Mucinex 06/16/ Active Tablets ER 600mg 30tabs 1 tab by Melquiades Swan 2018 12HR mouth 2x Foster, daily N.P. Donepezil HCL 05/04/ Active Tablets 10mg 30tabs 1 po qd 2018 Brenda Garza Ferrousul 04/12/ Active Tablets 325(65Fe) 180tab 1 tab by Raudel 2018 mg s mouth FSintia Mora, twice a M.D. day with some citrus juice but not with food. Rosuvastatin 08/18/ Active Tablets 5mg 90tabs 1 by mouth Raudel Calcium 2017 every FSintia Mora, night at M.D. bedtime Sertraline HCL 05/11/ Active Tablets 25mg 60tabs Take Two 2017 Tablets Cotton, By Mouth M.D. Every Day Digoxin 04/15/ Active Tablets 125mcg 30tabs 1 by mouth Raudel 2018 wednesday, Sebastian Mora, wednesday, MSintiaDSintia wednesday only Metoprolol 12/28/ Active Tablets ER 25mg 90tabs /2 by Raudel Succinate ER 2016 24HR mouth Sebastian Mora, twice M.D. daily Tamsulosin HCL 12/22/ Active Capsules 0.4mg 90caps 1 by mouth 2016 every day Brenda Garza Finasteride 12/22/ Active Tablets 5mg 90tabs Take One 2016 Tablet By Cotton, Mouth M.D. Every Day Jobst Active 12/10/ Active Misc 2Pair 1 pair R60.9 Raudel 15-20MMHG/Knee 2017 daily to Sebastian Mora, High/Closed legs. M.D. Toe/Medium please size patiennt. Oxygen 12/10/ Active Misc 2L 1units please use Raudel 2016 o2 at Sebastian Mora, 2l/min nc M.D. prn resp c/o Entresto / Active Tablets 24-26mg 60tabs 1 tablet Raudel 0000 by mouth Sebastian Mora, twice M.D. daily Vitamin B-12 / Active Tablets 1000mcg 1 by mouth Unknown 0000 every day Furosemide / Active Tablets 40mg 135tab 1 tab by Daniella 0000 s mouth Cotton, wednesday M.D. and wednesday [...] Hx Tablets 2.5-0.025m 120tab take one Daniella 2017 - g s tablet by Cotton, 07/06/ mouth M.D. 2017 every 6 hours as needed; maximum daily dose=4 Imodium A-D 02/15/ Hx Liquid 1mg/7.5ML As Daniella 2016 - directed. Greg, 02/19/ M.D. 2016 Donepezil HCL 12/22/ Hx Tablets 5mg 30tabs take one Daniella 2016 - tablet by Cotton, 05/04/ mouth M.D. 2018 every day Rosuvastatin 12/22/ Hx Tablets 20mg 90tabs take one Ervin Calcium 2016 - tablet by KRISSY Villareal 08/18/ mouth 2017 every day hold as of 5.10.18 Aldactone 12/10/ Hx Tablets 25mg 90tabs 1 tab by I42.9 Raudel 2017 - mouth Sebastian Denierika, 05/11/ every day M.DSintia 2018 Furosemide / Hx Tablets 40mg 1 by mouth Unknown 0000 - every day 01/07/ take extra 2017 dose at 2 pm on 9.15, 9 Metoprolol / Hx Tablets 25mg 1/2 by [...] Available Vital Signs Date Vital Result Comment 06/16/2018 3:23pm Height 73 inches 6'1" Heart Rate 76 /min BP Systolic Sitting 132 mmHg BP Diastolic Sitting 82 mmHg O2 % BldC Oximetry 97 % on 2L 04/15/2018 2:46pm Height 73 inches 6'1" Weight [...] Date Facility Test Result H/L Range Note Xray 06/16/2018 [facility] Chest PA & <pending> [address] [place] [address] [phone] Basic Metabolic 05/18/2018 [facility] Sodium 140 mmol/L N 135- [address] [place] [address] [phone] Potassium 5.0 mmol/L N 3.5-5.0 Chloride 107 mmol/L N 101-111 Co2 Carbon Dioxide 30 mmol/L N 22-32 Anion Gap 3 mmol/L N 2-11 Glucose 91 mg/dL N 70-100 Blood Urea Nitrogen 29 mg/dL High 6-24 Creatinine 1.39 mg/dL High 0.67-1.17 BUN/Creatinine Ratio 20.9 High 8-20 Calcium 8.4 mg/dL Low 8.6-10.3 Egfr Non- 48.4 >60 Egfr 58.6 >60 1 Basic Metabolic Panel 05/11/2018 [facility] Sodium 138 mmol/L N 135-[address] [place] [address] [phone] Chloride 106 mmol/L N 101-111 Co2 Carbon Dioxide 29 mmol/L N 22-32 Glucose 94 mg/dL N 70-100 Blood Urea Nitrogen 29 mg/dL High 6-24 Creatinine 1.36 mg/dL High 0.67-1.17 BUN/Creatinine Ratio 21.3 High 8-20 Calcium 9.0 mg/dL N 8.6-10.3 Egfr Non- 49.7 >60 Egfr 60.1 >60 2 Potassium 5.6 mmol/L High 3.5-5.0 Anion Gap 3 mmol/L N 2-11 Laboratory test 05/11/2018 [facility] B-Type Natriuretic 636 pg/ mL High <=[address] [place] [address] [phone] Lipid Profile 04/14/2018 [facility] Triglycerides 83 mg/dL 3 (Trig/Chol/HDL) [address] [place] [address] [phone] Cholesterol 140 mg/dL 4 HDL Cholesterol 50.5 mg/dL 5 LDL Cholesterol 73 mg/dL 6 Lipid Panel - 04/12/2018 [facility] Creatine 83 U/L N 10-[address] Kinase(CK) [place] [address] [phone] Comp Metabolic 04/12/2018 [facility] Sodium 137 N 135-[address] mmol/[place] [address] [phone] Potassium 4.9 mmol/L N 3.5-5.0 Chloride 103 [...] Egfr Non- 48.1 >60 Egfr 58.1 >60 7 CBC Auto Diff 04/12/2018 [facility] White Blood 5.9 10^3/uL N 3.5-10.[address] [place] [address] [phone] Red Blood Count 3.07 10^6/uL Low 4.00-5.40 [...] Blood Cells % 0 Laboratory test 04/12/2018 [facility] B-Type 440 pg/mL High <= [address] [place] [place] [address] Peptide BNP [phone] Iron & Iron 04/12/2018 [facility] Iron 49 g/dL Low 50-[address] Capacity [place], [place] [id number] [phone] Unsaturated Iron Binding < 404 g/dL Total Iron Binding Capacity 419 g/dL N 250-450 Transferrin 299 mg/dL N 203-362 % Iron Saturation 12 % Low 15-55 Vitamin B12 04/12/2018 [facility] Vitamin B12 > 1450 pg/mL High 180-914 8 [address] Folate [address] [place] [address] [phone] Folic Acid (Folate) > 20.00 ng/mL >3.99 Laboratory test 04/12/2018 [facility] Digoxin 0.5 ng/ml Low 0.8-2.[address] [place] [address] [phone] CBC Auto Diff 01/04/2018 [facility] White Blood 5.6 N 3.5- 10.[address] Count 10^3/[place] [address] [phone] Red Blood Count 3.03 10^6/uL Low 4.00-5.40 [...] Cells % 0.1 Comp Metabolic Panel 01/04/2018 [facility] Sodium 138 mmol/L N 135-145 [address] [place] [address] [phone] Potassium 4.7 mmol/L N 3.5-5.0 Chloride 106 [...] Egfr Non- 39.5 >60 Egfr 47.8 >60 9 Laboratory test 01/04/2018 [facility] Creatine 64 U/L N 10- 223 finding Kinase(CK) [place] [address] [phone] Troponin-I (TnI) 0.03 ng/mL <0.04 Inr/Protime 01/04/2018 [facility] Inr 0.90 N 0.77-1.02 [place] [address] [phone] Laboratory test 01/04/2018 [facility] Partial 29.4 N 26.0- 36.[address] [address] PTT [phone] Laboratory test 01/04/2018 [facility] B-Type 305 pg/mL High [address] [place] [address] Peptide BNP [phone] Urine Culture 01/04/2018 [facility] Urine Culture SEE [address] [place] [address] BELOW [phone] Urinalysis 01/04/2018 [facility] Urine [place] [address] [phone] Urine Appearance Cloudy Urine Specific [place] 1.013 N 1.010-1.030 Urine pH 5.0 N [...] Crystals Present Abnormal Absent Stool Occult 01/04/2018 [facility] Stool Occult SEE RESULT 12 Blood, Screen Blood, [place] [address] [phone] CBC Auto Diff 12/30/2017 [facility] White Blood 6.8 10^3/uL N 3.5-10. DRIVE Count 8 [place] [address] [phone] Red Blood Count 2.94 10^6/uL Low 4.00-5.40 [...] Cells % 0.1 Basic Metabolic Panel 12/30/2017 [facility] Sodium 138 mmol/L N 135-145 [address] [place] [address] [phone] Potassium 5.0 mmol/L N 3.5-5.0 Chloride 106 mmol/L N 101-111 Co2 Carbon Dioxide 29 mmol/L N 22-32 Anion Gap 3 mmol/L N 2-11 Glucose 169 mg/dL High 70-100 Blood Urea Nitrogen 33 mg/dL High 6-24 Creatinine 1.51 mg/dL High 0.67-1.17 BUN/Creatinine Ratio 21.9 High 8-20 Calcium 8.7 mg/dL N 8.6-10.3 Egfr Non- 44.0 >60 Egfr 53.3 >60 13 Iron & Iron Binding 12/30/2017 [facility] Iron 69 g/dL N 50- [address] [place] [address] [phone] Unsaturated Iron Binding 315 g/dL Total Iron Binding Capacity 384 g/dL N 250-450 Transferrin 274 mg/dL N 203-362 % Iron Saturation 18 % N 15-55 Laboratory test 12/30/2017 [facility] Vitamin B12 > 1450 High 180-914 [address] pg/[place] [address] [phone] Comp Metabolic 10/08/2017 [facility] Sodium 139 mmol/L N 135- [address] [place] [address] [phone] Chloride 104 mmol/L N 101-111 Co2 Carbon [...] Egfr Non- 45.9 >60 Egfr 55.5 >60 15 Potassium 5.2 mmol/L High 3.5-5.0 Anion Gap 4 mmol/L N 2-11 Iron & Iron Binding 10/08/2017 [facility] Iron 35 g/dL Low 50-[address] [place] [address] [phone] Unsaturated Iron Binding 372 g/dL Total Iron Binding Capacity 407 g/dL N 250-450 Transferrin 291 mg/dL N 203-362 % Iron Saturation 9 % Low 15-55 CBC Auto Diff 10/08/2017 [facility] White Blood 7.3 10^3/uL N 3.5-10.[address] [place] [address] [phone] Red Blood Count 2.97 10^6/uL Low 4.00-5.40 [...] Cells % 0 Urine Culture And 08/11/2017 [facility] Urine SEE RESULT [address] [place] [address] [phone] Iron & Iron Binding 08/05/2017 [facility] Iron 35 g/dL Low 50-[address] 2 [place] [address] [phone] Unsaturated Iron Binding 381 g/dL Total Iron Binding Capacity 416 g/dL N 250-450 Transferrin 297 mg/dL N 203-362 % Iron Saturation 8 % Low 15-55 CBC Auto Diff 08/05/2017 [facility] White Blood 7.6 10^3/uL N 3.5-10.[address] [place] [address] [phone] Red Blood Count 3.00 10^6/uL Low 4.0-5.4 [...] Blood Cells % 0 Laboratory test 08/05/2017 [facility] Digoxin 0.6 ng/ml Low 0.8-2.[address] [place] [address] [phone] Lipid Profile 08/05/2017 [facility] Triglycerides 69 mg/dL 17 (Trig/Chol/HDL) [address] [place] [address] [phone] Cholesterol 120 mg/dL 18 HDL Cholesterol 48.4 mg/dL 19 LDL Cholesterol 58 mg/dL 20 Comp Metabolic Panel 08/05/2017 [facility] Sodium 139 mmol/L N 139-145 [address] [place] [address] [phone] Potassium 4.8 mmol/L N 3.5-5.0 Chloride 101 [...] Egfr Non- 51.1 >60 Egfr 65.7 >60 21 Lipid Panel - JFM 08/05/2017 [facility] Creatine 88 U/L N 10- 223 [address] [facility] Kinase(CK) [place] [address] [phone] Urinalysis 08/04/2017 [facility] Urine Color Yellow Profile [address] [place] [address] [phone] Urine Appearance Cloudy Urine Specific [place] 1.008 Low 1.010-1.030 Urine pH 5.0 N [...] Present Abnormal Absent Urine Culture And 08/04/2017 [facility] Urine Culture SEE RESULT [address] [place] [address] [phone] Laboratory test 06/06/2017 [facility] C Reactive 4.62 mg/L N < [address] Protein 5.00 [place] [address] [phone] Comp Metabolic 06/06/2017 [facility] Sodium 136 mmol/L N 133- [address] 45 [place] [address] [phone] Potassium 4.7 mmol/L N 3.5-5.0 Chloride 101 [...] Egfr Non- 60.4 >60 Egfr 77.7 >60 24 Inr/Protime 06/06/2017 [facility] Inr 0.93 N 0.77-1.[address] [place] [address] [phone] CBC Auto Diff 06/06/2017 [facility] White Blood 7.9 10^3/uL N 3.5-10.[address] [place] [address] [phone] Red Blood Count 2.62 10^6/uL Low 4.0-5.4 [...] Blood Cells % 0 Stool Occult 06/06/2017 [facility] Stool Occult SEE RESULT [address] Blood, [place] [address] [phone] Iron & Iron 04/08/2017 [facility] Iron 46 g/dL Low 50-[address] [place] [address] [phone] Unsaturated Iron Binding 307 g/dL Total Iron Binding Capacity 353 g/dL N 250-450 % Iron Saturation 13 % Low 15-55 Laboratory test 04/08/2017 [facility] Magnesium 2.3 mg/dL N 1.9-2.[address] [place] [address] [phone] CBC Auto Diff 04/08/2017 [facility] White Blood 8.6 N 3.5- 10.[address] Count 10^3/[place] [address] [phone] Red Blood Count 3.05 10^6/uL Low 4.0-5.4 [...] 0-2 Nucleated Red Blood Cells % 0 Lipid Profile 04/08/2017 [facility] Triglycerides 63 mg/dL 26 (Trig/Chol/HDL) [address] [place] [address] [phone] Cholesterol 127 mg/dL 27 HDL Cholesterol 49.7 mg/dL 28 LDL Cholesterol 65 mg/dL 29 Comp Metabolic Panel 04/08/2017 [facility] Sodium 138 mmol/L N 133-145 [address] [place] [address] [phone] Potassium 4.7 mmol/L N 3.5-5.0 Chloride 101 [...] Egfr Non- 48.2 >60 Egfr 61.9 >60 30 Lipid Panel - 04/08/2017 [facility] Creatine 72 U/L N 10-[address] Kinase(CK) [place] [address] [phone] CBC Auto Diff 01/03/2017 [facility] White Blood Count 5.9 N 3.5-10.[address] 10^3/[place] [address] [phone] Red Blood Count 4.04 10^6/uL N 4.0-5.4 [...] Blood Cells % 0.1 N Inr/Protime 01/03/2017 [facility] Inr 1.06 N 0.89-1.[address] [place] [address] [phone] Laboratory test 01/03/2017 [facility] Partial 22.8 Low 26.0- 36.[address] [place] [address] PTT [phone] Lactic Acid 1.1 mmol/L N 0.5-2.0 31 Comp Metabolic Panel 01/03/2017 [facility] Sodium 134 mmol/L N 133-[address] [place] [address] [phone] Potassium 4.5 mmol/L N 3.5-5.0 Chloride 100 [...] 42.5 N >60 Egfr 54.7 N >60 32 Laboratory test 01/03/2017 [facility] Magnesium 2.3 mg/dL N 1.9-2.[address] [place] [address] [phone] Lipase 31 U/L N 11.0-82.0 Creatine Kinase(CK) 37 U/L N 10-223 C Reactive Protein 23.65 mg/L High < 5.00 33 Troponin-I (TnI) 0.06 ng/mL High <0.04 34 CKMB 01/03/2017 [facility] CKMB ng/mL 3.0 ng/mL N 0.6-6.[address] [place], [place] [phone] Laboratory test 01/03/2017 [facility] TSH 2.72 N 0.34-5.[address] (Thyroid mcIU/[place] [address] Stim Lyck) [phone] B-Type Natriuretic Peptide BNP 6539 pg/mL High 35 Urinalysis Profile 01/03/2017 [facility] Urine Color Yellow N [address] [place] [address] [phone] Urine Appearance Clear N Urine Specific [place] 1.010 N 1.010-1.030 Urine pH 5.0 N [...] Present Abnormal Absent Urine Culture And 01/03/2017 [facility] Urine Culture SEE RESULT [address] [place] [address] [phone] CBC Auto Diff 12/25/2016 [facility] White Blood 6.9 10^3/uL N 3.5-[address] Count 0.8 [place] [address] [phone] Red Blood Count 4.27 10^6/uL N 4.0-5.4 [...] 0 N Iron & Iron Binding 12/25/2016 [facility] Iron 27 g/dL Low 50-[address] [place] [address] [phone] Unsaturated Iron Binding 394 g/dL N Total Iron Binding Capacity 421 g/dL N 250-450 % Iron Saturation 6 % Low 15-55 Comp Metabolic Panel 12/25/2016 [facility] Sodium 139 mmol/L N 133-[address] [place] [address] [phone] Potassium 4.8 mmol/L N 3.5-5.0 Chloride 101 [...] 56.5 N >60 Egfr 72.6 N >60 37 Laboratory test 12/23/2016 [facility] C Difficile PCR SEE RESULT [address] [place] [address] [phone] E.Coli 0157:H7 SEE RESULT BELOW 39 Laboratory test 12/17/2016 [facility] B-Type 5689 pg/mL High [address] [place] [address] Peptide BNP [phone] Comp Metabolic 12/17/2016 [facility] Sodium 137 mmol/L N 133- [address] [place] [address] [phone] Potassium 4.8 mmol/L N 3.5-5.0 Chloride 101 [...] 55.9 N >60 Egfr 71.9 N >60 41 Co2 Carbon Dioxide 30 mmol/L N 22-32 Anion Gap 6 mmol/L N 2-11 CBC Auto Diff 12/17/2016 [facility] White Blood 6.4 10^3/uL N 3.5-10.[address] [place] [address] [phone] Red Blood Count 4.29 10^6/uL N 4.0-5.4 [...] Cells % 0 N Vitamin B12 12/17/2016 [facility] Vitamin B12 1299 pg/mL High 180-914 42 And Folate [address] Serum [place], [place] [address] [phone] Folic Acid (Folate) > 20.00 ng/mL N >3.99 Laboratory test 12/17/2016 [facility] TSH (Thyroid 4.21 mcIU/mL N 0.34-5.[address] Stim Horm) [place] [address] [phone] Magnesium 2.2 mg/dL N 1.9-2.7 Lipid Panel - 12/17/2016 [facility] Creatine Kinase(CK) 39 U/L N 10-[address] [place], [place] [address] [phone] Lipid Profile 12/17/2016 [facility] Triglycerides 50 mg/dL N 43 (Trig/Chol/HDL [address] ) [place], [place] [address] [phone] Cholesterol 93 mg/dL N 44 HDL Cholesterol 47.5 mg/dL N 45 LDL Cholesterol 36 mg/dL N 46 1 Because ethnic data is not always readily [...] 15-29 5 Kidney failure <15 (or dialysis) 2 Because ethnic data is not always readily [...] 15-29 5 Kidney failure <15 (or dialysis) 3 Desirable: <150 Borderline High: 150-199 High: 200-499 Very High: >500 4 Desirable: <200 Borderline High: 200-239 High: >239 5 Low: <40 Desirable: 40-60 High: >60 6 Desirable: <100 Near Optimal: 100-129 Borderline High: 130-159 High: 160-189 Very High: >189 7 Because ethnic data is not always readily [...] 15-29 5 Kidney failure <15 (or dialysis) 8 Normal Range 180 to 914 Indeterminate Range 145 to 180 Deficient Range <145 9 Because ethnic data is not always readily [...] 15-29 5 Kidney failure <15 (or dialysis) 10 >100 to <200 pg/mL: likely compensated congestive heart failure (CHF) 200 to 400 pg/mL: likely moderate CHF >400 pg/mL: likely moderate to severe CHF 11 SEE RESULT BELOW Name: PATRICK CLEVELAND : [address]: Artemio Coyne MD Acct: [id number] Unit: [id number] AGE: 87 Location: ED Re01/04/18 SEX: M Status: DEP ER SPEC: [id number] ZANA: 01/04/18-[address]: Felicita GRAVES REQ: [id number] RECD: 01/04/18 STATUS: ZAIN MATUTE DR: Daniella Coyne MD _ SOURCE: URINE [facility]: ORDERED: Urine Culture Procedure Result Reported Site Urine Culture Final 01/06/18- 0800 ML Organism 1 KLEBSIELLA OXYTOCA [place] Count >100,000 (Many) CFU/ML 1. KLEBSIELLA OXYTOCA [...] . END OF REPORT DEPARTMENT OF PATHOLOGY, [address] [place] [address] Gary Olson M.D. Director [facility] # [id number] 12 SEE RESULT BELOW Name: PATRICK CLEVELAND : [address]: Artemio Coyne MD Acct: [id number] Unit: [id number] AGE: 87 Location: ED Re01/04/18 SEX: M Status: REG ER SPEC: [id number] ZANA: 01/04/[address]: Felicita GRAVES REQ: [id number] RECD: 01/04/18 STATUS: ZAIN MATUTE DR: Daniella Coyne MD _ SOURCE: STOOL SPDESC: ORDERED: Occult Bl, Scn Procedure Result Reported Site Stool Occult Blood (1) Final 01/04/18- 1331 ML Stool Occult Blood Negative * ML - Main Lab . END OF REPORT DEPARTMENT OF PATHOLOGY, [address] [place] [address] Gary Olson M.D. Director [facility] # [id number] 13 Because ethnic data is not always [...] 5 Kidney failure <15 (or dialysis) 14 Normal Range 180 to 914 Indeterminate Range 145 to 180 Deficient Range <145 15 Because ethnic data is not always readily [...] 15-29 5 Kidney failure <15 (or dialysis) 16 SEE RESULT BELOW Name: PATRICK CLEVELAND : [address]: Ervin Villareal NP Acct: [id number] Unit: [id number] AGE: 86 Location: [facility] Re08/11/17 SEX: M Status: REG REF SPEC: [id number] ZANA: 08/11/17-[address] [facility] [address]: Ervin Villareal NP REQ: [id number] RECD: 08/12/17910 STATUS: COMP _ SOURCE: URINE SPDC: ORDERED: Urine Culture Procedure Result Reported Site Urine Culture Final 08/13/17- 1245 ML Mixed bucky; possible contamination. Suggest resubmission. * ML - Main Lab . END OF REPORT DEPARTMENT OF PATHOLOGY, [address] [place] [address] Gary Olson M.D. Director [facility] # [id number] 17 Desirable: <150 Borderline High: 150-199 High: 200-499 Very High: >500 18 Desirable: <200 Borderline High: 200-239 High: >239 19 Low: <40 Desirable: 40-60 High: >60 20 Desirable: <100 Near Optimal: 100-129 Borderline High: 130-159 High: 160-189 Very High: >189 21 Because ethnic data is not always readily [...] 15-29 5 Kidney failure <15 (or dialysis) 22 SEE RESULT BELOW Name: PATRICK CLEVELAND : [address]: Ervin Villareal NP Acct: [id number] Unit: [id number] AGE: 86 Location: [facility] Re08/04/17 SEX: M Status: REG REF SPEC: [id number] ZANA: 08/04/17-[address] [facility] [address]: Ervin Villareal NP REQ: [id number] RECD: 08/04/17 STATUS: COMP _ SOURCE: URINE SPDESC: ORDERED: Urine Culture Procedure Result Reported Site Urine Culture Final 08/05/17- 1350 ML Mixed bucky; possible contamination. Suggest resubmission. * ML - Main Lab . END OF REPORT DEPARTMENT OF PATHOLOGY, [address] [place] [address] Gary Olson M.D. Director [facility] # [id number] 23 Acute inflammation: >10.00 24 Because ethnic data is not always [...] 5 Kidney failure <15 (or dialysis) 25 SEE RESULT BELOW Name: PATRICK CLEVELAND : [address]: Artemio Coyne MD Acct: [id number] Unit: [id number] AGE: 86 Location: ED Re06/06/17 SEX: M Status: DEP ER SPEC: [id number] ZANA: 06/06/17-[address] [facility] [address]: Artemio Coyne MD REQ: [id number] RECD: 06/06/17 STATUS: ZAIN MATUTE DR: Daniella Garza MD _ SOURCE: STOOL SPDESC: ORDERED: Occult Bl, Robin Benson diff PCR, Stool Culture, Fecal Lactoferr Procedure [...] CONTINUED ON NEXT PAGE DEPARTMENT OF PATHOLOGY, [address] [place] [address] Gary Olson M.D. Director [facility] # [id number] Patient: PATRICK CLEVELAND [id number] (Continued) Specimen: [id number] Collected: 06/06/17 Received: 06/06/17 (Continued) Procedure Result [...] . END OF REPORT DEPARTMENT OF PATHOLOGY, [address] [place] [address] Gary Olson M.D. Director [facility] # [id number] 26 Desirable: <150 Borderline High: 150-199 High: 200-499 Very High: >500 27 Desirable: <200 Borderline High: 200-239 High: >239 28 Low: <40 Desirable: 40-60 High: >60 29 Desirable: <100 Near Optimal: 100-129 Borderline High: 130-159 High: 160-189 Very High: >189 30 Because ethnic data is not always [...] 5 Kidney failure <15 (or dialysis) 31 [facility] Severe Sepsis and Septic Shock Management Bundle Measure requires all lactic acids initially measuring >2.0 mmol/L be repeated. 32 Because ethnic data is not always readily [...] 15-29 5 Kidney failure <15 (or dialysis) 33 Acute inflammation: >10.00 34 Result TnIDx:0.06 Called to [id number] at: 20:28:41 by:[id number] Read back by: [id number] 35 >100 to <200 pg/mL: likely compensated congestive heart failure (CHF) 200 to 400 pg/mL: likely moderate CHF >400 pg/mL: likely moderate to severe CHF 36 SEE RESULT BELOW Name: PATRICK CLEVELAND : [address]: Yoselin Malloy MD Acct: [id number] Unit: [id number] AGE: 86 Location: [place] [address] Re01/03/17 SEX: M Status: ADM IN SPEC: [id number] ZANA: 01/03/[address]: Henrique Patel MD REQ: [id number] RECD: 01/03/17 STATUS: ZAIN MATUTE DR: Daniella Mcadams MD _ SOURCE: URINE SPDESC: ORDERED: Urine Culture Procedure Result Reported Site Urine Culture Final 01/04/17- 1621 ML No Growth (<1,000 CFU/mL) * ML - MAIN LAB ([facility]) . END OF REPORT * ML=Testing performed at Main Lab DEPARTMENT OF PATHOLOGY, [address] [place] [address] Gary Olson M.D. Director [facility] # [id number] 37 Because ethnic data is not always readily [...] 15-29 5 Kidney failure <15 (or dialysis) 38 SEE RESULT BELOW Name: PATRICK CLEVELAND : [address]: Ervin Villareal NP Acct: [id number] Unit: [id number] AGE: 86 Location: [facility] Re12/23/16 SEX: M Status: REG REF SPEC: [id number] ZANA: 12/23/[address]: Ervin Villareal NP REQ: [id number] RECD: 12/23/16 STATUS: RES _ SOURCE: STOOL [...] performed at Main Lab DEPARTMENT OF PATHOLOGY, [address] [place] [address] Gary Olson M.D. Director [facility] # [id number] Patient: PATRICK CLEVELAND [id number] (Continued) Specimen: [id number] Collected: 12/23/16 Received: 12/23/16 (Continued) Procedure Result Reported Site O P: Giardia/Cryptospor Screen Final (continued) 12/25/16- 1019 at [phone]. TEST LIMITATIONS: As with all diagnostic procedures, [...] not recommended. * ML - MAIN LAB ([facility]) . END OF REPORT * ML=Testing performed at Main Lab DEPARTMENT OF PATHOLOGY, [address] [place] [address] Gary Olson M.D. Director [facility] # [id number] 39 SEE RESULT BELOW Name: MEGHAPATRICK : [address]: Ervin Villareal NP Acct: [id number] Unit: [id number] AGE: 86 Location: [facility] Re12/23/16 SEX: M Status: REG REF SPEC: [id number] ZANA: 12/23/16-[address]: Ervin Villareal NP REQ: [id number] RECD: 12/23/16 STATUS: COMP _ SOURCE: STOOL [...] performed at Main Lab DEPARTMENT OF PATHOLOGY, [address] [place] [address] Gary Olson M.D. Director [facility] # [id number] Patient: PATRICK CLEVELAND [id number] (Continued) Specimen: [id number] Collected: 12/23/16 Received: 12/23/16 (Continued) Procedure Result [...] These antibiotics are not available in the [facility] Formulary Contact the Microbiology Department for [...] performed at Main Lab DEPARTMENT OF PATHOLOGY, [address] [place] [address] Gary Olson M.D. Director [facility] # [id number] Patient: PATRICK CLEVELAND [id number] (Continued) Specimen: [id number] Collected: 12/23/16 Received: 12/23/16 (Continued) Procedure Result [...] is requested. Contact the Microbiology Department at [phone]. TEST LIMITATIONS: As with all diagnostic procedures, [...] not recommended. * ML - MAIN LAB ([facility]) . END OF REPORT * ML=Testing performed at Main Lab DEPARTMENT OF PATHOLOGY, [address] [place] [address] Gary Olson M.D. Director [facility] # [id number] 40 >100 to <200 pg/mL: likely compensated congestive heart failure (CHF) 200 to 400 pg/mL: likely moderate CHF >400 pg/mL: likely moderate to severe CHF 41 Because ethnic data is not always readily [...] 15-29 5 Kidney failure <15 (or dialysis) 42 Normal Range 180 to 914 Indeterminate Range 145 to 180 Deficient Range <145 43 Desirable <150 Borderline high 150-199 High 200-499 Very High >500 44 Desirable <200 Borderline high 200-239 High >239 45 Low <40 Desirable: 40-60 High: >60 46 Desirable: <100 mg/dL Near Optimal: 100-129 mg/dL Borderline High: 130-159 mg/dL High: 160-189 mg/dL Very High: >189 mg/dL Procedures Date Code Description Status 03/24/2018 65863 ECHO Transthoracic, Real-Time 2D With Doppler And Color Completed Flow 03/24/2018 74045 ECHO Transthoracic, Real-Time 2D With Doppler And Color Completed Flow 03/01/2018 90124 EKG Tracing & Interpretation Completed 08/05/2017 32368 EKG Tracing & Interpretation Completed 04/12/2017 49556 Holter Monitor Review (24 hr)dr review & interp only Completed 04/08/2017 50545 ECHO Transthorasic Realtime 2D W Doppler & Color Flow Hosp Completed 02/23/2017 61375 EKG Tracing & Interpretation Completed 01/04/2017 49114 EKG, Interpretation Only Completed 12/31/2016 39551 ECHO Transthoracic, Real-Time 2D With Doppler And Color Completed Flow 12/31/2016 28536 ECHO Transthoracic, Real-Time 2D With Doppler And Color Completed Flow 12/10/2016 21130 EKG Tracing & Interpretation Completed Encounters Type Date Location Provider Dx Diagnosis Office Visit 04/15/2018 [facility] Internal Daniella Cotton, R19.7 Diarrhea, 2:20p Linda Ren M.D. unspecified [place] D64.9 Anemia, unspecified Office Visit 04/14/2018 [place] Clarissa Swan I42.9 Cardiomyopathy, 2:30p Cardiology Jorge N.PSintia unspecified I34.0 Nonrheumatic mitral (valve) insufficiency I50.22 Chronic systolic (congestive) heart failure D64.9 Anemia, unspecified E78.00 Pure hypercholesterolemia, unspecified I45.19 Other right bundle-branch block Office Visit 03/01/2018 2:40p [place] [facility] Raudel Cortes R19.7 Morgan Urbina M.D. unspecified D64.9 Anemia, unspecified I50.22 Chronic systolic (congestive) heart failure D50.9 Iron deficiency anemia, unspecified I42.9 Cardiomyopathy, unspecified I49.3 Ventricular premature depolarization E78.00 Pure hypercholesterolemia, unspecified I45.19 Other right bundle-branch block Office Visit 11/19/2017 1:20p [facility] Internal Daniella R19.7 DiarrheaLinda M.D. unspecified [place] D64.9 Anemia, unspecified Office Visit 09/10/2017 2:30p [place] [facility] Clarissa TejedaSintia I50.22 Chronic systolic Of [employer] Operator Foster, N.P. (congestive) heart failure D50.9 Iron deficiency anemia, unspecified I42.9 Cardiomyopathy, unspecified I49.3 Ventricular premature depolarization Office Visit 08/05/2017 [place] Raudel Cortes I49.3 Ventricular 9:20a Cardiology Brenda Mora premature depolarization D50.9 Iron deficiency anemia, unspecified I50.22 Chronic systolic (congestive) heart failure I42.9 Cardiomyopathy, unspecified E78.00 Pure hypercholesterolemia, unspecified Office Visit 06/14/2017 4:00p [facility] Internal Daniella R19.7 Diarrhea, Linda Garza M.D. unspecified [place] D64.9 Anemia, unspecified Office Visit 04/12/2017 2:20p [facility] Internal Daniella D50.9 Iron deficiency Linda Garza M.D. anemia, [place] unspecified R19.7 Diarrhea, unspecified I50.22 Chronic systolic (congestive) heart failure R26.81 Unsteadiness on feet Office Visit 04/05/2017 10:30a [facility] Yoly Frias, I50.22 Chronic systolic PA (congestive) heart failure I48.2 Chronic atrial fibrillation I34.0 Nonrheumatic mitral (valve) insufficiency Office Visit 02/23/2017 11:20a [facility] Raudel Cortes N18.9 Chronic kidney Brenda Mora disease, unspecified R94.31 Abnormal electrocardiogram [ECG] [EKG] I42.9 Cardiomyopathy, unspecified R06.02 Shortness of breath I34.0 Nonrheumatic mitral (valve) insufficiency I48.2 Chronic atrial fibrillation Office Visit 01/18/2017 11:40a [facility] Internal Daniella I50.43 Acute on chronic Linda Garza M.D. combined [place] systolic and diastolic hrt fail R19.7 Diarrhea, unspecified Office Visit 01/06/2017 7:34a [facility] Yoselin Malloy, I50.43 Acute on Assocmika M.D. chronic Hospitalists combined systolic and diastolic hrt fail N18.9 Chronic kidney disease, unspecified R74.8 Abnormal levels of other serum enzymes Office Visit 01/05/2017 7:34a [facility] Yoselin Malloy, I50.43 Acute on Assthu,mika Gutierrez chronic Hospitalists combined systolic and diastolic hrt fail N28.9 Disorder of kidney and ureter, unspecified R74.8 Abnormal levels of other serum enzymes Office [facility], I50.43 Acute on Assthu,mika Gutierrez chronic Hospitalists combined systolic and diastolic hrt fail N18.9 Chronic kidney disease, unspecified Office Visit 01/03/2017 [facility] Riley Hopson I50.43 Acute on 7:32a Assoc,mika GIMENEZ M.D. chronic Hospitalists combined systolic and diastolic hrt fail N18.9 Chronic kidney disease, unspecified R74.8 Abnormal levels of other serum enzymes Office Visit 12/28/2016 11:00a 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 [place] R19.7 Diarrhea, unspecified L89.309 Pressure ulcer of unspecified buttock, unspecified stage R53.1 Weakness R26.9 Unspecified abnormalities of gait and mobility Office Visit 12/10/2016 [place] Raudel Cortes I42.9 Cardiomyopathy, 2:00p Cardiology Brenda Mora unspecified R60.9 Edema, unspecified I50.9 Heart failure, unspecified R06.00 Dyspnea, unspecified E78.5 Hyperlipidemia, unspecified I45.10 Unspecified right bundle-branch block R94.31 Abnormal electrocardiogram [ECG] [EKG] I49.3 Ventricular premature depolarization Plan of Treatment Future Appointment(s):08/17/2018 1:30 pm - Raudel Mora M.D. at [facility]08/15/2018 2:40 pm - Daniella Garza M.D. at [facility] Internal Medicine [facility]06/16/2018 - Clarissa Patel N.P.I42.9 Cardiomyopathy, afhoduwnrhjT63.0 Nonrheumatic mitral (valve) yzvucjdzpnxntH14.22 Chronic systolic (congestive) heart failureNew Labs:B-Type Natriuretic Peptide BNP, Scheduled: 07/27/18Basic Metabolic Panel, Scheduled: 07/27/18Follow up:OV 2018 [facility] as scheduled.E78.00 Pure hypercholesterolemia, [id number] CoughNew Medication:Mucinex 600 mg - 1 tab by mouth 2x daily
--- NOTE | 2018-07-14 17:21 | ED ---
Head Injury - HPI Summary HPI Summary: This patient is a 87 year old M presenting to [facility] with a chief complaint of a head injury since earlier today. At the time, he was exercising while using his walker. His slipper came off, so an aid instructed him to lift up his foot so that the slipper could be put back on his foot. Patient lost his balance while standing on one foot and fell backwards, hitting his posterior head and right elbow. The aid witnessed the fall and helped him stand up. Patient denies LOC and remembers everything. Per the triage note, the patient rates the pain 2/10 in severity. Patient reports posterior head pain post-fall, a laceration on his posterior head, right elbow pain, prior toe pain, and prior weakness in his extremities from AV malformation. Patient denies CP, trouble breathing, headache , dizziness, any other discomfort, abdominal pain, nausea, neck pain, and rib pain. Patient is not on blood thinners, including Coumadin, Eliquis, and aspirin. Pt wears continuous oxygen nasal cannula and has a chronic indwelling Marie. He is able to walk with a walker and someone assisting him. 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 Dr. Daniella Garza is his PCP. PMHx of mild dementia, [place], and CHF. Denies PMHx of neck problems, neck fractures, and glaucoma. 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 Daughter states she does not feel the pt had proper evaluation. Patient was triage level 3. Patient was seen by the physician at 1710pm and laceration was evaluated and hx of mechanical fall, in pt with mild dementia, not on anticoagulants or ASA, CT brain was ordered first by Gloria Max and need for CT was confirmed by Dr. Clark after preliminary evaluation. Daughter, RAJ, HCP who lives with pt and is [employer], who formally worked at [employer], declines CT brain and states she does not think he needs it. Daughter also spoke with her sister by phone who also agreed with daughter that pt did not need a CT. Daughter was upset that pt's full evaluation was not until 20:28. Pt has remained seated in a wheelchair in no distress during his time in the ED. Medication list from the daughter: 1. Donepezil HCL 10 mg one a day (N) 2. Finasteride 5mg once a day (D) 3. Lasix 40mg x2 once a day (D) 4. Spironolactone 25mg once a day (D) 5. Entresto 24mg to 26mg twice a day (B) 6. Tamsulosin HCL 0.4mg capsule (N) 7. Metoprolol Succinate ER 25 mg half tab twice day (B) 8. Rosuvastatin Calcium 5mg for couple months 9. Diphenoxylate-atropine 2.5-0.025 2 tabs twice a day (B) 10. H26-kklvo 3000 mg once a day (D) 11. Iron 18mg 2 tabs (not taking now) 12. Digoxin 125 mcg tab 3 days week (D) 13. Lactaid 14. Sertraline HCL 25 mg 1 tab daily 15. Digestive Advantage-Probiotic Home Medications Medication Instructions Recorded Confirmed Type Finasteride TAB* [Proscar TAB*] 5 mg PO DAILY 01/03/17 05/02/18 History Tamsulosin CAP* [Flomax CAP*] 0.4 mg PO DAILY 01/03/17 05/02/18 History Donepezil TAB* [Aricept 5 MG TAB*] 5 mg PO DAILY 06/06/17 05/02/18 History Digoxin TAB* [Lanoxin TAB*] 0.125 mg PO MOWEFR 01/04/18 05/02/18 History Diphenoxylat/Atrop 2.5-0.025M* 1 - 2 tab PO TID PRN MDD 6 tabs 01/04/18 History [Lomotil TAB*] Metoprolol Succinate XL TAB* 25 mg PO BID 01/04/18 05/02/18 History [Toprol XL TAB*] Rosuvastatin (NF) [Crestor (NF)] 5 mg PO BEDTIME 01/04/18 05/02/18 History Sacubitril/Valsartan (NF) 1 tab PO BID 01/04/18 05/02/18 History [Entresto (NF)] Sertraline* [Zoloft*] 25 mg PO DAILY 01/04/18 05/02/18 History Spironolactone TAB* [Aldactone 25 mg PO DAILY 10/09/18 02/04/19 History TAB*] Furosemide TAB* [Lasix TAB*] 80 mg PO DAILY 05/02/18 05/02/18 History - History Of Current Complaint Chief Complaint: EDHeadInjury Stated Complaint: FALL, HEAD INJURY PER DAUGHTER Time Seen by Provider: 07/14/18 17:11 Hx Obtained From: Patient, Family/Frog Shaker - Daughter Mechanism Of Injury: Fall From A Standing Position Pain Intensity: 2 Pain Scale Used: 0-10 Numeric Location of Head Injury: Occipital - Posterior Location: Discrete At: - Posterior occipital Associated Signs And Symptoms: LOC (Time In Secs./Mins/Hrs) - Denies, LOC Duration Unknown - Denies, Neck Pain - Denies, Nausea - Denies, Headache - Posterior head pain, Other: - Laceration on his posterior head, right elbow pain , prior extremity weakness from AV malformation, and prior toe pain. Denies CP, trouble breathing, headache, dizziness, other discomfort, abdominal pain, and rib pain. - Allergies/Home Medications Allergies/Adverse Reactions: Allergies Allergy/AdvReac Type Severity Reaction Status Date / Time shellfish derived Allergy Hives Verified 07/14/18 16:47 PMH/Surg Hx/FS Hx/Imm Hx Cardiovascular History: Reports: Hx Cardiac Arrest, Hx Congestive Heart Failure , Hx Coronary Artery Disease, Hx Hypercholesterolemia, Hx Hypertension Respiratory History: Reports: Other Respiratory Problems/Disorders - HX OF PLEURAL EFFUSION GI History: Reports: Hx Ulcer - stomach History: Reports: Hx Benign Prostatic Hyperplasia, Other Problems/ Disorders - urethral stricture Sensory History: Reports: Hx Cataracts, Hx Contacts or Glasses Denies: Hx Hearing Aid Opthamlomology History: Reports: Hx Cataracts, Hx Contacts or Glasses Neurological History: Reports: Hx Dementia Psychiatric History: Reports: Other Psychiatric Issues/Disorders - dementia - Surgical History Surgery Procedure, Year, and Place: Brain AVM SX Infectious Disease History: No Infectious Disease History: Denies: Traveled Outside the [place] in Last 30 Days Comment Only: History Other Infectious Disease - recently diagnosed bladder infection - Family History Known Family History: Negative: Diabetes - Social History Occupation: Retired Alcohol Use: None Hx Substance Use: No Substance Use Type: Reports: None Hx Tobacco Use: No Smoking Status (MU): Former Smoker Review of Systems Negative: Other - Neck pain Negative: Chest Pain Negative: Shortness Of Breath Negative: Abdominal Pain, Nausea Positive: Other - Right elbow pain and prior toe pain. Denies rib pain. Positive: Other - Laceration on posterior head Neurological: Other - Prior extremity weakness from AV malformation. Denies dizziness. Positive: Headache - Posterior head pain. Negative: Syncope All Other Systems Reviewed And Are Negative: Yes Physical Exam - Summary Physical Exam Summary: Appearance: Ill-appearing, moderate pain distress, well-nourished, hoarse voice Skin: Warm, color reflects adequate perfusion, dry Head: 3 cm lac on his posterior occipital Eyes: Conjunctiva clear. Pupils 1 mm and theyre reactive. ENT: Normal inspection Neck: Supple, no nodes, no JVD. Carotid pulses 2+ bilaterally. No neck tenderness, no bruising or ecchymosis to his neck. Respiratory: Lungs clear, normal breath sounds, no respiratory distress Cardio: RRR, No murmur, pulses normal, brisk capillary refill. Chest is non- tender to palpation, no rib tenderness. No ecchymosis or bruising on chest. Abdomen: Soft, nontender Bowel sounds: Present Musculoskeletal: Strength Intact/ROM intact, no calf tenderness, no edema. No swelling, abrasion, or sign of trauma to his right elbow. Full ROM to his right elbow. Psychological: Normal Neuro: A&O x3, motor function 5/5, sensation intact, cerebellar normal. Hemiparesis (old). Only able to stand with a walker and an title i assistant. GI: Marie is draining clear, yellow urine. Triage Information Reviewed: Yes Vital Signs On Initial Exam: Initial Vitals Temp Pulse Resp BP Pulse Ox 97.4 F 61 16 141/54 99 07/14/18 16:41 07/14/18 16:41 07/14/18 16:41 07/14/18 16:41 07/14/18 16:41 Vital Signs Reviewed: Yes Procedures - Procedure Summary Procedure Summary: Procedure note: Laceration repair scalp Informed consent was obtained before procedure started and the appropriate timeout was taken. The area was prepped and draped in the usual sterile fashion. Patient elected not to receive local anesthetic. The wound was thoroughly cleansed with a sterile saline and chlorhexadine solution. The wound was explored and no FB noted. The wound margins were brought into good alignment and 2 rock were placed. Total length of laceration post-repair was 2 cm. Estimated blood loss was minimal. A dressing was applied to the area. Anticipatory guidance, as well as standard post-procedure care was discussed with patient. Return precautions are given. The patient tolerated the procedure well without complications. Patient is to follow up in 5-7 days for suture removal and evaluation of the laceration. Diagnostics - Vital Signs Vital Signs Temp Pulse Resp BP Pulse Ox 07/14/18 16:41 97.4 F 61 16 141/54 99 - Laboratory Lab Statement: Any lab studies that have been ordered have been reviewed, and results considered in the medical decision making process. Re-Evaluation - Re-Evaluation 1 Re-Evaluation Time: 20:19 Change: Unchanged Comment: Pt remains seated in wheelchair in no apparent distress. Denies pain. Pt is his usual self per daughter. Head Injury Course/Dx Course Of Treatment: This patient is a 87 year old M presenting to [facility] with a chief complaint of a head injury, scalp laceration and reported mechanical fall with no LOC since earlier today. Pt is not on anticoagulants. I asked the PA to repair pt's laceration which was done with 2 rock without incident. Patient s daughter, Hattie Cotton, is the healthcare proxy. She has decided AMA not to get a CT scan for the patient because of the cost. She is also an x-ray tech. After she discussed this with the patient and her sister (an RN), they feel that he does not meet the criteria to get a CT at this time. I informed the patient of the risks, including the possibility of him suffering a subdural hematoma, intracerebral bleed, skull fracture, worsening mental status, and they still choose to refuse the CT brain. Daughter and pt signed AMA for refusing the CT. They do agree to full evaluation and discharge instructions, so pt is not discharged AMA, is only AMA for refusing the CT brain. - Diagnoses Differential Diagnosis/HQI/PQRI: Cerebral Contusion, Concussion Without LOC, Hematoma, Intracranial Bleed, Laceration, Skull Fracture Provider Diagnoses: Fall, Scalp laceration, Head injury Discharge - Sign-Out/Discharge Documenting (check all that apply): Patient Departure - D/C home Patient Received Moderate/Deep Sedation with Procedure: No - Discharge Plan Condition: Stable Disposition: HOME Patient Education Materials: Laceration (ED), Fall Prevention for Older Adults (ED), Head Injury (ED) Referrals: Daniella Garza MD [Primary Care Provider] - 2 Days Additional Instructions: You have 2 rock in the back of your head in your laceration. These should be covered with a bandage and use antibiotic ointment. The bandage should be changed daily. Keep the wound dry and watch for infection. The rock should be removed in 10 days. The rock require a special tool to remove them, so wherever you choose to have his rock removed, please be sure that they have the proper tool. You have declined a CT scan of your brain today, and you have signed papers with Dr. Clark and the nurse stating that you do not wish this scan that was recommended by Dr. Clark. Please understand that if you feel his condition changes or you decide you would like the scan, you may return at any time. If you do this, you will need to sign in again in the ER to be evaluated. We do not feel that you had a concussion at this time. You should be observed by your daughter bernadette for any change in your condition. Please return to the ER if you have any new or worsening symptoms. - Billing Disposition and Condition Condition: STABLE Disposition: Home - Attestation Statements Document Initiated by Scribe: Yes Documenting Scribe: Kike Loya Provider For Whom Scribe is Documenting (Include Credential): Sara Clark MD Scribe Attestation: Kike Schmitt, scribed for Sara Clark MD on 07/17/18 at 1203. Status of Scribe Document: Viewed
[2018-07-14 22:18] VITALS: BP 114/58
== END 2018-07-14 22:10 | disposition home or self-care (01) ==
LOC: ED 16:37
DX: S01.01XA Laceration without foreign body of scalp, initial encounter (principal); W01.0XXA Fall on same level from slipping, tripping and stumbling without subsequent striking against object, initial encounter; Y93.B9 Activity, other involving muscle strengthening exercises; I11.0 Hypertensive heart disease with heart failure; I25.2 Old myocardial infarction; I50.9 Heart failure, unspecified; I25.10 Atherosclerotic heart disease of native coronary artery without angina pectoris; F03.90 Unspecified dementia, unspecified severity, without behavioral disturbance, psychotic disturbance, mood disturbance, and anxiety; E78.00 Pure hypercholesterolemia, unspecified; N40.0 Benign prostatic hyperplasia without lower urinary tract symptoms; Z86.74 Personal history of sudden cardiac arrest; Z87.891 Personal history of nicotine dependence; Z79.899 Other long term (current) drug therapy
CPT/HCPCS: 12001; 99282